=== PATIENT | female | born 1955 | race Caucasian/White ===

== ENCOUNTER → 2018-09-16 | Day surgery (SDC) | payer MEDICAID ==
[~2018-09-16] VITALS: Ht 149.9 cm; Wt 90.7 kg
[~2018-09-16] MED LIST: ACHD5005 PO; ATOR20TA66 PO; ATR20T PO; CALC-787 PO; CARV3.122 PO; CIPR500T78 PO; EQUATE PAIN RELIEVER PO; FESO8TAB PO; FURO40TA4 PO; HYDR25TA4 PO; LBT200T PO; LIDOCAINE 1% INJ 20 ML 20 ML VIAL INJ ONE; LOSA100T57 PO; LOSA100T7 PO; LOSA1TAB23 PO; MIRA25TA PO; MULT-35 PO; NITR-65 PO; OMEP10CA2 PO; OMEP20CA12 PO; OXYB5TAB9 PO; PHEN-640 PO; POTA10TA PO; POTA10TA36 PO; SERT50TA2 PO; SERT50TA9 PO; SOLI10TA4 PO; TOPI50TA37 PO; TRAM50TA2 PO
[2018-09-16 11:06] VITALS: BP 177/87
[2018-09-16 11:21] LABS: BASOPHILS # (AUTO) 0.1 10^3/uL (0.0-0.1); BASOPHILS % (AUTO) 1 % (0-10); EOSINOPHILS % (AUTO) 1 % (0-10); HEMATOCRIT 41 % (35-52); HEMOGLOBIN 13.8 G/DL (11.5-16.0); LYMPHOCYTES # (AUTO) 1.9 X 10^3 (1.0-4.0); LYMPHOCYTES % (AUTO) 34 % (12-44); MEAN CORPUSCULAR HEMOGLOBIN 30 PG (25-34); MEAN CORPUSCULAR HGB CONC 34 G/DL (32-36); MEAN CORPUSCULAR VOLUME 88 FL (80-99); MEAN PLATELET VOLUME 10.7 FL (7.4-10.4); MONOCYTES # (AUTO) 0.5 X 10^3 (0.0-1.0); MONOCYTES % (AUTO) 10 % (0-12); NEUTROPHILS % (AUTO) 55 % (42-75); PLATELET COUNT 183 10^3/uL (130-400); RED CELL DISTRIBUTION WIDTH 13.7 % (10.0-14.5); WHITE BLOOD COUNT 5.5 10^3/uL (4.3-11.0)
[2018-09-16 11:42] LABS: ERYTHROCYTE SEDIMENTATION RATE 11 MM/HR (0-30)
[2018-09-16 11:54] LABS: ALBUMIN 4.2 GM/DL (3.2-4.5); BILIRUBIN,TOTAL 0.9 MG/DL (0.1-1.0); CALCIUM 9.9 MG/DL (8.5-10.1); CREATININE SERUM 1.16 MG/DL (0.60-1.30); MAGNESIUM 2.1 MG/DL (1.8-2.4); POTASSIUM 3.3 MMOL/L (3.6-5.0); TOTAL PROTEIN 7.3 GM/DL (6.4-8.2)
[2018-09-16 13:35] VITALS: BP 164/80
--- OUTSIDE RECORDS SUMMARY | 2018-09-16 16:37 | XMS REPORT | Encounter Summary ---
Author Author [facility] Organization [facility] Address Unknown Phone Unavailable Care Team Providers Care Optomechanical Technician Name Role Phone Sergey Brito PCP Encounter Details Care Team Description Date Type Department Nhi Steward MD [address] Ortho/Med Pavilion L[address] [place] [address] Unspecified urinary incontinence 07/13/2018 [facility] [address] [address] Social History Date Tobacco Use Types Packs/Day Years Used Never Smoker Smokeless Tobacco: Never Used Alcohol Use Drinks/Week oz/Week Comments Never Alcohol Habits Answer Date Recorded How often do you have a drink containing alcohol? Never 07/13/2018 How many drinks containing alcohol do you have on Not asked a typical day when you are drinking? How often do you have six or more drinks on one Not asked occasion? Sex Assigned at Date Recorded Not on file Industry Job Start Date Occupation Not on file Not on file Not on file Travel End Travel History Travel Start No recent travel history available. documented as of this encounter Medications at Time of Discharge Start Date End Date Medication Sig Dispensed Refills 07/01/2018 atorvastatin (LIPITOR) 20 0 mg tablet 07/01/2018 carvedilol (COREG) 3.125 0 mg tablet 07/14/2018 estradiol (ESTRACE) 0.01 Insert or 42.5 g 11 % (0.1 mg/g) vaginal Apply one g creamIndications: Urinary to vaginal incontinence, unspecified area three type times weekly. Apply as directed, apply at bedtime, fingertip application 07/01/2018 furosemide (LASIX) 40 mg 0 tablet Ibuprofen-Diphenhydramine Take by 0 (ADVIL PM) 200-38 mg tab mouth. 07/01/2018 losartan-hydrochlorothiaz 0 zachery (HYZAAR) 100-25 mg tablet mirabegron(+) ER Daily 0 (MYRBETRIQ) 25 mg tablet naproxen sodium(+) Take 1 tablet 0 (ALEVE) 220 mg tablet by mouth twice daily. Take with food. 07/01/[address](+) 0 (PRILOSEC) 20 mg capsule Phentermine (LOMAIRA) 8 Take by 0 mg tab mouth. 07/01/2018 potassium chloride 0 (K-DUR) 10 mEq tablet 07/01/2018 sertraline (ZOLOFT) 100 0 mg tablet 07/01/2018 topiramate (TOPAMAX) 100 0 mg tablet documented as of this encounter Plan of Treatment Not on filedocumented as of this encounter Procedures Comments Procedure Name Priority Date/Time Associated Diagnosis URINALYSIS, MICROSCOPIC Routine 07/13/2018 Urinary incontinence, 9:00 AM CDT unspecified type URINALYSIS DIPSTICK Routine 07/13/2018 Urinary incontinence, 9:00 AM CDT unspecified type documented in this encounter Results * URINALYSIS, MICROSCOPIC (07/13/2018 9:00 AM CDT) WBCs,UA 2-10 0 - 2 /HPF [facility] RBCs,UA 0-2 0 - 3 /HPF [facility] MucousUA 2+ [facility] Squamous 2-5 0 - 5 [facility] Epithelial Cells Specimen Urine - Urine Performing Organization Address City/State/Zipcode Phone Number [facility] [address] [place] [address] * URINALYSIS DIPSTICK (07/13/2018 9:00 AM CDT) Color,UA PAPO [facility] Turbidity,UA 2+ (A) CLEAR-CLEAR [facility] Specific 1.032 1.003 - 1.035 [facility] [place]-Urine pH,UA 5.0 5.0 - 8.0 [facility] Protein,UA 2+ (A) NEG-NEG [facility] Glucose,UA NEG NEG-NEG [facility] Ketones,UA NEG NEG-NEG [facility] Bilirubin,UA NEG NEG-NEG [facility] Blood,UA NEG NEG-NEG [facility] Urobilinogen,UA INCREASED (A) NORM-NORMAL [facility] Nitrite,UA NEG NEG-NEG [facility] Leukocytes,UA 1+ (A) NEG-NEG [facility] Urine Ascorbic NEG NEG-NEG [facility] Acid, UA Specimen Urine - Urine Performing Organization Address City/State/Zipcode Phone Number [facility] [address] [place] [address] documented in this encounter Visit Diagnoses Diagnosis Urinary incontinence, unspecified type documented in this encounter
--- OUTSIDE RECORDS SUMMARY | 2018-09-16 16:37 | XMS REPORT | Clinical Summary ---
Author Author [facility] Organization [facility] Address Unknown Phone Unavailable Care Team Providers Care Shoe Fitter Name Role Phone Sergey Brito PCP Source Comments Some departments are not documenting in the electronic medical record. If you d o not see the information that you expected, contact Release of Information in [facility] [employer] Information Management department at [phone] for further assistan ce in locating additional records.[facility] Allergies Comments Active Allergy Reactions Severity Noted Date Josr Inhibitors COUGH Low 07/13/2018 "Makes me real depressed and cry." Oxycodone SEE COMMENTS Low 12/02/2017 Medications End Date Status Medication Sig Dispensed Refills Start Date Active losartan-hydrochlorothiaz 0 zachery (HYZAAR) 100-25 mg 9 tablet Active mirabegron(+) ER Daily 0 (MYRBETRIQ) 25 mg tablet Active atorvastatin (LIPITOR) 20 0 mg tablet [address](+) 0 (PRILOSEC) 20 mg capsule 9 Active furosemide (LASIX) 40 mg 0 tablet 9 Active sertraline (ZOLOFT) 100 0 mg tablet 9 Active potassium chloride 0 (K-DUR) 10 mEq tablet 9 Active carvedilol (COREG) 3.125 0 mg tablet 9 Active topiramate (TOPAMAX) 100 0 mg tablet 9 Active naproxen sodium(+) Take 1 tablet 0 (ALEVE) 220 mg tablet by mouth twice daily. Take with food. Active Ibuprofen-Diphenhydramine Take by 0 (ADVIL PM) 200-38 mg tab mouth. Active Phentermine (LOMAIRA) 8 Take by 0 mg tab mouth. Active estradiol (ESTRACE) 0.01 Insert or 42.5 g 11 07/14/201 % (0.1 mg/g) vaginal Apply one g 9 creamIndications: Urinary to vaginal incontinence, unspecified area three type times weekly. Apply as directed, apply at bedtime, fingertip application Active Problems Problem Noted Date Urge incontinence 07/13/2018 Overview: Referred Dr Palmer 07/13/18 Persistent incontinence ~ UI Denies SANCHEZ History bladder suspension with mesh ~ per patient x 2 Urethral bulking x 2, most recent 11/2017 ~ macroplastique L ast Assessment & Plan: UA micro Recommend Vaginal estrace cream recommend discontinuing Myrbetriq with elevated BP Hold on starting other bladder medications at this time Avoid dietary irritants Recommend Timed and double void Urge suppression Likely candidate for Interstim, she met with Dr Steward and she would like to proceed with Interstim, 09/01/18, 09/08/18 Panel Information With CPT Code Panel 1 Surgeon Role Nhi Steward MD Primary Procedure Laterality Anesthesia INCISION FOR IMPLANTATION SACRAL NERVE NEUROSTIMULATOR ELECTRODE ARRAY [96193 (CPT)] N/A Monitored Anesthesia Care (MAC) Panel Information With CPT Code Panel 1 Surgeon Role Nhi Steward MD Primary Procedure Laterality Anesthesia INSERTION/ REPLACEMENT PERIPHERAL/ GASTRIC NEUROSTIMULATOR PULSE GENERATOR/ MANAGER CULINARY/ DIRECTOR/ INDUCTIVE COUPLING [94738 (CPT)] N/A Monitored Anesthesia Care (MAC) Encounters Care Team Description Date Type Specialty Nhi Steward MD Unspecified urinary incontinence 07/13/2018 Hospital Lab Encounter Nhi Steward MD Urinary incontinence, unspecified type (Primary Dx); Urge incontinence 07/13/2018 Office Visit Urology Nhi Steward MD Urge incontinence (Primary Dx) 07/13/2018 Prep for Case Urology from Last 3 Months Family History Medical History Relation Name Comments Heart Attack Brother Hypertension Brother Kidney Disease Brother Stroke Brother Heart Attack Father Hypertension Father Heart Attack Mother Hypertension Mother Diabetes Sister Heart Attack Sister Hypertension Sister Relation Name Status Comments Brother Father Mother Sister Social History Date Tobacco Use Types Packs/Day [...] Travel Start No recent travel history available. Last Filed Vital Signs Time Taken Vital Sign Reading 07/13/2018 9:00 AM CDT Blood Pressure 165/96 07/13/2018 9:00 AM CDT Pulse 62 - Temperature - - Respiratory Rate - - Oxygen Saturation - - Inhaled Oxygen - Concentration 07/13/2018 8:59 AM CDT Weight 93.4 kg (206 lb) 07/13/2018 8:59 AM CDT Height 149.9 cm (4' 11") 07/13/2018 8:59 AM CDT Body Mass Index 41.61 Plan of Treatment Health Maintenance Due Date Last Done Comments HEPATITIS C SCREENING 1953 PHYSICAL (COMPREHENSIVE) 1960 EXAM HIV SCREENING 1968 DTAP/TDAP VACCINES (1 - 12/01/1971 Tdap) CERVICAL CANCER SCREENING 12/01/1983 BREAST CANCER SCREENING 1993 COLORECTAL CANCER 12/01/2003 SCREENING SHINGLES RECOMBINANT 12/01/2003 VACCINE (1 of 2) INFLUENZA VACCINE 01/11/2019 06/19/2009 Procedures Comments Procedure Name Priority Date/Time Associated Diagnosis URINALYSIS, MICROSCOPIC Routine 07/13/2018 Urinary incontinence, 9:00 AM CDT unspecified type URINALYSIS DIPSTICK Routine 07/13/2018 Urinary incontinence, 9:00 AM CDT unspecified type POC URINE DIPSTICK MANUAL Routine 07/13/2018 Urinary incontinence, READ unspecified type from Last 3 Months Results * URINALYSIS, MICROSCOPIC (07/13/2018 9:00 AM CDT) WBCs,UA 2-10 0 - 2 /HPF [facility] RBCs,UA 0-2 0 - 3 /HPF [facility] MucousUA 2+ [facility] Squamous 2-5 0 - 5 [facility] Epithelial Cells Specimen Urine - Urine Performing Organization Address City/State/Zipcode Phone Number [facility] [address] [place] [address] * URINALYSIS DIPSTICK (07/13/2018 9:00 AM CDT) Color,UA PAPO [facility] Turbidity,UA 2+ (A) CLEAR-CLEAR [facility] Specific 1.032 1.003 - 1.035 [facility] [place]-Urine pH,UA 5.0 5.0 - 8.0 [facility] [...] Specimen Urine - Urine Performing Organization Address City[facility] Phone Number [facility] [address] [place] [address] * POC URINE DIPSTICK MANUAL READ (07/13/2018) Urine Glucose neg IN CLINIC POC Urine Bilirubin neg IN CLINIC POC Urine Ketone neg IN CLINIC POC Urine Specific 1.030 IN CLINIC [place] POC Urine Blood POC trace IN CLINIC Urine PH POC 6.0 IN CLINIC Urine Protein 100 IN CLINIC POC Urine 0.2 IN CLINIC Urobilinogen POC Urine Nitrite neg IN CLINIC POC Urine neg IN CLINIC Leukocytes POC Color,UA yellow IN CLINIC Turbidity,UA cloudy IN CLINIC Specimen Urine - Urine Performing Organization Address City/[facility]/Zipcode Phone Number IN CLINIC from Last 3 Months Insurance Type Payer Benefit Subscriber ID Effective Phone Address Plan / Dates Group AETNA MEDICAID AETNA xxxxxxxxxxx 2018-P [facility] Advance Directives Patient has advance care planning documents on file. For more information, everette barrera contact: [facility] [address] [place] [address]
--- OUTSIDE RECORDS SUMMARY | 2018-09-16 16:37 | XMS REPORT | Encounter Summary ---
Author Author [facility] Organization [facility] Address Unknown Phone Unavailable Care Team Providers Care Cargo Worker Name Role Phone Sergey Brito PCP Encounter Details Care Team Description Date Type Department Nhi Steward MD [address] Ortho/Med Pavilion [address] A [place], [place] [id number] Urge incontinence (Primary Dx) 07/13/2018 Prep for Case [facility] [address] [place] [id number] Social History Date Tobacco Use Types Packs/Day [...] history available. documented as of this encounter Plan of Treatment Not on filedocumented as of this encounter Visit Diagnoses Diagnosis Urge incontinence - Primary documented in this encounter
--- OUTSIDE RECORDS SUMMARY | 2018-09-16 16:38 | XMS REPORT | Continuity of Care Document ---
Demographics Preferred Language Unknown Marital Status Unknown Holiness Affiliation Unknown Race Unknown Ethnic Group Unknown Author Organization Unknown Address Unknown Allergies Active Description Code Type Severity Reaction Onset Reported/Identified Relationship to Patient Clinical Status Yes NIKOLE INHIBITORS NIKOLE INHIBITORS MILD Yes NIKOLE INHIBITORS MILD MILD Yes NIKOLE INHIBITORS MILD SIDE EFFECT Yes OXYCODONE MODERATE MODERATE Yes OXYCODONE MODERATE OTHER Yes NIKOLE Inhibitors [id number] Drug Allergy Unknown N/A 04/11/2011 Yes NIKOLE Inhibitors [id number] Drug Allergy Mild COUGH 12/02/2017 Yes oxycodone [id number] Drug Allergy Mild DEPRESSION 12/02/2017 Medications Medication Packaging Start Date Stop Date Route Dosage Sig AMLODIPINE TAB 10 MG (NORVASC) MG 08/16/2018 08/16/2018 ONCE&1358 CLONIDINE TTS-2 PATCH PAT 0.2 MG (CATAPRES TTS-2 WEEKLY PATCH) 08/16/2018 08/20/2018 Q1WK&1700 POTASSIUM CHLORIDE TAB 10 MEQ (K-DUR) Dose(s) 08/16/2018 08/23/2018 BID&0800,2000 NITROGLYCERIN PATCH PAT 0.2 MG MG 08/17/2018 08/23/2018 Daily&0900 SERTRALINE TAB 50 MG (ZOLOFT) Dose(s) 08/17/2018 08/23/2018 Daily&0900 LOSARTAN TAB 100 MG (COZAAR) MG 08/17/2018 08/23/2018 Daily&0900 FUROSEMIDE TAB 40 MG (LASIX) MG 08/17/2018 08/23/2018 Daily&0900 MultiVits (Thera M Plus) (gjtobqiv-jzkq-emqfgeh) oral tablet Dose(s) 08/17/2018 09/15/2018 Daily&0900 CALCIUM 600MG W VIT D TAB 600 MG (OSCAL/W VIT D) Dose(s) 08/17/2018 08/23/2018 Daily&0900 CARVEDILOL TAB 3.125 MG (COREG) MG 08/17/2018 08/17/2018 ONCE&0800,2000 Problems Date Dx Coded Attending Type Code Diagnosis Diagnosed By 09/12/2014 Ot 278.00 09/12/2014 Ot 401.9 09/12/2014 Ot 424.0 09/12/2014 Ot 429.3 09/12/2014 Ot V72.84 09/30/2014 RENETTA HAZEL, ZAMZAM Bonner Ot 596.51 09/30/2014 RENETTA HAZEL, ZAMZAM Bonner Ot 599.82 09/30/2014 RENETTA HAZEL, ZAMZAM Bonner Ot 788.33 10/03/2014 RENETTA HAZEL, ZAMZAM Bonner Ot 596.51 10/03/2014 RENETTA HAZEL, ZAMZAM Bonner Ot 599.82 10/03/2014 RENETTA HAZEL, ZAMZAM Bonner Ot 788.30 10/03/2014 RENETTA HAZEL, ZAMZAM Bonner Ot V72.63 10/03/2014 RENETTA HAZEL, ZAMZAM Bonner Ot V74.8 01/12/2015 BAIMA, CHARISSA L CLIENT CARE MANAGER Ot 272.4 01/12/2015 BAIMA, CHARISSA L CLIENT CARE MANAGER Ot 278.00 01/12/2015 BAIMA, CHARISSA L CLIENT CARE MANAGER Ot 401.9 01/12/2015 BAIMA, CHARISSA L CLIENT CARE MANAGER Ot 786.09 01/12/2015 BAIMA, CHARISSA L CLIENT CARE MANAGER Ot 272.4 01/12/2015 BAIMA, CHARISSA L CLIENT CARE MANAGER Ot 278.00 01/12/2015 BAIMA, CHARISSA L CLIENT CARE MANAGER Ot 401.9 01/12/2015 BAIMA, CHARISSA L CLIENT CARE MANAGER Ot 786.09 06/14/2015 BAIMA, CHARISSA L CLIENT CARE MANAGER Ot 272.4 06/14/2015 BAIMA, CHARISSA L CLIENT CARE MANAGER Ot 278.00 06/14/2015 BAIMA, CHARISSA L CLIENT CARE MANAGER Ot 401.9 06/14/2015 BAIMA, CHARISSA L CLIENT CARE MANAGER Ot 786.09 02/12/2016 W 278.00 OBESITY, UNSPECIFIED 02/12/2016 W 456.8 02/12/2016 W 553.3 DIAPHRAGMATIC HERNIA WITHOUT MENTION OF OBSTRUCTION OR GANGRENE 02/12/2016 W 562.12 02/12/2016 W 569.0 02/12/2016 W 716.90 ARTHROPATHY, UNSPECIFIED, SITE UNSPECIFIED 02/12/2016 W E66.9 OBESITY, UNSPECIFIED 02/12/2016 W I86.8 VARICOSE VEINS OF OTHER SPECIFIED SITES 02/12/2016 W K21.9 GASTRO-ESOPHAGEAL REFLUX DISEASE WITHOUT ESOPHAGITIS 02/12/2016 W K57.30 DVRTCLOS OF LG INT W/O PERFORATION OR ABSCESS W/O BLEEDING 02/12/2016 W K62.0 ANAL POLYP 02/12/2016 A K62.1 RECTAL POLYP 02/12/2016 W M08.90 JUVENILE ARTHRITIS, UNSPECIFIED, UNSPECIFIED SITE 02/12/2016 W V12.3 PERSONAL HISTORY OF DISEASES OF BLOOD AND BLOOD-FORMING ORGANS 02/12/2016 W V12.72 02/12/2016 W Z86.010 PERSONAL HISTORY OF COLONIC POLYPS 02/12/2016 W Z86.2 PERSONAL HISTORY OF DISEASES OF THE BLOOD AND BLOOD-FORMING ORGANS AND CERTAIN DISORDERS INVOLVING THE IMMUNE MECHANISM 03/17/2017 Sergey Brito 401.9 UNSPECIFIED ESSENTIAL HYPERTENSION 03/17/2017 Sergey Brito I10 ESSENTIAL (PRIMARY) HYPERTENSION 03/17/2017 Sergey Brito 272.4 OTHER AND UNSPECIFIED HYPERLIPIDEMIA 03/17/2017 Sergey Brito 401.9 UNSPECIFIED ESSENTIAL HYPERTENSION 03/17/2017 Sergey Brito E78.5 HYPERLIPIDEMIA, UNSPECIFIED 03/17/2017 Sergey Brito I10 ESSENTIAL (PRIMARY) HYPERTENSION 03/17/2017 Sergey Brito 272.4 OTHER AND UNSPECIFIED HYPERLIPIDEMIA 03/17/2017 Sergey Brito 401.9 UNSPECIFIED ESSENTIAL HYPERTENSION 03/17/2017 Sergey Brito E78.5 HYPERLIPIDEMIA, UNSPECIFIED 03/17/2017 Sergey Brito W I10 ESSENTIAL (PRIMARY) HYPERTENSION 03/17/2017 Sergey Brito 272.4 OTHER AND UNSPECIFIED HYPERLIPIDEMIA 03/17/2017 Sergey Brito 401.9 UNSPECIFIED ESSENTIAL HYPERTENSION 03/17/2017 Sergey Brito E78.5 HYPERLIPIDEMIA, UNSPECIFIED 03/17/2017 Sergey Brito I10 ESSENTIAL (PRIMARY) HYPERTENSION 03/17/2017 Sergey Brito 272.4 OTHER AND UNSPECIFIED HYPERLIPIDEMIA 03/17/2017 Sergey Brito 401.9 UNSPECIFIED ESSENTIAL HYPERTENSION 03/17/2017 Sergey Brito E78.5 HYPERLIPIDEMIA, UNSPECIFIED 03/17/2017 Sergye Brito I10 ESSENTIAL (PRIMARY) HYPERTENSION 03/17/2017 Sergey Brito 272.4 OTHER AND UNSPECIFIED HYPERLIPIDEMIA 03/17/2017 Alisha, Sergey W 401.9 UNSPECIFIED ESSENTIAL HYPERTENSION 03/17/2017 Paarie, Sergey W E78.5 HYPERLIPIDEMIA, UNSPECIFIED 03/17/2017 Paarie, Sergey W I10 ESSENTIAL (PRIMARY) HYPERTENSION 03/17/2017 Paarie, Sergey W 272.4 OTHER AND UNSPECIFIED HYPERLIPIDEMIA 03/17/2017 Paarie, Sergey W 401.9 UNSPECIFIED ESSENTIAL HYPERTENSION 03/17/2017 PaSergey sargent W E78.5 HYPERLIPIDEMIA, UNSPECIFIED 03/17/2017 Paarie, Sergey W I10 ESSENTIAL (PRIMARY) HYPERTENSION 06/04/2017 Paarie, Sergey W 401.0 MALIGNANT ESSENTIAL HYPERTENSION 06/04/2017 Paarie, Sergey W 585.9 CHRONIC KIDNEY DISEASE, UNSPECIFIED 06/04/2017 Paarie, Sergey W 728.87 MUSCLE WEAKNESS (GENERALIZED) 06/04/2017 Sergey Brito W I10 ESSENTIAL (PRIMARY) HYPERTENSION 06/04/2017 PaSergey sargent M62.81 MUSCLE WEAKNESS (GENERALIZED) 06/04/2017 Sergey Brito N18.9 CHRONIC KIDNEY DISEASE, UNSPECIFIED 06/04/2017 Sergey Brito V43.65 KNEE JOINT REPLACED BY OTHER MEANS 06/04/2017 Sergey Brito A V54.89 06/04/2017 Sergey Brito Z47.89 ENCOUNTER FOR OTHER ORTHOPEDIC AFTERCARE 06/04/2017 Sergey Brito Z96.651 PRESENCE OF RIGHT ARTIFICIAL KNEE JOINT 08/04/2017 Sergey Brito W 401.9 UNSPECIFIED ESSENTIAL HYPERTENSION 08/04/2017 Sergey Brito W I10 ESSENTIAL (PRIMARY) HYPERTENSION 08/04/2017 Sergey Brito W 401.9 UNSPECIFIED ESSENTIAL HYPERTENSION 08/04/2017 Sergey Brito W I10 ESSENTIAL (PRIMARY) HYPERTENSION 08/04/2017 Sergey Brito W 401.9 UNSPECIFIED ESSENTIAL HYPERTENSION 08/04/2017 Sergey Brito W I10 ESSENTIAL (PRIMARY) HYPERTENSION 09/22/2017 DAWNA FOOTE V43.65 KNEE JOINT REPLACED BY OTHER MEANS 09/22/2017 DAWNA FOOTE Z96.651 PRESENCE OF RIGHT ARTIFICIAL KNEE JOINT 10/21/2017 Sergey Brito A 401.9 UNSPECIFIED ESSENTIAL HYPERTENSION 10/21/2017 Sergey Brito A I10 ESSENTIAL (PRIMARY) HYPERTENSION 10/21/2017 Sergey Brito A 401.9 UNSPECIFIED ESSENTIAL HYPERTENSION 10/21/2017 Sergey Brito A I10 ESSENTIAL (PRIMARY) HYPERTENSION 12/09/2017 ZAMZAM JACKSON MD Ot E66.01 MORBID (SEVERE) OBESITY DUE TO EXCESS CA 12/09/2017 ZAMZAM JACKSON MD Ot E78.00 PURE HYPERCHOLESTEROLEMIA, UNSPECIFIED 12/09/2017 ZAMZAM JACKSON MD, Ot F41.9 ANXIETY DISORDER, UNSPECIFIED 12/09/2017 ZAMZAM JACKSON MD Ot I10 ESSENTIAL (PRIMARY) HYPERTENSION 12/09/2017 ZAMZAM JACKSON MD Ot I25.10 ATHSCL HEART DISEASE OF [place] CORONARY 12/09/2017 ZAMZAM JACKSON MD Ot K21.9 GASTRO-ESOPHAGEAL REFLUX DISEASE WITHOUT 12/09/2017 ZAMZAM JACKSON MD, Ot N32.81 OVERACTIVE BLADDER 12/09/2017 ZAMZAM JACKSON MD, Ot N36.42 INTRINSIC SPHINCTER DEFICIENCY (ISD) 12/09/2017 ZAMZAM JACKSON MD Ot N39.46 MIXED INCONTINENCE 12/09/2017 ZAMZAM JACKSON MD Ot Z68.41 BODY MASS INDEX (BMI) 40.0-44.9, ADULT 12/09/2017 ZAMZAM JACKSON MD Ot Z79.899 OTHER ASTRONOMY DEPARTMENT CHAIR (CURRENT) DRUG THERAPY 12/09/2017 ZAMZAM JACKSON MD Ot Z96.653 PRESENCE OF ARTIFICIAL KNEE JOINT, BILAT 12/10/2017 ZAMZAM JACKSON MD Ot E66.01 MORBID (SEVERE) OBESITY DUE TO EXCESS CA 12/10/2017 ZAMZAM JACKSON MD Ot E78.00 PURE HYPERCHOLESTEROLEMIA, UNSPECIFIED 12/10/2017 ZAMZAM JACKSON MD, Ot F41.9 ANXIETY DISORDER, UNSPECIFIED 12/10/2017 ZAMZAM JACKSON MD Ot I10 ESSENTIAL (PRIMARY) HYPERTENSION 12/10/2017 ZAMZAM JACKSON MD Ot I25.10 ATHSCL HEART DISEASE OF [place] CORONARY 12/10/2017 ZAMZAM JACKSON MD Ot K21.9 GASTRO-ESOPHAGEAL REFLUX DISEASE WITHOUT 12/10/2017 ZAMZAM JACKSON MD Ot N32.81 OVERACTIVE BLADDER 12/10/2017 ZAMZAM JACKSON MD, Ot N36.42 INTRINSIC SPHINCTER DEFICIENCY (ISD) 12/10/2017 RENETTA HAZEL, ZAMZAM Bonner Ot N39.46 MIXED INCONTINENCE 12/10/2017 RENETTA HAZEL, ZAMZAM Bonner Ot Z68.41 BODY MASS INDEX (BMI) 40.0-44.9, ADULT 12/10/2017 RENETTA HAZEL, ZAMZAM Bonner Ot Z79.899 OTHER SKILLED NURSING (CURRENT) DRUG THERAPY 12/10/2017 ZAMZAM JACKSON MD Ot Z96.653 PRESENCE OF ARTIFICIAL KNEE JOINT, BILAT 01/25/2018 Sergey Brito 786.59 OTHER CHEST PAIN 01/25/2018 Sergey Brito R07.81 PLEURODYNIA 01/25/2018 Sergey Brito 786.59 OTHER CHEST PAIN 01/25/2018 Sergey Brito R07.81 PLEURODYNIA 08/04/2018 Sergey Brito V70.0 ROUTINE GENERAL MEDICAL EXAMINATION AT A HEALTH CARE FACILITY 08/04/2018 Sergey Brito Z00.00 ENCOUNTER FOR GENERAL ADULT MEDICAL EXAMINATION WITHOUT ABNORMAL FINDINGS 08/04/2018 Sergey Brito V70.0 ROUTINE GENERAL MEDICAL EXAMINATION AT A HEALTH CARE FACILITY 08/04/2018 Sergey Brito Z00.00 ENCOUNTER FOR GENERAL ADULT MEDICAL EXAMINATION WITHOUT ABNORMAL FINDINGS 08/16/2018 Sergey Brito 401.9 UNSPECIFIED ESSENTIAL HYPERTENSION 08/16/2018 Sergey Brito I10 ESSENTIAL (PRIMARY) HYPERTENSION 08/17/2018 Sergey Brito 401.9 UNSPECIFIED ESSENTIAL HYPERTENSION 08/17/2018 Sergey Brito 427.81 SINOATRIAL NODE DYSFUNCTION 08/17/2018 Sergey Brito 780.4 DIZZINESS AND GIDDINESS 08/17/2018 Sergey Brito 784.0 HEADACHE 08/17/2018 Sergey Brito I10 ESSENTIAL (PRIMARY) HYPERTENSION 08/17/2018 Sergey Brito R00.1 BRADYCARDIA, UNSPECIFIED 08/17/2018 Sergey Brito R42 DIZZINESS AND GIDDINESS 08/17/2018 Sergey Brito R51 HEADACHE Procedures There is no data. Results Test Result Range Lipid Panel - 06/19/16 07:50 C/HDL 4.6 3.7-6.7 Cholesterol 231 mg/dL 100-240 HDL 50 mg/dL 30-85 LDL-Calculated 157 mg/dL 0-100 Trig 121 mg/dL 35-160 VLDL 24 mg/dL 0-42 Magnesium - 06/19/16 07:50 Mg++ 2.2 mg/dL 1.6-2.6 BMP - 07/10/16 08:03 Anion Gap 15 6-14 BUN 27 mg/dL 5-25 Calcium 9.7 mg/dL 8.3-10.4 Chloride 105 mmol/L 95-114 CO2 27 mEq/L 22-33 Creat 1.36 mg/dL 0.50-1.50 eGFR 39 mL/min/1.73m2 >59 Glucose 91 mg/dL 70-110 Osmo 300 280-295 Potassium 4.3 mmol/L 3.5-5.3 Sodium 143 mmol/L 134-148 Magnesium - 07/10/16 08:03 Mg++ 2.5 mg/dL 1.6-2.6 Lipid Panel - 08/21/16 07:55 C/HDL 3.2 3.7-6.7 Cholesterol 175 mg/dL 100-240 HDL 54 mg/dL 30-85 LDL-Calculated 105 mg/dL 0-100 Trig 78 mg/dL 35-160 VLDL 16 mg/dL 0-42 Sed Rate - 02/11/17 10:18 Sed Rate 23 mm/hr 9-15 Comprehensive Metabolic Panel - 03/17/17 08:31 Albumin 3.8 g/dL 3.6-5.1 ALP 112 U/L 35-130 ALT 14 U/L 6-45 Anion Gap 11 6-14 AST 20 U/L 2-40 BUN 22 mg/dL 5-25 Calcium 9.5 mg/dL 8.3-10.4 Chloride 108 mmol/L 95-114 CO2 29 mEq/L 22-33 Creat 1.11 mg/dL 0.50-1.50 eGFR 50 mL/min/1.73m2 >59 Globulin 3.1 g/dL 2.3-3.5 Glucose 95 mg/dL 70-110 Osmo 300 280-295 Potassium 3.8 mmol/L 3.5-5.3 Sodium 144 mmol/L 134-148 TBil 0.6 mg/dL 0.2-1.2 TP 6.9 g/dL 6.0-8.3 Lipid Panel - 03/17/17 08:31 C/HDL 3.1 3.7-6.7 Cholesterol 167 mg/dL 100-240 HDL 54 mg/dL 30-85 LDL-Calculated 99 mg/dL 0-100 Trig 72 mg/dL 35-160 VLDL 14 mg/dL 0-42 Lipid Panel - 08/04/17 08:30 C/HDL 2.9 3.7-6.7 Cholesterol 174 mg/dL 100-240 HDL 61 mg/dL 30-85 LDL-Calculated 95 mg/dL 0-100 Trig 88 mg/dL 35-160 VLDL 18 mg/dL 0-42 BMP - 10/21/17 13:43 Anion Gap 18 6-14 BUN 24 mg/dL 5-25 Calcium 9.5 mg/dL 8.3-10.4 Chloride 107 mmol/L 95-114 CO2 23 mEq/L 22-33 Creat 1.12 mg/dL 0.50-1.50 eGFR 49 mL/min/1.73m2 >59 Glucose 123 mg/dL 70-110 Osmo 302 280-295 Potassium 3.7 mmol/L 3.5-5.3 Sodium 144 mmol/L 134-148 Cardiac Panel - 08/16/18 13:07 CK 99 U/L 26-174 CK-MB 2.7 ng/ml 0.0-9.2 Myoglobin 54.1 ng/ml 1.6-106.0 Troponin <0.020 ng/mL 0.0-0.4 BNP - 08/16/18 13:07 BNP 155.00 pg/ml 0.00-100.00 Catecholamine+VMA, 24-Hr Urine - 08/19/18 09:36 VMA, Urine 6.7 mg/L Undefined VMA, Urine, 24hr 3.4 mg/24 hr 0.0-7.5 Epinephrine, Urine 2 ug/L Undefined Epinephrine, U, 24hr 1 ug/24 hr 0-20 Norepinephrine, Ur 66 ug/L Undefined Norepinephrine,U,24h 33 ug/24 hr 0-135 Dopamine, Urine 281 ug/L Undefined Dopamine, Ur, 24hr 141 ug/24 hr 0-510 Metanephrines, Frac, Qn, 24-Hr - 08/19/18 09:36 Normetanephrine, Ur 380 ug/L Undefined Metanephrine, Ur 87 ug/L Undefined Normetanephr.,U,24h 190 ug/24 hr 82-500 Metanephrine, U,24hr 44 ug/24 hr 45-290 Catecholamine+VMA, 24-Hr Urine - 08/19/18 09:36 EPINEPHRINE, URINE 2 UG/L UNDEFINED EPINEPHRINE, U, 24HR 1 UG/24 HR 0-20 NOREPINEPHRINE, UR 66 UG/L UNDEFINED NOREPINEPHRINE,U,24H 33 UG/24 HR 0-135 DOPAMINE, URINE 281 UG/L UNDEFINED DOPAMINE, UR, 24HR 141 UG/24 HR 0-510 VMA, URINE 6.7 MG/L UNDEFINED VMA, URINE, 24HR 3.4 MG/24 HR 0.0-7.5 Metanephrines, Frac, Qn, 24-Hr - 08/19/18 09:36 NORMETANEPHRINE, UR 380 UG/L UNDEFINED NORMETANEPHR.,U,24H 190 UG/24 HR 82-500 METANEPHRINE, UR 87 UG/L UNDEFINED METANEPHRINE, U,24HR 44 UG/24 HR 45-290 Encounters ACCT No. Visit Date/Time Discharge Status Pt. Type Provider Facility Loc./Unit Complaint [id number] 08/27/2018 19:07:00 Document Registration [id number] 12/09/2017 06:00:00 12/09/2017 09:30:00 DIS Outpatient ZAMZAM JACKSON MD Via [facility] ISD,INCONTINENCE [id number] 01/02/2015 08:20:00 01/02/2015 23:59:59 CLS Outpatient CHARISSA KIM Via [facility] CARD [id number] 12/29/2014 10:19:00 12/29/2014 23:59:59 CLS Outpatient CHARISSA KIM Via [facility] CARD [id number] 09/29/2014 10:15:00 09/30/2014 10:45:00 DIS Outpatient ZAMZAM JACKSON MD [facility] [id number] 09/27/2014 05:47:00 09/27/2014 23:59:59 CLS Outpatient ALFIE HARPER MD Via [facility] PREOP [id number] 09/12/2014 11:00:00 09/12/2014 23:59:59 CLS Outpatient ZAMZAM JACKSON MD Via [facility] PREOP [id number] 12/02/2017 11:51:00 Document Registration [id number] 09/12/2014 10:59:00 Document Registration [id number] 09/01/2018 07:53:00 09/01/2018 23:59:00 DIS Outpatient Sergey Brito [id number] 08/19/2018 09:21:00 08/19/2018 23:59:00 DIS Outpatient Sergey Brito [id number] 08/16/2018 16:25:00 08/17/2018 14:35:00 DIS Outpatient Paarie [facility] MED-SURG [id number] 08/04/2018 09:22:00 08/04/2018 23:59:00 DIS Outpatient RichardSergey sargent [id number] 01/25/2018 13:39:00 01/25/2018 23:59:00 DIS Outpatient PaSergey sargent [id number] 10/21/2017 13:36:00 10/21/2017 23:59:00 DIS Outpatient RichardSergey sargent [id number] 06/08/2017 10:21:00 09/22/2017 11:40:00 DIS Outpatient FOOTEDAWNA [id number] 08/04/2017 08:26:00 08/04/2017 23:59:00 DIS Outpatient Sergey Brito [id number] 05/11/2017 00:00:00 06/04/2017 13:06:00 DIS Outpatient Sergey Brito [id number] 03/17/2017 08:26:00 03/17/2017 23:59:00 DIS Outpatient Sergey Brito [id number] 02/11/2017 10:14:00 02/11/2017 23:59:00 DIS Outpatient CASTILLO GAONA [id number] 02/02/2017 09:27:00 02/02/2017 23:59:00 DIS Outpatient CASTILLO GAONA [id number] 01/18/2017 00:00:00 01/18/2017 23:59:00 DIS Outpatient CASTILLO GAONA [id number] 01/14/2017 08:24:00 01/14/2017 23:59:00 DIS Outpatient CASTILLO GAONA [id number] 01/14/2017 00:00:00 01/14/2017 23:59:00 DIS Outpatient CASTILLO GAONA [id number] 08/21/2016 07:43:00 08/21/2016 23:59:00 DIS Outpatient Omar Hatch [id number] 07/29/2016 09:08:00 07/29/2016 23:59:00 DIS Outpatient Sergey Brito [id number] 07/24/2016 14:31:00 07/24/2016 23:59:00 DIS Outpatient Sergey Brito [id number] 07/10/2016 07:58:00 07/10/2016 23:59:00 DIS Outpatient Omar Hatch [id number] 06/19/2016 07:47:00 06/19/2016 23:59:00 DIS Outpatient Omar Hatch [id number] 01/30/2016 11:51:00 01/30/2016 11:51:00 CAN Outpatient Dion Angeles [id number] 08/16/2018 13:56:12 Document Registration [id number] 02/12/2016 00:00:00 Document Registration
--- OUTSIDE RECORDS SUMMARY | 2018-09-16 16:38 | XMS REPORT | Encounter Summary ---
Author Author [facility] Organization [facility] Address Unknown Phone Unavailable Care Team Providers Care Developmental Specialist Name Role Phone Sergey Brito PCP Reason for Visit * Reason Comments Incontinence Encounter Details Care Team Description Date Type Department Rafi Steward MD [address] [facility] [address] [place], [place] [id number] Urinary incontinence, unspecified type (Primary Dx); Urge incontinence 07/13/2018 Office Visit [facility] [address] [place] [id number] Social History Date Tobacco Use Types Packs/Day [...] history available. documented as of this encounter Last Filed Vital Signs Time Taken Vital [...] 8:59 AM CDT Body Mass Index 41.61 documented in this encounter Patient Instructions * Patient Instructions* Dale Gallagher PA-C - 07/13/2018 9:00 AM CDT Discontinue Myrbetriq ~ elevated Blood pressure Urinate every 3 hours, even if you do not need to urinate and then return to the bathroom again 5 minutes later to completely empty your bladder even if you do not feel like you need to urinate Urinary Urgency Suppression Instructions When you experience an urge to void: First: Stop & stand still. Sit down if you can. Don't move. You need to stay very still to maintain control. Second: Relax. Take a deep breath, then let it out. Try to think of something other than the bathroom. Try to make the urge go away. Third: Contract your pelvic muscles 3 to 4 times to keep from leaking. Finally , when you feel the urge go away, walk normally to the bathroom. If the urge recurs on the way, stop & repeat. Practice this at home until you are able to suppress the urge & feel confident. Do not be discouraged if control is not immediate. Adapted from "Stay[employer]" -- Susie Reynaga. Treatment program . Bladder Diet Information Least Bothersome Foods Most Bothersome Foods Fruit ? Apricots ? Bananas ? Blueberries ? Dates ? Melon (honeydew and watermelon) ? Prunes ? Pears ? Raisins ? Cranberry juice ? Grapefruit and grapefruit juice ? Marquise ? Oranges and orange juice ? Pineapple and pineapple juice ? Strawberries Vegetables ? Avocados ? Asparagus ? Beets ? Broccoli ? Avera Sprouts ? Cabbage ? Carrots ? Cauliflower ? Celery ? [place] ? Eggplant ? Mushrooms ? Peas ? Potatoes (white potatoes, yams, sweet potatoes) ? Radishes ? Spinach ? Squash ? Turnips ? Zucchini ? [place] peppers ? Pickles ? Sauerkraut ? Tomatoes and tomato products Grains ? Oats ? Rice Proteins ? Beef ? Fish (shrimp, tuna fish and salmon) ? Eggs ? Nuts ? Peanut butter ? Pork ? Poultry (chicken and turkey) ? Aranda ? Processed sandwich meats (salami, bologna) ? Soy Dairy ? Milk (low-fat and whole) ? Cheeses (mild) ? Yogurt Condiments ? Herbs ? Garlic or any herb infused olive oil ? [place] ? Horseradish ? Ketchup ? Salad Dressings ? Soy sauce ? Vinegar ? [place] Sauce Beverages ? Grain beverages/Coffee substitutes (Cafix, Kerrie, [place], Postum) ? Water ? Alcohol ? Coffee (caffeinated and decaffeinated) ? Tea (caffeinated and decaffeinated) ? Carbonated drinks (cola, non-cola, diet, and caffeine-free) Other Foods ? Popcorn ? Pretzels ? Chocolate ? food ? Marshallese food ? Pizza ? Spicy foods ? Gilberto food Additives/Artificial Sweeteners ? Artificial sweeteners (Equal (sweetener), NutraSweet, Saccharin, and Swee tN Low) ? Monosodium glutamate (MSG ? ESTROGEN CREAM APPLICATION: Wash hands with soap and water. Please draw a line with the estrogen cream from the tip of your index finger to the first line on your finger. Insert your finge r into the vagina up until it is comfortable and swirl around. While removing yo ur finger, please spread up and down on external vaginal/ urethral area. This sh ould be used THREE NIGHTS PER WEEK PRIOR TO BEDTIME. This will only help with improving the quality of vaginal tissue, pain with inte rcourse and urinary tract prevention if used regularly. It is not absorbed syste mically and is not associated with clotting, cancer, stroke, or heart attacks. Fingertip Application Method For Cream 1. Wash your hands with soap and water and dry thoroughly. 2. Squeeze tube to express out 1 gram of cream (about enough to cover the tip of your index finger, from the last joint to the finger tip. (see Figure 1) Figure 1 This instruction sheet is provided to help your practitioner explain his/her pre ferred method for applying cream. Your doctor or nurse will likely use this she et to assist in their patient education activities. Please note that this infor mation is not intended to replace your practitioners instructions: always fol low your doctors specific directions regarding the use of any prescription me dications 3. Locate the vaginal opening (see Figure 2). Immediately above the vaginal ope niikta is the urethra (a small opening where urine is eliminated from you body). The urethra may not be as easily identified as the vagina because the opening is much smaller, however, us the diagram to determine its approximate location. 4. Carefully spread the cream onto the top wall of the vagina just underneath th e urethral area (see Figure 2, yellow highlighted area). As the cream is spread , some may be gently inserted into the vagina: however, it is not necessary to p ush the cream high into the vagina. Rub this into the vaginal wall underneath th e urethra as one would rub lotion into the skin. 5. Do not use the applicator that may come with the prescription for the cream. Use only the small finger tip amount as noted above. Figure 2 [facility] Pre-Operative Instructions Surgical Procedure: Interstim Stage 1 and 2 Date of Surgery: Stage 1: 09/01 Stage 2: 09/08 Arrival Time at the Admission Office (Main Lobby): TBD To ensure that your surgery can proceed without delay, you will be contacted by a phone triage nurse from the Preoperative Assessment Clinic (PAC) to complete t his process. Please review the information given to you by your surgeon. You will be called by the surgery staff with your day of surgery arrival time be tween 2:30 - 4:30 PM the business day prior to surgery. If you have not heard fr om them after 4:30 PM, please call to confirm your arrival time. Pre-Operative Assessment and Instructions:Once you speak to the nurse or are see n in the Pre-Operative Assessment Clinic, you will be given medication instructi ons. However, if surgery is within 2 weeks, please read and follow the medicatio n instructions below to prepare for surgery before you speak with the phone buster webber nurse: 14 days prior to surgery: ? Contact your doctor who prescribes any of the following to develop a plan for surgery: o Blood thinners such as aspirin, Aggrenox, Brilinta, Effient, Eliquis, enoxapar in (Lovenox), clopidogrel (Plavix), cilostazol, pentoxifylline (Trental), Pradax a, Savaysa, ticlopidine, Xarelto, and warfarin (Coumadin) o Immunosuppresants such as methotrexate, azathioprine, sulfasalazine, everolimu s, sirolimus, Humira, Remicade, Enbrel, Simponi, Orencia, Cimzia, Actemra, and X eljanz o Chemotherapy ? Stop most vitamins, herbals, and supplements including (but not limited to): o Alpha lipoic acid, black cohosh, CoQ10, echinacea, eye vitamins, fish oil, fla xseed oil, garlic, gingko biloba, ginseng, glucosamine/chondroitin, kava, Lovaza , lutein, lysine, multivitamin, red yeast rice, LIZETH-e, saw palmetto, Woodlyn s wort, turmeric, valerian root, Vascepa, Vitamin A, Vitamin B complex, Vitamin C, Vitamin E ? You DO NOT need to stop: iron, magnesium, potassium 7 days prior to surgery: ? Stop anti-inflammatory medications such as ibuprofen (Advil, Motrin), naproxen (Aleve), Aster-Bridg[place], Excedrin, Midol, celecoxib (Celebrex), diclofenac ([place] antonio), diflunisal, etodolac, flurbiprofen, indomethacin, ketoprofen, ketorolac, m eloxicam, nabumetone, and piroxicam Do not drink alcohol within 24 hours of surgery. Please do not eat or drink anything after midnight. No gum, mints, hard candy, snacks, coffee, etc or chewing tobacco allowed after midnight before surgery. Y ou may brush your teeth but be sure to rinse and spit. Please shower with an over the counter antibacterial soap the evening before or the morning of surgery. If your surgery is scheduled as an outpatient, you must arrange to have someone drive you home and have someone with you 24 hours after anesthesia. If you have any questions, please contact your provider's office at [phone] . For emergencies during evenings, nights, weekends, and holidays, contact The [facility] wire drawing machine operator and request they contact the on-call Urology Resident at [phone]. documented in this encounter Progress Notes * Rafi Steward MD - 07/13/2018 9:00 AM CDT Date of Service: 07/13/2018 Subjective: Colleen Shukla is a 62 y.o. female, new patient here for evaluation of incontine nce Chief Complaint Patient presents with Incontinence History of Present Illness Colleen Shukla is a 62 y.o. Female, with a Pmhx of HTN, incontinence. She presents today for evaluation referred by Dr. Palmer from [facility] or evaluation of persistent incontinence. History of urethral bulking implants x 2 per patient. Most recent, November 2017-Macroplastique. She reports urinary incontinence x 8 years. Primarily urge incontinence, denies stress urinary incontinence. She is wearing 5 pads/ day and occasionally having to change her clothes. She reports a good stream, denies straining to urinate. She voids every 3-6 karoline rs. She reports increased urgency with a full bladder. Nocturia x4. She denie s nocturnal enuresis. She is currently on Myrbetriq 25 mg which she reports she is taken for several years. She has tried Vesicare in the past with minimal ch humphrey. She has a history of bladder suspension x 2 per patient. Bowel movement-regular daily. Intake-primarily soda x3, occasional water. She has had a hysterectomy. She is sexually active, denies pain with intercours e. She denies pelvic prolapse. She denies dysuria hematuria, recurrent urinary tract infections, kidney stones, urinary retention, breast cancer, diabetes, neurological history, back surgery, pelvic trauma, family history urologic cancer, tobacco, recent imaging, history of Botox, recent URD evaluation, pelvic floor physical therapy. 07/13/18 PVR 18cc 07/13/18 AUA 32, bother 6 Past Medical History: Diagnosis Date Anxiety disorder Depression Heart disease Hypertension Incontinence Past Surgical History: Procedure Laterality Date BARIATRIC SURGERY BLADDER SURGERY SECTION COLONOSCOPY HX APPENDECTOMY HX HYSTERECTOMY HX JOINT REPLACEMENT HX TONSILLECTOMY HX TUBAL LIGATION URETHRAL STRICTURE DILATATION Allergies: Allergies Allergen Reactions Josr Inhibitors COUGH Oxycodone SEE COMMENTS "Makes me real depressed and cry." Social History Socioeconomic History Marital status: Single Spouse name: Not on file Number of children: Not on file Years of education: Not on file Highest education level: Not on file Occupational History Not on file Tobacco Use Smoking status: Never Smoker Smokeless tobacco: Never Used Substance and Sexual Activity Alcohol use: Never Frequency: Never Drug use: Never Sexual activity: Yes Partners: Male Other Topics Concern Not on file Social History Narrative Not on file Family History Problem Relation Age of Onset Heart Attack Mother Hypertension Mother Heart Attack Father Hypertension Father Diabetes Sister Heart Attack Sister Hypertension Sister Heart Attack Brother Hypertension Brother Kidney Disease Brother Stroke Brother Review of Systems Constitutional: Positive for diaphoresis and fatigue. Negative for activity fregoso ge, appetite change, chills, fever and unexpected weight change. HENT: Negative for congestion, hearing loss, mouth sores and sinus pressure. Eyes: Negative for visual disturbance. Respiratory: Negative for apnea, cough, chest tightness and shortness of breath. Cardiovascular: Positive for leg swelling. Negative for chest pain and palpitati ons. Gastrointestinal: Negative for abdominal pain, anal bleeding, blood in stool, co nstipation, diarrhea, nausea, rectal pain and vomiting. Genitourinary: Positive for enuresis and urgency. See HPI Musculoskeletal: Negative for arthralgias, back pain, gait problem and myalgias. Skin: Negative for rash and wound. Neurological: Positive for numbness. Negative for dizziness, tremors, seizures, syncope, weakness, light-headedness and headaches. Hematological: Negative for adenopathy. Does not bruise/bleed easily. Psychiatric/Behavioral: Positive for dysphoric mood. Negative for decreased conc entration. The patient is not nervous/anxious. Objective: atorvastatin (LIPITOR) 20 mg tablet carvedilol (COREG) 3.125 mg tablet [START ON 07/14/2018] estradiol (ESTRACE) 0.01 % (0.1 mg/g) vaginal cream Inse rt or Apply one g to vaginal area three times weekly. Apply as directed, apply a t bedtime, fingertip application furosemide (LASIX) 40 mg tablet Ibuprofen-Diphenhydramine (ADVIL PM) 200-38 mg tab Take by mouth. losartan-hydrochlorothiazide (HYZAAR) 100-25 mg tablet mirabegron(+) ER (MYRBETRIQ) 25 mg tablet Daily naproxen sodium(+) (ALEVE) 220 mg tablet Take 1 tablet by mouth twice daily. Take with food. omeprazole DR(+) (PRILOSEC) 20 mg capsule Phentermine (LOMAIRA) 8 mg tab Take by mouth. potassium chloride (K-DUR) 10 mEq tablet sertraline (ZOLOFT) 100 mg tablet topiramate (TOPAMAX) 100 mg tablet Vitals: 07/13/18 0859 07/13/18 0900 BP: (!) 137/107 (!) 165/96 Pulse: 65 62 Weight: 93.4 kg (206 lb) Height: 149.9 cm (59") Body mass index is 41.61 kg/m. Physical Exam Constitutional: She is oriented to person, place, and time. She appears well-dev eloped and well-nourished. HENT: Head: Normocephalic. Eyes: Conjunctivae are normal. Neck: Normal range of motion. Cardiovascular: Normal rate. Pulmonary/Chest: Effort normal. Abdominal: Soft. obese Genitourinary: Genitourinary Comments: Sensation normal Reflex intact Hypermobility none Leak negative Prolapse - none Estrogen status- moderate atrophy Levator tone poor No pain with palpation in vagina No mesh palpated Musculoskeletal: Normal range of motion. Neurological: She is alert and oriented to person, place, and time. Skin: Skin is warm and dry. Psychiatric: She has a normal mood and affect. Most Recent Available labs: Comprehensive Metabolic Profile No results found for: NA, K, CL, CO2, GAP, BUN, CR, GLU No results found for: CA , PO4, ALBUMIN, TOTPROT, ALKPHOS, AST, ALT, TOTBILI, GFR, GFRAA Urine Lab Results Component Value Date/Time UCOLOR PAPO 07/13/2018 09:00 AM TURBID 2+ (A) 07/13/2018 09:00 AM USPGR 1.032 07/13/2018 09:00 AM UPH 5.0 07/13/2018 09:00 AM UPROTEIN 2+ (A) 07/13/2018 09:00 AM UAGLU NEG 07/13/2018 09:00 AM UKET NEG 07/13/2018 09:00 AM UBILE NEG 07/13/2018 09:00 AM UBLD NEG 07/13/2018 09:00 AM UROB INCREASED (A) 07/13/2018 09:00 AM Lab Results Component Value Date/Time UNIT NEG 07/13/2018 09:00 AM ULEU 1+ (A) 07/13/2018 09:00 AM UWBC 2-10 07/13/2018 09:00 AM URBC 0-2 07/13/2018 09:00 AM No results found for: CULTURE [facility] imaging: none Outside imaging: none for review Assessment and Plan: Problem Urge Incontinence Referred Dr Palmer 07/13/18 Persistent incontinence ~ UI Denies SANCHEZ History bladder suspension with mesh ~ per patient x 2 Urethral bulking x 2, most recent 11/2017 ~ macroplastique Encounter Medications Medications losartan-hydrochlorothiazide (HYZAAR) 100-25 mg tablet mirabegron(+) ER (MYRBETRIQ) 25 mg tablet Sig: Daily atorvastatin (LIPITOR) [address](+) (PRILOSEC) 20 mg capsule furosemide (LASIX) 40 mg tablet sertraline (ZOLOFT) 100 mg tablet potassium chloride (K-DUR) 10 mEq tablet carvedilol (COREG) 3.125 mg tablet topiramate (TOPAMAX) 100 mg tablet naproxen sodium(+) (ALEVE) 220 mg tablet Sig: Take 1 tablet by mouth twice daily. Take with food. Ibuprofen-Diphenhydramine (ADVIL PM) 200-38 mg tab Sig: Take by mouth. Phentermine (LOMAIRA) 8 mg tab Sig: Take by mouth. estradiol (ESTRACE) 0.01 % (0.1 mg/g) vaginal cream Sig: Insert or Apply one g to vaginal area three times weekly. Apply as direct ed, apply at bedtime, fingertip application Dispense: 42.5 g Refill: 11 Order Specific Question: Supervising Physician Answer: RAFI STEWARD [[id number]] Problem List Items Addressed This Visit Urge incontinence UA micro Recommend Vaginal estrace cream recommend discontinuing Myrbetriq with elevated BP Hold on starting other bladder medications at this time Avoid dietary irritants Recommend Timed and double void Urge suppression Likely candidate for Interstim, she met with Dr Steward and she would like to pro ceed with Interstim, 09/01/18, 09/08/18 Panel Information With CPT Code Panel 1 Surgeon Role Rafi Steward MD Primary Procedure Laterality Anesthesia INCISION FOR IMPLANTATION SACRAL NERVE NEUROSTIMULATOR ELECTRODE ARRAY [87016 (C PT)] N/A Monitored Anesthesia Care (MAC) Panel Information With CPT Code Panel 1 Surgeon Role Rafi Steward MD Primary Procedure Laterality Anesthesia INSERTION/ REPLACEMENT PERIPHERAL/ GASTRIC NEUROSTIMULATOR PULSE GENERATOR/ RECE IVER/ DIRECTOR/ INDUCTIVE COUPLING [43012 (CPT)] N/A Monitored Anesthesia Care (MAC) Other Visit Diagnoses Urinary incontinence, unspecified type - Primary Relevant Medications estradiol (ESTRACE) 0.01 % (0.1 mg/g) vaginal cream (Start on 07/14/2018) Other Relevant Orders POC URINE DIPSTICK MANUAL READ (Completed) URINALYSIS DIPSTICK (Completed) URINALYSIS, MICROSCOPIC (Completed) Orders Placed This Encounter URINALYSIS DIPSTICK URINALYSIS, MICROSCOPIC POC URINE DIPSTICK estradiol (ESTRACE) 0.01 % (0.1 mg/g) vaginal cream Dale Gallagher PA-C Urology Dr Dr. Steward also met with patient and determined plan of care Will send letter to PMD - Sergey Brito ATTESTATION I personally performed the nation portions of the E/M visit, discussed case with Ph ysician Fiberglasser and concur with documentation of history, physical exam, asses sment, and treatment plan unless otherwise noted. Staff name: Rafi Steward MD Date: 07/14/2018 * Ana Martinez MA - 07/13/2018 9:00 AM CDT pvr- 18ml documented in this encounter Plan of Treatment Not on filedocumented as of this encounter Procedures Comments Procedure Name Priority Date/Time Associated Diagnosis POC URINE DIPSTICK MANUAL Routine 07/13/2018 Urinary incontinence, READ unspecified type documented in this encounter Results * URINALYSIS, MICROSCOPIC (07/13/2018 9:00 AM CDT) WBCs,UA 2-10 0 - 2 /HPF [facility] RBCs,UA 0-2 0 - 3 /HPF [facility] MucousUA 2+ [facility] Squamous 2-5 0 - 5 [facility] Epithelial Cells Specimen Urine - Urine Performing Organization Address [facility] Phone Number [facility] [address] [place] [address] * URINALYSIS DIPSTICK (07/13/2018 9:00 AM CDT) Color,UA PAPO [facility] Turbidity,UA 2+ (A) CLEAR-CLEAR [facility] Specific 1.032 1.003 - 1.035 [facility] [place]-Urine pH,UA 5.0 5.0 - 8.0 [facility] [...] Specimen Urine - Urine Performing Organization Address [facility] Phone Number MAIN LAB [address] [place] [address] * POC URINE DIPSTICK MANUAL READ (07/13/2018) Urine Glucose neg IN CLINIC POC Urine Bilirubin neg IN CLINIC POC Urine Ketone neg IN CLINIC POC Urine Specific 1.030 IN CLINIC [place] POC Urine Blood POC trace IN CLINIC Urine PH POC 6.0 IN CLINIC Urine Protein 100 IN CLINIC POC Urine 0.2 IN CLINIC Urobilinogen POC Urine Nitrite neg IN CLINIC POC Urine neg IN CLINIC Leukocytes POC Color,UA yellow IN CLINIC Turbidity,UA cloudy IN CLINIC Specimen Urine - Urine Performing Organization Address City/State/Zipcode Phone Number IN CLINIC documented in this encounter Visit Diagnoses Diagnosis Urinary incontinence, unspecified type - Primary Urge incontinence * Assessment & Plan Note - Dale Gallagher PA-C - 07/13/2018 10:09 AM CDT Associated Problem(s): Urge incontinence UA micro Recommend Vaginal estrace cream recommend discontinuing Myrbetriq with elevated BP Hold on starting other bladder medications at this time Avoid dietary irritants Recommend Timed and double void Urge suppression Likely candidate for Interstim, she met with Dr Steward and she would like to pro ceed with Interstim, 09/01/18, 09/08/18 Panel Information With CPT Code Panel 1 Surgeon Role Rafi Steward MD Primary Procedure Laterality Anesthesia INCISION FOR IMPLANTATION SACRAL NERVE NEUROSTIMULATOR ELECTRODE ARRAY [85000 (C PT)] N/A Monitored Anesthesia Care (MAC) Panel Information With CPT Code Panel 1 Surgeon Role Rafi Steward MD Primary Procedure Laterality Anesthesia INSERTION/ REPLACEMENT PERIPHERAL/ GASTRIC NEUROSTIMULATOR PULSE GENERATOR/ RECE IVER/ DIRECTOR/ INDUCTIVE COUPLING [99003 (CPT)] N/A Monitored Anesthesia Care (MAC) documented in this encounter
--- NOTE | 2018-09-16 18:20 | OPERATIVE REPORT ---
DATE OF SERVICE: 09/16/2018 PREOPERATIVE DIAGNOSIS: Syncope. POSTOPERATIVE DIAGNOSIS: Syncope. PROCEDURE: Implantable loop recorder implantation. INDICATIONS: The patient is a 62-year-old lady, who has had episodes of syncope and near syncope. Implantable loop recorder implantation was carried out after having obtained an informed consent. DESCRIPTION OF PROCEDURE: [facility]. The left prepectoral area was prepared and draped in the usual sterile fashion. The tools provided with Zinkia Reveal LINQ device were used to make a subcutaneous pocket anterior to the left fourth intercostal space into which the device was placed and the skin edges were closed using Dermabond and Steri-Strips. She tolerated the procedure well. The serial number of the device is [id number]. Job ID: [id number] DocumentID: [id number] Dictated Date: 09/16/2018 13:12:51 Energy Efficiency Finance Manager Date: 09/16/2018 18:19:32 Dictated By: COLLEEN OVIEDO MD, MA, FACP, FACC, MTDD
== END | disposition home or self-care (01) ==
LOC: CATH 10:40
PROVIDERS: ATTEND Internal Medicine Cardiovascular Disease
DX: R55 Syncope and collapse (principal); I10 Essential (primary) hypertension; E78.5 Hyperlipidemia, unspecified; R06.09 Other forms of dyspnea; E88.81 Metabolic syndrome and other insulin resistance; R73.01 Impaired fasting glucose; E66.9 Obesity, unspecified; Z68.41 Body mass index [BMI] 40.0-44.9, adult; Z79.899 Other long term (current) drug therapy
CPT/HCPCS: 33285; 36415; 80053; 83735; 84443; 85025; 85652

== ENCOUNTER 2018-11-15 03:36 | Inpatient (IN) | payer MEDICARE, MEDICAID ==
[2018-11-15] VITALS (21 sets, daily range): BP systolic 108–167; BP diastolic 66–116
[~2018-11-15] VITALS: Ht 149.9 cm; Wt 92.3 kg
[~2018-11-15 03:36] MED LIST changes: -LIDOCAINE 1% INJ 20 ML 20 ML VIAL INJ ONE; +OMEP20CA13 PO
[2018-11-15] MEDS ORDERED: ASPIRIN 81 MG CHEW (CHILDREN'S ASA) PO ONE (03:45)
[2018-11-15] MEDS: NITROGLYCERIN 0.4 MG SL TABS BTL 25'S SL PRN ×2 (03:52→04:01)
[2018-11-15 03:54] LABS: BASOPHILS % (AUTO) 1 % (0-10); EOSINOPHILS % (AUTO) 0 % (0-10); HEMATOCRIT 41 % (35-52); HEMOGLOBIN 13.8 G/DL (11.5-16.0); LYMPHOCYTES % (AUTO) 28 % (12-44); MEAN CORPUSCULAR HEMOGLOBIN 30 PG (25-34); MEAN CORPUSCULAR HGB CONC 34 G/DL (32-36); MEAN CORPUSCULAR VOLUME 88 FL (80-99); MEAN PLATELET VOLUME 10.2 FL (7.4-10.4); MONOCYTES # (AUTO) 0.7 X 10^3 (0.0-1.0); MONOCYTES % (AUTO) 10 % (0-12); NEUTROPHILS # (AUTO) 4.4 X 10^3 (1.8-7.8); NEUTROPHILS % (AUTO) 62 % (42-75); PLATELET COUNT 172 10^3/uL (130-400); RED CELL DISTRIBUTION WIDTH 13.6 % (10.0-14.5); WHITE BLOOD COUNT 7.2 10^3/uL (4.3-11.0)
--- NOTE | 2018-11-15 03:55 | ED Chest Pain ---
General Chief Complaint: Chest Pain Stated Complaint: CHEST PAIN Source: patient, EMS, other Exam Limitations: no limitations History of Present Illness Date Seen by Provider: Nov 15, 2018 Time Seen by Provider: 03:33 Initial Comments Patient presents to ER by EMS with chief complaint that she's been having chest pain since 2300 yesterday but she was able to get back to sleep. Then her significant other woke her up around 1:30 this morning and she was still having the left-sided chest pain constant, sharp, 7 out of 10. She says it has not gone away so she decided to come in. She had this one time before. She denies a history of coronary disease and is not on blood thinners. She does follow with Dr. Hatch and recently had a implanted quality assurance monitor body placed to see if she needed a pacemaker. She's not having any shortness of breath nor history of respiratory disease, smoking, diabetes. She does have high blood pressure and hypercholesterolemia. She denies increasing edema. The patient has a history of acid reflux on an antacid daily as well as anxiety. She denies having taken anything for the chest pain. Allergies and Home Medications Allergies Coded Allergies: NIKOLE Inhibitors (Verified Allergy, Mild, COUGH, 12/02/17) oxycodone (Verified Allergy, Mild, DEPRESSION, 12/02/17) Home Medications Atorvastatin Calcium 20 Mg Tablet, 20 MG PO DAILY, (Reported) Calcium Citrate/Vitamin D3 1 Each Tablet, PO DAILY, (Reported) Carvedilol 3.125 Mg Tablet, 3.125 MG PO BID, (Reported) Fesoterodine Fumarate 8 Mg Tab.er.24h, 8 MG PO DAILY, (Reported) Furosemide 40 Mg Tablet, 40 MG PO DAILY, (Reported) Losartan Potassium 100 Mg Tablet, 100 MG PO DAILY, (Reported) Mirabegron 25 Mg Tab.er.24h, 25 MG PO DAILY, (Reported) Multivitamin 1 Each Tablet, 1 EACH PO DAILY, (Reported) Nitrofurantoin Monohyd/M-Cryst 100 Mg Capsule, 1 TAB PO BID Prescribed by: CHELSY PERERA on 12/09/17821 Omeprazole 20 Mg Capsule.dr, 20 MG PO BID, (Reported) Phenazopyridine HCl 200 Mg Tablet, 1 TAB PO TID Prescribed by: CHELSY PERERA on 12/09/17821 Potassium Chloride 10 Meq Tab.er.prt, 10 MEQ PO BID, (Reported) Sertraline HCl 50 Mg Tablet, 50 MG PO DAILY, (Reported) Topiramate 50 Mg Tablet, 50 MG PO DAILY, (Reported) Patient Home Medication List Home Medication List Reviewed: Yes Review of Systems Review of Systems Constitutional: No chills, No diaphoresis EENTM: No Blurred Vision, No Double Vision, No Mouth Swelling Respiratory: Denies Cough, Denies Shortness of Air Cardiovascular: See HPI, Chest Pain; Denies Edema, Denies Lightheadedness Gastrointestinal: Denies Constipated, Denies Diarrhea, Denies Nausea Genitourinary: Denies Discharge, Denies Drainage Musculoskeletal: No back pain, No joint pain Past Ovhwjqx-Lkpyrd-Yzmxgz Hx Patient Social History Alcohol Use: Denies Use Recreational Drug Use: No Smoking Status: Never a Smoker Recent Hopitalizations: No Immunizations Up To Date PED Vaccines UTD: No Date of Influenza Vaccine: Jan 26, 2017 Seasonal Allergies Seasonal Allergies: No Past Medical History Respiratory: No Cardiac: Yes High Cholesterol, Hypertension Neurological: No Reproductive Disorders: No Sexually Transmitted Disease: No HIV/AIDS: No Gastrointestinal: Yes Gastroesophageal Reflux Arthritis Loss of Vision: Bilateral Hearing Impairment: Denies Cancer: No Anxiety, Depression Blood Disorders: No Adverse Reaction/Blood Tranf: No Family Medical History Alcoholism G8 BROTHER Arthritis 19 FATHER 19 MOTHER G8 BROTHER G8 SISTER Cardiovascular disease G8 BROTHER G8 SISTER Completed stroke G8 BROTHER Diabetes mellitus G8 SISTER Hypertension 19 FATHER G8 BROTHER G8 SISTER Myocardial infarction 19 FATHER G8 BROTHER G8 SISTER No Family History of: AIDS Abdominal aortic aneurysm Alzheimer's disease Asthma Cataracts Colon cancer Dementia Drug abuse Glaucoma Kidney disease Parkinson's disease Prostate cancer Respiratory disorder Seizure disorder Severe allergy Thyroid disease Tuberculosis Visual disorder Physical Exam Vital Signs Vital Signs - First Documented 11/15/18 03:36 Temp 97.6 Pulse 59 Resp 20 B/P (MAP) 240/125 (163) Pulse Ox 97 O2 Delivery Room Air Capillary Refill : Less Than 3 Seconds Height, Weight, BMI Height: 4'11.00" Weight: 200lbs. 0.0oz. [id number]; 40.4 BMI Method: General Appearance: WD/WN, Anxious, Other (emotionally labile alternating between short bursts of tears and laughing with jokes.) HEENT: PERRL/EOMI, Pharynx Normal, Moist Mucous Membranes Neck: Full Range of Motion, Normal Inspection Respiratory: No Chest Non Tender; Lungs Clear, Normal Breath Sounds, No Accessory Muscle Use, No Respiratory Distress, Other (chest pain reproducible to direct palpation over the site of implantation of the quality assurance monitor body.) Cardiovascular: Regular Rate, Rhythm, No Edema, Normal Peripheral Pulses Gastrointestinal: Normal Bowel Sounds, Non Tender, Soft Neurologic/Psychiatric: Alert, Oriented x3 Skin: Normal Color, Warm/Dry Critical Care Note Critical Care Start Time: 04:05 Stop Time: 04:30 Total Time (minutes) 25 mins Progress This provider was summonsed the room because the patient and went into a symptomatically bradycardia in the mid 30s and was not answering questions appropriately. Blood pressure had went from 120 systolic down to 77 systolic. We placed the patient in Trendelenburg and started a liter fluids. The patient was given 0.4 mg of atropine IV push. Her heart rate got back into the 50s range initial EKG and the mid 40s demonstrated ST elevation in the inferior leads. We repeated an EKG after discussing the case with cardiology and the heart rate was in the low 50s with still significant ST elevation in leads II, III, and aVF. Cardiology recommended that we call in the catheter lab team and they would be underway. Progress/Results/Core Measures Results/Orders Lab Results Laboratory Tests Test 11/15/18 03:48 Range/Units White Blood Count 7.2 4.3-11.0 10^3/uL Red Blood Count 4.63 4.35-5.85 10^6/uL Hemoglobin 13.8 11.5-16.0 G/DL Hematocrit 41 35-52 % Mean Corpuscular Volume 88 80-99 FL Mean Corpuscular Hemoglobin 30 25-34 PG Mean Corpuscular Hemoglobin Concent 34 32-36 G/DL Red Cell Distribution Width 13.6 10.0-14.5 % Platelet Count 172 130-400 10^3/uL Mean Platelet Volume 10.2 7.4-10.4 FL Neutrophils (%) (Auto) 62 42-75 % Lymphocytes (%) (Auto) 28 12-44 % Monocytes (%) (Auto) 10 0-12 % Eosinophils (%) (Auto) 0 0-10 % Basophils (%) (Auto) 1 0-10 % Neutrophils # (Auto) 4.4 1.8-7.8 X 10^3 Lymphocytes # (Auto) 2.0 1.0-4.0 X 10^3 Monocytes # (Auto) 0.7 0.0-1.0 X 10^3 Eosinophils # (Auto) 0.0 0.0-0.3 10^3/uL Basophils # (Auto) 0.0 0.0-0.1 10^3/uL Prothrombin Time 12.9 12.2-14.7 SEC INR Comment 0.9 0.8-1.4 Activated Partial Thromboplast Time 27 24-35 SEC Sodium Level 143 135-145 MMOL/L Potassium Level 3.1 L 3.6-5.0 MMOL/L Chloride Level 105 98-107 MMOL/L Carbon Dioxide Level 25 21-32 MMOL/L Anion Gap 13 5-14 MMOL/L Blood Urea Nitrogen 21 H 7-18 MG/DL Creatinine 1.04 0.60-1.30 MG/DL Estimat Glomerular Filtration Rate 53 BUN/Creatinine Ratio 20 Glucose Level 108 H 70-105 MG/DL Calcium Level 9.7 8.5-10.1 MG/DL Corrected Calcium 9.6 8.5-10.1 MG/DL Magnesium Level 2.1 1.8-2.4 MG/DL Total Bilirubin 0.6 0.1-1.0 MG/DL Aspartate Amino Transf (AST/SGOT) 27 5-34 U/L Alanine Aminotransferase (ALT/SGPT) 13 0-55 U/L Alkaline Phosphatase 100 40-136 U/L Myoglobin 277.8 H 10.0-92.0 NG/ML Troponin I 1.159 *H <0.028 NG/ML B-Type Natriuretic Peptide 209.2 H <100.0 PG/ML Total Protein 7.8 6.4-8.2 GM/DL Albumin 4.1 3.2-4.5 GM/DL Lipase 16 8-78 U/L My Orders Orders - [facility] Cbc With Automated Diff (11/15/18 03:45) Magnesium (11/15/18 03:45) Chest 1 View, Ap/Pa Only (11/15/18 03:45) Ekg Tracing (11/15/18 03:45) Cardiac Profile 1 (11/15/18 03:45) Comprehensive Metabolic Panel (11/15/18 03:45) Myoglobin Serum (11/15/18 03:45) Protime With Inr (11/15/18 03:45) Partial Thromboplastin Time (11/15/18 03:45) O2 (11/15/18 03:45) Monitor-Rhythm Ecg Trace Only (11/15/18 03:45) Lipid Panel (11/16/18 06:00) Ed Iv/Invasive Line Start (11/15/18 03:45) Lipase (11/15/18 03:45) BNP (11/15/18 03:45) Nitroglycerin 0.4 Mg Btl 25's (Nitrostat (11/15/18 03:45) Aspirin Chewable Tablet (Baby Aspirin Ch (11/15/18 03:45) Ns Iv 1000 Ml (Sodium Chloride 0.9%) (11/15/18 04:07) Atropine Injection (Atropine Injection) (11/15/18 04:30) Ekg Tracing (11/15/18 04:19) Ekg Tracing (11/15/18 04:19) Atropine Injection (Atropine Injection) (11/15/18 04:13) Morphine Injection (Morphine Injection (11/15/18 04:31) Medications Given in ED Vital Signs/I&O 11/15/18 11/15/18 11/15/18 03:36 03:36 03:38 Temp 97.6 Pulse 59 Resp 20 B/P (MAP) 240/125 (163) Pulse Ox 97 96 O2 Delivery Room Air Room Air Room Air Progress Progress Note #1: Time: 03:56 Progress Note Patient was given aspirin en route by EMS. We will try some nitroglycerin after an IV is established. Initial blood pressure per EMS was 172/87. Chest x-ray, BMP. Echocardiogram 2014 Dr. Hatch: EF 60%. Mild diastolic dysfunction. With a normal troponin the heart score would be 5 points. Progress Note #2: Progress Note Her initial discussion with Dr. Acharya at [address] changes consistent with a ST elevation MO and bradycardia on EKG. He wanted us to give the atropine and recheck the EKG after the rate comes up because sometimes the ST changes are transient and do not necessarily coordinate with ST elevation MO. We gave the atropine IV saw a small bump and the heart rate to the 40s and 50s and repeated an EKG approximately 10 minutes later and the ST changes were still present. We called Dr. Acharya back and at that time he said activate catheter team at 0420. He did not want blood thinners or Plavix at this time. Plan was to take the patient straight to coronary catheter lab. Initial ECG Impression Date: Nov 15, 2018 Initial ECG Impression Time: 03:37 Initial ECG Rate: 59 Initial ECG Rhythm: Normal Sinus Initial ECG Intervals: NC (260) Initial ECG Impression: Normal, Nonspecific Changes Initial ECG Comparisson: Unchanged Comment No ST depression or elevation. EKG #1: EKG Time: 04:10 Rate: 45 Rhythm: S.Ino Intervals: NC (296) ECG Comparisson: Changed ECG Impression: Sinus Bradycardia Comment Sinus bradycardia with inferior ST changes consistent with an ST elevation MO. EKG #2: EKG Time: 04:19 Rate: 51 Intervals: NC (320) ECG Comparisson: Changed ECG Impression: Acute MO Comment Significant elevation of the ST segments in leads 2, 3 and aVF consistent with a inferior ST elevation MO. Reciprocal depression in leads 1 and aVL and anterior lead V2 and V1. Diagnostic Imaging Diagonstic Imaging: Xray Plain Films/CT/US/NM/MRI: chest (1v) Reviewed: Reviewed by Me Departure Communication (Admissions) Time/Spoke to Admitting Phy: 04:15 Discussed the case with Dr. Acharya, cardiology and he recommended a repeat EKG and atropine bolus. If that continued to show ST changes then he recommended cardiac catheterization. He is on his way. Impression Primary Impression: ST elevation (STEMI) myocardial infarction Qualified Codes: I21.3 - ST elevation (STEMI) myocardial infarction of unspecified site Additional Impression: Symptomatic bradycardia Disposition: ADMITTED INPATIENT Condition: Critical Admissions Decision to Admit Reason: Admit from ER (General) Decision to Admit/Date: Nov 15, 2018 Time/Decision to Admit Time: 04:20 Departure-Patient Inst. Referrals: FAB NEWMAN DO (PCP/Family) Primary Care Physician Copy Copies To 1: FAB NEWMAN TITUS J Nov 15, 2018 03:55
[2018-11-15 04:06] LABS: INR 0.9 (0.8-1.4); PROTHROMBIN TIME PATIENT 12.9 SEC (12.2-14.7)
[2018-11-15] MEDS ORDERED: NS IV 1000 ML 1,000 ML ONE ×2 (04:07→05:08)
[2018-11-15 04:13] LABS: ALBUMIN 4.1 GM/DL (3.2-4.5); BILIRUBIN,TOTAL 0.6 MG/DL (0.1-1.0); CALCIUM 9.7 MG/DL (8.5-10.1); CREATININE SERUM 1.04 MG/DL (0.60-1.30); MAGNESIUM 2.1 MG/DL (1.8-2.4); POTASSIUM 3.1 MMOL/L (3.6-5.0); TOTAL PROTEIN 7.8 GM/DL (6.4-8.2)
[2018-11-15] MEDS ORDERED: ATROPINE INJ 0.4 MG/ML SDV ONE (04:13)
--- NOTE | 2018-11-15 04:15 | NUR ---
PT'S RESPONSES BECAME INAPPROPRIATE, PT'S SYSTOLIC BLOOD PRESSURE NOTED TO BE [address] STEEL CALLED TO PT'S BEDSIDE IMMEDIATELY.
[2018-11-15] MEDS ORDERED: ATROPINE INJ 0.4 MG/ML SDV IV ONE (04:30)
[2018-11-15] MEDS ORDERED: morphine INJ 10 MG/ML 1ML (SYR OR VIAL) IVP STA (04:31)
[2018-11-15] MEDS ORDERED: HEParin (CATH LAB) 2,000 ML IV ONE (04:58)
[2018-11-15] MEDS ORDERED: fentaNYL INJECTION 100 MCG/2 ML AMP ONE (04:58)
[2018-11-15] MEDS ORDERED: LIDOCAINE 1% INJ 20 ML 20 ML VIAL ONE (04:58)
[2018-11-15] MEDS ORDERED: HEParin 1000 UNIT/ML (10ML VIAL) FOR BOLUS ONE (04:58)
[2018-11-15] MEDS ORDERED: MIDAZOLAM 5 MG/5 ML (VERSED) VIAL ONE (04:58)
[2018-11-15] MEDS ORDERED: NITRO DRIP 25000 MCG/D5W 250 ML IV ONE (04:58)
--- OUTSIDE RECORDS SUMMARY | 2018-11-15 04:58 | XMS REPORT | Encounter Summary ---
Author Author [facility] Organization [facility] Address Unknown Phone Unavailable Care Team Providers Care Business Consultant Name Role Phone Richardarie Sergey PCP Encounter Details Care Team Description Date Type Department Nhi Steward MD [address] Ortho/Med Pavilion L[address] [place] [address] Unspecified urinary incontinence 07/13/2018 [facility] [address] [address] Social History Date Tobacco Use Types Packs/Day Years Used Never Smoker Smokeless Tobacco: Never Used Drinks/Week oz/Week Comments Alcohol Use Never Alcohol Habits Answer Date Recorded How [...] Address City/State/Zipcode Phone Number [facility] [address] [place] [address] * URINALYSIS DIPSTICK (07/13/2018 9:00 AM CDT) Color,UA PAPO [facility] Turbidity,UA 2+ (A) CLEAR-CLEAR [facility] Specific 1.032 1.003 - 1.035 [facility] [place]-Urine pH,UA 5.0 5.0 - 8.0 [facility] [...] Address City/State/Zipcode Phone Number [facility] [address] [place] [address] documented in this encounter Visit Diagnoses Diagnosis Urinary incontinence, unspecified type documented in this encounter
--- OUTSIDE RECORDS SUMMARY | 2018-11-15 04:58 | XMS REPORT | Encounter Summary ---
Author Author [facility] Organization [facility] Address Unknown Phone Unavailable Care Team Providers Care Child Support Specialist Name Role Phone RichardSergey sargent PCP Encounter Details Care Team Description Date Type Department Nhi Steward MD [address] Ortho[facility]Med Pavilion L[address] [place] [address] Urge incontinence (Primary Dx) 07/13/2018 Prep for Case [facility] [address] [place] [address] Social History Date Tobacco Use Types Packs/Day [...]
--- OUTSIDE RECORDS SUMMARY | 2018-11-15 04:58 | XMS REPORT | Clinical Summary ---
Author Author [facility] Organization [facility] Address Unknown Phone Unavailable Care Team Providers Care Automobile Detailer Name Role Phone Sergey Brito PCP Source Comments Some departments are not documenting in the electronic medical record. If you d o not see the information that you expected, contact Release of Information in [facility] Information Management department at [phone] for further assistan ce in locating additional records.[facility] Allergies Comments Active Allergy Reactions Severity Noted [...] FOR IMPLANTATION SACRAL NERVE NEUROSTIMULATOR ELECTRODE ARRAY [95962 (CPT)] N/A Monitored Anesthesia Care (MAC) Panel Information With CPT Code Panel 1 Surgeon Role Nhi Steward MD Primary Procedure Laterality Anesthesia INSERTION/ REPLACEMENT PERIPHERAL/ GASTRIC NEUROSTIMULATOR PULSE GENERATOR/ ELECTRICAL ACCESSORIES II ASSEMBLER/ DIRECTOR/ INDUCTIVE COUPLING [85365 (CPT)] N/A Monitored Anesthesia Care (MAC) Family History Medical History Relation Name Comments [...] travel history available. Last Filed Vital Signs Reading Time Taken Comments Vital Sign 165/96 07/13/2018 9:00 AM CDT Blood Pressure 62 07/13/2018 9:00 AM CDT Pulse - - Temperature - - Respiratory Rate - - Oxygen Saturation - - Inhaled Oxygen Concentration 93.4 kg (206 lb) 07/13/2018 8:59 AM CDT Weight 149.9 cm (4' 11") 07/13/2018 8:59 AM CDT Height 41.61 07/13/2018 8:59 AM CDT Body Mass Index Plan of Treatment Health Maintenance Due Date Last Done Comments HEPATITIS C SCREENING 1953 PHYSICAL (COMPREHENSIVE) 1960 EXAM HIV SCREENING 1968 DTAP/TDAP VACCINES (1 - 12/01/1971 Tdap) CERVICAL CANCER SCREENING 12/01/1983 BREAST CANCER SCREENING 1993 COLORECTAL CANCER 12/01/2003 SCREENING SHINGLES RECOMBINANT 12/01/2003 VACCINE (1 of 2) INFLUENZA VACCINE 01/11/2019 06/19/2009 Results Not on filefrom Last 3 Months Insurance Type Payer Benefit Subscriber ID Effective Phone Address Plan / Dates Group AETNA MEDICAID AETNA xxxxxxxxxxx 2018-P [facility] Advance Directives Patient Tester [employer] Explanation Type Date Recorded Advance Directive/DPOA
--- OUTSIDE RECORDS SUMMARY | 2018-11-15 04:59 | XMS REPORT | Encounter Summary ---
Author Author [facility] Organization [facility] Address Unknown Phone Unavailable Care Team Providers Care Environmental Health Physician Name Role Phone RichardSergey sargent PCP Reason for Visit * Reason Comments Incontinence Encounter Details Care Team Description Date Type Department Rafi Steward MD [address] Ortho/Med Pavilion L[address] [place] [address] Urinary incontinence, unspecified type (Primary Dx); Urge incontinence 07/13/2018 Office Visit [facility] [address] [place] [address] Social History Date Tobacco Use [...] of this encounter Last Filed Vital Signs Reading Time Taken [...] 07/13/2018 8:59 AM CDT Body Mass Index documented in this encounter Patient Instructions * [...] ? Asparagus ? Beets ? Broccoli ? [place] Sprouts ? Cabbage ? Carrots ? Cauliflower ? Celery ? [place] ? Eggplant ? Mushrooms ? Peas ? Potatoes (white potatoes, yams, sweet potatoes) ? Radishes ? Spinach ? Squash ? Turnips ? Zucchini ? [place] peppers ? Pickles ? Sauerkraut ? Tomatoes [...] or any herb infused olive oil ? [place] ? Horseradish ? Ketchup ? Salad Dressings ? Soy sauce ? Vinegar ? [place] Sauce Beverages ? Grain beverages/Coffee substitutes (Cafix, Kerrie, Tess, Postum) ? Water ? Alcohol ? Coffee (caffeinated and decaffeinated) ? Tea (caffeinated and decaffeinated) ? Carbonated drinks (cola, non-cola, diet, and caffeine-free) Other Foods ? Popcorn ? Pretzels ? Chocolate ? food ? [place] food ? Pizza ? Spicy foods ? [...] Figure 2). Immediately above the vaginal ope nikita is the urethra (a small opening where [...] amount as noted above. Figure 2 [facility] Pre-Operative Instructions Surgical Procedure: Interstim Stage 1 [...] confirm your arrival time. Pre-Operative Assessment and Instructions: Once you speak to the nurse or are seen in the Pre-Operative Assessment Clinic, you will be given medication instructions. However, if surgery is within 2 weeks , please read and follow the medication instructions below to prepare for surger y before you speak with the phone triage nurse: 14 days prior to surgery: ? [...] multivitamin, red yeast rice, LIZETH-e, saw palmetto, Lesvia s wort, turmeric, valerian root, Vascepa, Vitamin A, Vitamin B complex, Vitamin C, Vitamin E ? You DO NOT need to stop: iron, magnesium, potassium 7 days prior to surgery: ? Stop anti-inflammatory medications such as ibuprofen (Advil, Motrin), naproxen (Aleve), Aster-Alva, Excedrin, Midol, celecoxib (Celebrex), diclofenac ([place] antonio), diflunisal, etodolac, flurbiprofen, indomethacin, ketoprofen, ketorolac, [...] questions, please contact your provider's office at [phone] . For emergencies during evenings, nights, weekends, and holidays, contact [facility] winding machine operator and request they contact the on-call Urology Resident at [phone]. documented in this encounter Progress Notes * [...] for evaluation referred by Dr. [place] from [facility] or evaluation of persistent incontinence. History of [...] Specific Question: Supervising Physician Answer: RAFI STEWARD [[id number]] Problem List Items Addressed This Visit Urge [...] FOR IMPLANTATION SACRAL NERVE NEUROSTIMULATOR ELECTRODE ARRAY [52573 (C PT)] N/A Monitored Anesthesia Care (MAC) Panel Information With CPT Code Panel 1 Surgeon Role Rafi Steward MD Primary Procedure Laterality Anesthesia INSERTION/ REPLACEMENT PERIPHERAL/ GASTRIC NEUROSTIMULATOR PULSE GENERATOR/ RECE IVER/ DIRECTOR/ INDUCTIVE COUPLING [92340 (CPT)] N/A Monitored Anesthesia Care (MAC) Other [...] E/M visit, discussed case with Ph ysician Staff Electronic Warfare Officer and concur with documentation of history, physical [...] Specimen Urine - Urine Performing Organization Address [facility] Phone Number [facility] [address] [place] [address] * URINALYSIS DIPSTICK (07/13/2018 9:00 AM CDT) Color,UA PAPO [facility] Turbidity,UA 2+ (A) CLEAR-CLEAR [facility] Specific 1.032 1.003 - 1.035 [facility] [place]-Urine pH,UA 5.0 5.0 - 8.0 [facility] [...] Specimen Urine - Urine Performing Organization Address [facility] Phone Number [facility] [address] [place] [address] * POC URINE DIPSTICK MANUAL READ (07/13/2018) Urine Glucose neg IN CLINIC POC Urine Bilirubin neg IN CLINIC POC Urine Ketone neg IN CLINIC POC Urine Specific 1.030 IN CLINIC [place] POC Urine Blood POC trace IN CLINIC [...] FOR IMPLANTATION SACRAL NERVE NEUROSTIMULATOR ELECTRODE ARRAY [19453 (C PT)] N/A Monitored Anesthesia Care (MAC) Panel Information With CPT Code Panel 1 Surgeon Role Rafi Steward MD Primary Procedure Laterality Anesthesia INSERTION/ REPLACEMENT PERIPHERAL/ GASTRIC NEUROSTIMULATOR PULSE GENERATOR/ RECE IVER/ DIRECTOR/ INDUCTIVE COUPLING [92360 (CPT)] N/A Monitored Anesthesia Care (MAC) documented in this encounter
--- OUTSIDE RECORDS SUMMARY | 2018-11-15 04:59 | XMS REPORT | Continuity of Care Document ---
Demographics Preferred Language Unknown Marital Status Unknown Holiness Affiliation Unknown Race Unknown Ethnic Group Unknown Author Organization Unknown Address Unknown Phone Unavailable Allergies Active Description Code Type Severity Reaction Onset Reported/Identified Relationship to Patient Clinical Status Yes NIKOLE INHIBITORS NIKOLE INHIBITORS MILD Yes NIKOLE INHIBITORS MILD MILD Yes NIKOLE INHIBITORS MILD SIDE EFFECT Yes OXYCODONE MODERATE MODERATE Yes OXYCODONE MODERATE OTHER Yes NIKOLE Inhibitors [id number] Drug Allergy Unknown N/A 04/11/2011 Yes NIKOLE Inhibitors [id number] Drug Allergy Mild COUGH 12/02/2017 Yes oxycodone [id number] Drug Allergy Mild DEPRESSION 12/02/2017 Medications Medication [...] 08/17/2018 08/23/2018 Daily&0900 MultiVits (Thera M Plus) (esbkeyvp-hqhl-wmvtuyh) oral tablet Dose(s) 08/17/2018 09/15/2018 Daily&0900 CALCIUM 600MG W VIT D TAB 600 MG (OSCAL/W VIT D) Dose(s) 08/17/2018 08/23/2018 Daily&0900 CARVEDILOL TAB 3.125 MG (COREG) MG 08/17/2018 08/17/2018 ONCE&0800,2000 Problems Date Dx Coded Attending Type Code Diagnosis Diagnosed By 09/12/2014 Ot 278.00 09/12/2014 Ot 401.9 09/12/2014 Ot 424.0 09/12/2014 Ot 429.3 09/12/2014 Ot V72.84 09/30/2014 RENETTA HAZEL, ZAMZAM Bonner Ot 596.51 HYPERTONICITY OF BLADDER 09/30/2014 RENETTA HAZEL, ZAMZAM Bonner Ot 599.82 INTRINSIC (URETHRA) SPHINCTER DEFICIENCY 09/30/2014 RENETTA HAZEL, ZAMZAM Bonner Ot 788.33 INCONTINENCE - MIXED (MALE/FEMALE) 10/03/2014 RENETTA HAZEL, ZAMZAM Bonner Ot 596.51 10/03/2014 RENETTA HAZEL, ZAMZAM Bonner Ot 599.82 10/03/2014 RENETTA HAZEL, ZAMZAM Bonner Ot 788.30 10/03/2014 RENETTA HAZEL, ZAMZAM Bonner Ot V72.63 10/03/2014 RENETTA HAZEL, ZAMZAM Bonner Ot V74.8 01/12/2015 BAIMA, CHARISSA L DISPATCHER TOW TRUCK Ot 272.4 01/12/2015 BAIMA, CHARISSA L DISPATCHER TOW TRUCK Ot 278.00 01/12/2015 BAIMA, CHARISSA L DISPATCHER TOW TRUCK Ot 401.9 01/12/2015 BAIMA, CHARISSA L DISPATCHER TOW TRUCK Ot 786.09 01/12/2015 BAIMA, CHARISSA L DISPATCHER TOW TRUCK Ot 272.4 01/12/2015 BAIMA, CHARISSA L DISPATCHER TOW TRUCK Ot 278.00 01/12/2015 BAIMA, CHARISSA L DISPATCHER TOW TRUCK Ot 401.9 01/12/2015 BAIMA, CHARISSA L DISPATCHER TOW TRUCK Ot 786.09 06/14/2015 BAIMA, CHARISSA L DISPATCHER TOW TRUCK Ot 272.4 06/14/2015 BAIMA, CHARISSA L DISPATCHER TOW TRUCK Ot 278.00 06/14/2015 BAIMA, CHARISSA L DISPATCHER TOW TRUCK Ot 401.9 06/14/2015 BAIMA, CHARISSA L DISPATCHER TOW TRUCK Ot 786.09 02/12/2016 W 278.00 OBESITY, UNSPECIFIED [...] OTHER AND UNSPECIFIED HYPERLIPIDEMIA 03/17/2017 Sergey Brito W 401.9 UNSPECIFIED ESSENTIAL HYPERTENSION 03/17/2017 Sergey Brito E78.5 HYPERLIPIDEMIA, UNSPECIFIED 03/17/2017 Sergey Brito W I10 ESSENTIAL (PRIMARY) HYPERTENSION 03/17/2017 Sergey Brito W 272.4 OTHER AND UNSPECIFIED HYPERLIPIDEMIA 03/17/2017 Sergey Brito W 401.9 UNSPECIFIED ESSENTIAL HYPERTENSION 03/17/2017 Sergey Brito E78.5 HYPERLIPIDEMIA, UNSPECIFIED 03/17/2017 Sergey Brito I10 ESSENTIAL (PRIMARY) HYPERTENSION 03/17/2017 Sergey Brito 272.4 OTHER AND UNSPECIFIED HYPERLIPIDEMIA 03/17/2017 Sergey Brito 401.9 UNSPECIFIED ESSENTIAL HYPERTENSION 03/17/2017 Sergey Brito E78.5 HYPERLIPIDEMIA, UNSPECIFIED 03/17/2017 Sergey Brito W I10 ESSENTIAL (PRIMARY) HYPERTENSION 03/17/2017 Paoni, Sergey W 272.4 OTHER AND UNSPECIFIED HYPERLIPIDEMIA 03/17/2017 Paarie, Sergey W 401.9 UNSPECIFIED ESSENTIAL HYPERTENSION 03/17/2017 PaSergey sargent W E78.5 HYPERLIPIDEMIA, UNSPECIFIED 03/17/2017 Paarie, Sergey W I10 ESSENTIAL (PRIMARY) HYPERTENSION 03/17/2017 Sergey Brito W 272.4 OTHER AND UNSPECIFIED HYPERLIPIDEMIA 03/17/2017 Paarie, Sergey W 401.9 UNSPECIFIED ESSENTIAL HYPERTENSION 03/17/2017 PaSergey sargent W E78.5 HYPERLIPIDEMIA, UNSPECIFIED 03/17/2017 Paarie, Sergey W I10 ESSENTIAL (PRIMARY) HYPERTENSION 06/04/2017 Sergey Brito W 401.0 MALIGNANT ESSENTIAL HYPERTENSION 06/04/2017 Sergey Brito W 585.9 CHRONIC KIDNEY DISEASE, UNSPECIFIED 06/04/2017 PaSergey sargent W 728.87 MUSCLE WEAKNESS (GENERALIZED) 06/04/2017 Sergey Brito W I10 ESSENTIAL (PRIMARY) HYPERTENSION 06/04/2017 Sergey Brito M62.81 MUSCLE WEAKNESS (GENERALIZED) 06/04/2017 Sergey Brito N18.9 CHRONIC KIDNEY DISEASE, UNSPECIFIED 06/04/2017 Sergey Brito V43.65 KNEE JOINT REPLACED BY OTHER MEANS 06/04/2017 Sergey Brito V54.89 06/04/2017 Sergey Brito Z47.89 ENCOUNTER FOR [...] Brito A I10 ESSENTIAL (PRIMARY) HYPERTENSION 10/21/2017 RichardarieSergey 401.9 UNSPECIFIED ESSENTIAL HYPERTENSION 10/21/2017 RichardSergey sargent Ha I10 ESSENTIAL (PRIMARY) HYPERTENSION 12/02/2017 Ot Z01.818 ENCOUNTER FOR OTHER PREPROCEDURAL EXAMIN 12/09/2017 ZAMZAM JACKSON MD, Ot E66.01 MORBID (SEVERE) OBESITY DUE TO EXCESS CA 12/09/2017 ZAMZAM JACKSON MD, Ot E78.00 PURE HYPERCHOLESTEROLEMIA, UNSPECIFIED 12/09/2017 ZAMZAM JACKSON MD, Ot F41.9 ANXIETY DISORDER, UNSPECIFIED 12/09/2017 ZAMZAM JACKSON MD, Ot I10 ESSENTIAL (PRIMARY) HYPERTENSION 12/09/2017 ZAMZAM JACKSON MD, Ot I25.10 ATHSCL HEART DISEASE OF [place] CORONARY 12/09/2017 ZAMZAM JACKSON MD, Ot K21.9 GASTRO-ESOPHAGEAL REFLUX DISEASE WITHOUT 12/09/2017 ZAMZAM JACKSON MD Ot N32.81 OVERACTIVE BLADDER 12/09/2017 ZAMZAM JACKSON MD, Ot N36.42 INTRINSIC SPHINCTER DEFICIENCY (ISD) 12/09/2017 ZAMZAM JACSKON MD, Ot N39.46 MIXED INCONTINENCE 12/09/2017 ZAMZAM JACKSON MD Ot Z68.41 BODY MASS INDEX (BMI) 40.0-44.9, ADULT 12/09/2017 ZAMZAM JACKSON MD, Ot Z79.899 OTHER PACKAGING INSPECTOR (CURRENT) DRUG THERAPY 12/09/2017 ZAMZAM JACKSON MD, Ot Z96.653 PRESENCE OF ARTIFICIAL KNEE JOINT, BILAT 12/10/2017 ZAMZAM JACKSON MD, Ot E66.01 MORBID (SEVERE) OBESITY DUE TO EXCESS CA 12/10/2017 ZAMZAM JACKSON MD, Ot E78.00 PURE HYPERCHOLESTEROLEMIA, UNSPECIFIED 12/10/2017 ZAMZAM JACKSON MD, Ot F41.9 ANXIETY DISORDER, UNSPECIFIED 12/10/2017 ZAMZAM JACKSON MD Ot I10 ESSENTIAL (PRIMARY) HYPERTENSION 12/10/2017 ZAMZAM JACKSON MD, Ot I25.10 ATHSCL HEART DISEASE OF [place] CORONARY 12/10/2017 ZAMZAM JACKSON MD, Ot K21.9 GASTRO-ESOPHAGEAL REFLUX DISEASE WITHOUT 12/10/2017 ZAMZAM JACKSON MD Ot N32.81 OVERACTIVE BLADDER 12/10/2017 ZAMZAM JACKSON MD Ot N36.42 INTRINSIC SPHINCTER DEFICIENCY (ISD) 12/10/2017 ZAMZAM JACKSON MD, Ot N39.46 MIXED INCONTINENCE 12/10/2017 ZAMZAM JACKSON MD Ot Z68.41 BODY MASS INDEX (BMI) 40.0-44.9, ADULT 12/10/2017 ZAMZAM JACKSON MD Ot Z79.899 OTHER INTERMEDIATE (CURRENT) DRUG THERAPY 12/10/2017 ZAMZAM JACKSON MD, Ot Z96.653 PRESENCE OF ARTIFICIAL KNEE JOINT, [...] AND GIDDINESS 08/17/2018 Sergey Brito R51 HEADACHE 09/16/2018 ZAMZMA JACKSON MD Ot 596.51 HYPERTONICITY OF BLADDER 09/16/2018 RENETTA HAZEL, ZAMZAM Bonner Ot 599.82 INTRINSIC (URETHRA) SPHINCTER DEFICIENCY 09/16/2018 RENETTA HAZEL, ZAMZAM Bonner Ot 788.30 UNSPECIFIED URINARY INCONTINENCE 09/16/2018 RENETTA HAZEL, ZAMZAM Bonner Ot V72.63 PRE-PROCEDURAL LABORATORY EXAMINATION 09/16/2018 RENETTA HAZEL, ZAMZAM Bonner Ot V74.8 SCREEN-BACTERIAL DIS NEC 09/16/2018 MEREDITH HAZEL, ALFIE Jarvis Ot 596.51 HYPERTONICITY OF BLADDER 09/16/2018 MEREDITH HAZEL, ALFIE Jarvis Ot 599.82 INTRINSIC (URETHRA) SPHINCTER DEFICIENCY 09/16/2018 MEREDITH HAZEL, ALFIE Jarvis Ot 788.30 UNSPECIFIED URINARY INCONTINENCE 09/16/2018 MEREDITH HAZEL, ALFIE Jarvis Ot V72.84 EXAM PRE-OPERATIVE NOS 09/16/2018 BAIMA, CHARISSA L DISPATCHER TOW TRUCK Ot 272.4 HYPERLIPIDEMIA NEC/NOS 09/16/2018 BAIMA, CHARISSA L DISPATCHER TOW TRUCK Ot 278.00 OBESITY, NOS 09/16/2018 BAIMA, CHARISSA L DISPATCHER TOW TRUCK Ot 401.9 HYPERTENSION NOS 09/16/2018 BAIMA, CHARISSA L DISPATCHER TOW TRUCK Ot 786.09 RESPIRATORY ABNORM NEC 09/16/2018 BAIMA, CHARISSA L DISPATCHER TOW TRUCK Ot 272.4 HYPERLIPIDEMIA NEC/NOS 09/16/2018 BAIMA, CHARISSA L DISPATCHER TOW TRUCK Ot 278.00 OBESITY, NOS 09/16/2018 BAIMA, CHARISSA L DISPATCHER TOW TRUCK Ot 401.9 HYPERTENSION NOS 09/16/2018 BAIMA, CHARISSA L DISPATCHER TOW TRUCK Ot 786.09 RESPIRATORY ABNORM NEC 09/24/2018 IVELISSE HAZEL FACC, ALI FACP CCDS Ot E66.9 OBESITY, UNSPECIFIED 09/24/2018 IVELISSE HAZEL FACC, ALI FACP CCDS Ot E78.5 HYPERLIPIDEMIA, UNSPECIFIED 09/24/2018 IVELISSE HAZEL FACC, ALI FACP CCDS Ot E88.81 METABOLIC SYNDROME 09/24/2018 IVELISSE HAZEL FACC, ALI FACP CCDS Ot I10 ESSENTIAL (PRIMARY) HYPERTENSION 09/24/2018 IVELISSE HAZEL FACC, ALI FACP CCDS Ot R06.09 OTHER FORMS OF DYSPNEA 09/24/2018 IVELISSE HAZEL FACC, ALI FACP CCDS Ot R55 SYNCOPE AND COLLAPSE 09/24/2018 IVELISSE HAZEL FACC, ALI FACP CCDS Ot R73.01 IMPAIRED FASTING GLUCOSE 09/24/[address] [facility], ALI FACP CCDS Ot Z68.41 BODY MASS INDEX (BMI) 40.0-44.9, ADULT 09/24/[address] [facility], ALI FACP CCDS Ot Z79.899 OTHER PACKAGING INSPECTOR (CURRENT) DRUG THERAPY 10/18/[address] [facility], ALI FACP CCDS Ot E66.9 OBESITY, UNSPECIFIED 10/18/[address] [facility], ALI FACP CCDS Ot E78.5 HYPERLIPIDEMIA, UNSPECIFIED 10/18/[address] [facility], ALI FACP CCDS Ot E88.81 METABOLIC SYNDROME 10/18/[address] [facility], ALI FACP CCDS Ot I10 ESSENTIAL (PRIMARY) HYPERTENSION 10/18/[address] [facility], ALI FACP CCDS Ot R06.09 OTHER FORMS OF DYSPNEA 10/18/[address] [facility], ALI FACP CCDS Ot R55 SYNCOPE AND COLLAPSE 10/18/[address] [facility], ALI FACP CCDS Ot R73.01 IMPAIRED FASTING GLUCOSE 10/18/[address] [facility], ALI FACP CCDS Ot Z68.41 BODY MASS INDEX (BMI) 40.0-44.9, ADULT 10/18/[address] [facility], ALI FACP CCDS Ot Z79.899 OTHER INTERMEDIATE (CURRENT) DRUG THERAPY 10/25/2018 ZAMZAM JACKSON MD Ot 596.51 HYPERTONICITY OF BLADDER 10/25/2018 ZAMZAM JACKSON MD Ot 599.82 INTRINSIC (URETHRA) SPHINCTER DEFICIENCY 10/25/2018 ZAMZAM JACKSON MD Ot 788.30 UNSPECIFIED URINARY INCONTINENCE 10/25/2018 ZAMZAM JACKSON MD Ot V72.63 PRE-PROCEDURAL LABORATORY EXAMINATION 10/25/2018 ZAMZAM JACKSON MD Ot V74.8 SCREEN-BACTERIAL DIS NEC 10/25/2018 ALFIE HARPER MD Ot 596.51 HYPERTONICITY OF BLADDER 10/25/2018 ALFIE HARPER MD Ot 599.82 INTRINSIC (URETHRA) SPHINCTER DEFICIENCY 10/25/2018 ALFIE HARPER MD Ot 788.30 UNSPECIFIED URINARY INCONTINENCE 10/25/2018 ALFIE HARPER MD Ot V72.84 EXAM PRE-OPERATIVE NOS 10/25/2018 BAIMA, CHARISSA L DISPATCHER TOW TRUCK Ot 272.4 HYPERLIPIDEMIA NEC/NOS 10/25/2018 BAIMA, CHARISSA L DISPATCHER TOW TRUCK Ot 278.00 OBESITY, NOS 10/25/2018 BAIMA, CHARISSA L DISPATCHER TOW TRUCK Ot 401.9 HYPERTENSION NOS 10/25/2018 BAIMA, CHARISSA L DISPATCHER TOW TRUCK Ot 786.09 RESPIRATORY ABNORM NEC 10/25/2018 BAIMA, CHARISSA L DISPATCHER TOW TRUCK Ot 272.4 HYPERLIPIDEMIA NEC/NOS 10/25/2018 BAIMA, CHARISSA L DISPATCHER TOW TRUCK Ot 278.00 OBESITY, NOS 10/25/2018 BAIMA, CHARISSA L DISPATCHER TOW TRUCK Ot 401.9 HYPERTENSION NOS 10/25/2018 BAIMA, CHARISSA L DISPATCHER TOW TRUCK Ot 786.09 RESPIRATORY ABNORM NEC 10/25/2018 IVELISSE HAZEL FACC, ALI FACP CCDS Ot E66.9 OBESITY, UNSPECIFIED 10/25/2018 IVELISSE HAZEL FACC, ALI FACP CCDS Ot E78.5 HYPERLIPIDEMIA, UNSPECIFIED 10/25/2018 IVELISSE HAZEL FACC, ALI FACP CCDS Ot E88.81 METABOLIC SYNDROME 10/25/2018 IVELISSE HAZEL FACC, ALI FACP CCDS Ot I10 ESSENTIAL (PRIMARY) HYPERTENSION 10/25/2018 IVELISSE HAZEL FACC, ALI FACP CCDS Ot R06.09 OTHER FORMS OF DYSPNEA 10/25/2018 IVELISSE HAZEL FACC, ALI FACP CCDS Ot R55 SYNCOPE AND COLLAPSE 10/25/2018 IVELISSE HAZEL FACC, ALI FACP CCDS Ot R73.01 IMPAIRED FASTING GLUCOSE 10/25/2018 IVELISSE HAZEL FACC, ALI FACP CCDS Ot Z68.41 BODY MASS INDEX (BMI) 40.0-44.9, ADULT 10/25/2018 IVELISSE HAZEL FACC, ALI FACP CCDS Ot Z79.899 OTHER PACKAGING INSPECTOR (CURRENT) DRUG THERAPY Procedures There is no data. Results Test [...] Cholesterol 175 mg/dL 100-240 HDL 54 mg/dL LDL-Calculated 105 mg/dL 0-100 Trig 78 mg/dL [...] Cholesterol 167 mg/dL 100-240 HDL 54 mg/dL - LDL-Calculated 99 mg/dL 0-100 Trig 72 mg/dL [...] Status Pt. Type Provider Facility Loc./Unit Complaint [id number] 08/27/2018 19:07:00 Document Registration [id number] 11/02/2018 21:00:00 11/02/2018 23:59:59 CLS Preadmit ENRIUQE HAZEL, AGUSTIN Bedoya [facility] SLEEP DARWIN G47.33 [id number] 09/16/2018 10:40:00 09/16/2018 23:59:59 CLS Outpatient IVELISSE HAZEL FACC, OMAR WHITE CCDS [facility] CATH SYNCOPE [id number] 12/09/2017 06:00:00 12/09/2017 09:30:00 DIS Outpatient ZAMZAM JACKSON MD [facility] ISD,INCONTINENCE [id number] 01/02/2015 08:20:00 01/02/2015 23:59:59 CLS Outpatient CHARISSA KIM [facility] CARD DYSPNEA,HTN,HLP [id number] 12/29/2014 10:19:00 12/29/2014 23:59:59 CLS Outpatient CHARISSA KIM [facility] CARD DYSPNEA,HTN,HLP [id number] 09/29/2014 10:15:00 09/30/2014 10:45:00 DIS Outpatient ZAMZAM JACKSON MD [facility] INCONTINENCE;INTRINSIC SPHINCTER DEFICIENCY; [id number] 09/27/2014 05:47:00 09/27/2014 23:59:59 CLS Outpatient MEREDITH HAZEL, ALFIE Jarvis [facility] PREOP INCONTINENCE;INTRINSIC SPHINCTER DEFICIENCY [id number] 09/12/2014 11:00:00 09/12/2014 23:59:59 CLS Outpatient RENETTA HAZEL, ZAMZAM Bonner [facility] PREOP INCONTINENCE;INTRINSIC SPHINCTER DEFICIENCY; [id number] 12/02/2017 11:51:00 Document Registration [id number] 09/12/2014 10:59:00 Document Registration [id number] 09/01/2018 07:53:00 09/01/2018 23:59:00 DIS Outpatient Sergey Brito [id number] 08/19/2018 09:21:00 08/19/2018 23:59:00 DIS Outpatient Sergey Brito [id number] 08/16/2018 16:25:00 08/17/2018 14:35:00 DIS Outpatient [facility] MED-SURG [id number] 08/04/2018 09:22:00 08/04/2018 23:59:00 DIS Outpatient Sergey Brito [id number] 01/25/2018 13:39:00 01/25/2018 23:59:00 DIS Outpatient Sergey Brito [id number] 10/21/2017 13:36:00 10/21/2017 23:59:00 DIS Outpatient Sergey Brito [id number] 06/08/2017 10:21:00 09/22/2017 11:40:00 DIS Outpatient DAWNA FOOTE [id number] 08/04/2017 08:26:00 08/04/2017 23:59:00 DIS Outpatient Sergey Brito [id number] 05/11/2017 00:00:00 06/04/2017 13:06:00 DIS Outpatient Sergey Brito [id number] 03/17/2017 08:26:00 03/17/2017 23:59:00 DIS Outpatient Sergey Brito [id number] 02/11/2017 10:14:00 02/11/2017 23:59:00 DIS Outpatient CASTILLO GAONA [id number] 02/02/2017 09:27:00 02/02/2017 23:59:00 DIS Outpatient CASTILLO GAONA [id number] 01/18/2017 00:00:00 01/18/2017 23:59:00 DIS Outpatient CASTILLO GAONA [id number] 01/14/2017 08:24:00 01/14/2017 23:59:00 DIS Outpatient CASTILLO GAONA [id number] 01/14/2017 00:00:00 01/14/2017 23:59:00 DIS Outpatient JIMENEZCASTILLO [id number] 08/21/2016 07:43:00 08/21/2016 23:59:00 DIS Outpatient Omar Hatch [id number] 07/29/2016 09:08:00 07/29/2016 23:59:00 DIS Outpatient Sergey Brito [id number] 07/24/2016 14:31:00 07/24/2016 23:59:00 DIS Outpatient Sergey Brito [id number] 07/10/2016 07:58:00 07/10/2016 23:59:00 DIS Outpatient Omar Hatch [id number] 06/19/2016 07:47:00 06/19/2016 23:59:00 DIS Outpatient Omar Hatch [id number] 01/30/2016 11:51:00 01/30/2016 11:51:00 CAN Outpatient Dion Angeles [id number] 08/16/2018 13:56:12 Document Registration [id number] 02/12/2016 00:00:00 Document Registration
--- NOTE | 2018-11-15 05:00 | NUR ---
DR. SARKAR ARRIVES TO ASSESS PT.
--- NOTE | 2018-11-15 05:04 | Cardiology History & Physical ---
HPI-Cardiology Cardiology Consultation Date of Consultation 11/15/18 Date of Admission Time Seen by Provider: 05:00 Indication: chest pain HPI 62 years old lady with history of hypertension, hyperlipidemia, had history of syncope, started to have chest pain around 11 p.m. last night, came into the emergency room at 335 a.m. had minimal nondiagnostic changes while she is in the ER she developed sudden onset of bradycardia and chest pain, EKG showed ST elevation initial episode was at 410 a.m. responded to nitroglycerin, heart rate improved, continue to have ST elevation. Currently feeling better denied any chest pain or shortness of breath. No palpitation. No syncope or near syncopal episodes. No claudications PMH-Cardiology Immunizations Up To Date Tetanus Booster (DTap): Less than 5yrs Date of Influenza Vaccine: Jan 26, 2017 Seasonal Allergies Seasonal Allergies: No Surgeries No (BILAT TKR, C/S X2, BLADDER MESH, R TKR REVISION, LAP SLEEVE GASTRECTOMY) Hysterectomy, Joint Repacement, Tonsillectomy, Section Respiratory No Cardiovascular Yes High Cholesterol, Hypertension Neurological No Reproductive System Hx Reproductive Disorders: No Sexually Transmitted Disease: No HIV/AIDS: No Menopausal Gastrointestinal Yes Gastroesophageal Reflux Musculoskeletal No Arthritis Endocrine No HEENT Loss of Vision: Bilateral Hearing Impairment: Denies Cancer No Psychosocial Yes Anxiety, Depression Integumentary No Blood Transfusions No Adverse Rxn to Transfusion: No Other PMHx described below Social History Patient Social History Marrital Status: Employed/Student: retired Alcohol Use: Denies Use Recreational Drug Use: No Smoking: Never smoker Recent Foreign Travel: No Contact w/other who traveled: No Recent Infectious Disease Expo: No Family Hx Family History: Alcoholism G8 BROTHER Arthritis 19 FATHER 19 MOTHER G8 BROTHER G8 SISTER Cardiovascular disease G8 BROTHER G8 SISTER Completed stroke G8 BROTHER Diabetes mellitus G8 SISTER Hypertension 19 FATHER G8 BROTHER G8 SISTER Myocardial infarction 19 FATHER G8 BROTHER G8 SISTER No Family History of: AIDS Abdominal aortic aneurysm Alzheimer's disease Asthma Cataracts Colon cancer Dementia Drug abuse Glaucoma Kidney disease Parkinson's disease Prostate cancer Respiratory disorder Seizure disorder Severe allergy Thyroid disease Tuberculosis Visual disorder ROS-Cardiology Review of Systems General: No Chills, No Night Sweats, No Fatigue, No Malaise, No Appetite HEENT: No Head Aches, No Visual Changes, No Eye Pain, No Ear Pain, No Dysphasia, No Sinus Congestion, No Post Nasal Drip, No Sore Throat Pulmonary: No Dyspnea, No Cough, No Pleuritic Chest Pain Cardiovascular: Chest Pain, Other (syncope); No: Palpitations, Orthopnea, Paroxysmal Noc. Dyspnea, Edema, Lt Headedness Gastrointestinal: No: Nausea, Vomiting, Abdominal Pain, Diarrhea, Constipation, Melena, Hematochezia Genitourinary: No Dysuria, No Frequency, No Incontinence, No Hematuria, No Retention Musculoskeletal: No: neck pain, shoulder pain, arm pain, back pain, hand pain, leg pain, foot pain Neurological: No: Weakness, Numbness, Incoordination, Change in speech, Confusion, Seizures Home Medications & Allergies Allergies: Coded Allergies: NIKOLE Inhibitors (Verified Allergy, Mild, COUGH, 12/02/17) oxycodone (Verified Allergy, Mild, DEPRESSION, 12/02/17) Home Medication List Reviewed: Yes Exam-Cardiology Vital Signs Vital Signs Date Time Temp Pulse Resp B/P (MAP) Pulse Ox O2 Delivery O2 Flow Rate FiO2 11/15/18 03:38 96 Room Air 11/15/18 03:36 97.6 59 20 240/125 (163) Exam General Appearance: Alert, Oriented X3, Cooperative, No Acute Distress HEENT: Atraumatic, PERRLA Respiratory: Clear to Auscultation, Normal Air Movement Cardiovascular: Regular Rate, Normal S1, Normal S2, No Murmurs Abdominal: Normal Bowel Sounds, Soft, No Tenderness, No Hepatosplenomegaly, No Masses Extremities: No Clubbing, No Cyanosis, No Edema, Normal Pulses, No Tenderness/Swelling Skin: No Rashes, No Breakdown, No Significant Lesion Neuro: Normal Gait, Normal Speech, Strength at 5/5 X4 Ext, Normal Tone, Sensation Intact Psych/Mental Status: Mental Status NL, Mood NL Results Labs Labs Laboratory Tests 11/15/18 03:48: White Blood Count 7.2, Red Blood Count 4.63, Hemoglobin 13.8, Hematocrit 41, Mean Corpuscular Volume 88, Mean Corpuscular Hemoglobin 30, Mean Corpuscular Hemoglobin Concent 34, Red Cell Distribution Width 13.6, Platelet Count 172, Mean Platelet Volume 10.2, Neutrophils (%) (Auto) 62, Lymphocytes (%) (Auto) 28, Monocytes (%) (Auto) 10, Eosinophils (%) (Auto) 0, Basophils (%) (Auto) 1, Neutrophils # (Auto) 4.4, Lymphocytes # (Auto) 2.0, Monocytes # (Auto) 0.7, Eosinophils # (Auto) 0.0, Basophils # (Auto) 0.0, Prothrombin Time 12.9, INR Comment 0.9, Activated Partial Thromboplast Time 27, Sodium Level 143, Potassium Level 3.1L, Chloride Level 105, Carbon Dioxide Level 25, Anion Gap 13, Blood Urea Nitrogen 21H, Creatinine 1.04, Estimat Glomerular Filtration Rate 53, BUN/Creatinine Ratio 20, Glucose Level 108H, Calcium Level 9.7, Corrected Calcium 9.6, Magnesium Level 2.1, Total Bilirubin 0.6, Aspartate Amino Transf (AST/SGOT) 27, Alanine Aminotransferase (ALT/SGPT) 13, Alkaline Phosphatase 100, Myoglobin 277.8H, Troponin I 1.159*H, B-Type Natriuretic Peptide 209.2H, Total Protein 7.8, Albumin 4.1, Lipase 16 A/P-Cardiology Admission Diagnosis Acute ST elevation IN Coronary artery disease Sinus bradycardia Syncope Admission Status: Inpatient Order (span 2 midnights) Reason for Inpatient Admission: acute myocardial infarction Assessment/Plan Acute ST elevation myocardial infarction occurred while in the emergency room, initial episode of chest pain and EKG changes at 410 a.m. catheter lab team were called to proceed with emergency cardiac catheterization Sinus bradycardia, sinus node dysfunction, intermittent, history of syncope, may require pacemaker. Coronary artery disease, planning to proceed with cardiac catheterization Hypertension, restart home medication monitor blood pressure Hyperlipidemia, monitor lipids Metabolic syndrome, managed by primary care physician, monitor electrolytes Obesity, BMI 41. Educated on weight loss. Clinical Quality Measures AMI/AHF: ASA po Prior to arrival: Yes ([phone] FABIAN SARKAR MD Nov 15, 2018 05:04
--- NOTE | 2018-11-15 05:04 | Cardiac Procedure Note-CS/ASA ---
Pre-Procedure Note Pre-Op Procedure Note H&P Reviewed The H&P was reviewed, patient examined and no changes noted. Date H&P Reviewed: Nov 15, 2018 Time H&P Reviewed: 05:04 Conscious Sedation Pre-Proced Time 05:04 ASA Score 3 For ASA 3 and 4: Consider anesthesia and medical clearance. Also, for patients with a history of failed moderate sedation consider anesthesia. Airway Lungs Heart ASA score ASA 1: a normal healthy patient ASA 2: a patient with a mild systemic disease (mid diabetes, controlled hypertension, obesity x ASA 3: a patient with a severe systemic disease that limits activity (angina, COPD, prior Myocardial infarction) ASA 4: a patient with an incapacitating disease that is a constant threat to life (CHF, renal failure) ASA 5: a moribund patient not expected to survive 24 hrs. (ruptured aneurysm) ASA 6: a declared brain- patient whose organs are being harvested. For emergent operations, add the letter E after the classification Mallampati Classification Grade 3 Sedation Plan Analgesia, Amnesia, Plan communicated to team members, Discussed options with patient/fam, Discussed risks with patient/fam The patient is an appropriate candidate to undergo the planned procedure, sedation, and anesthesia. The patient immediately re-assessed prior to indication. FABIAN SARKAR MD Nov 15, 2018 05:04
[2018-11-15] MEDS ORDERED: EPTIFIBATIDE BOLUS 20 ML IV ONE (05:21)
[2018-11-15] MEDS ORDERED: TICAGRELOR 90 MG TABLET (BRILINTA) PO ONE (05:40)
[2018-11-15] MEDS ORDERED: PATIENT MAY USE OWN MEDS, ALL PO SCH (05:45)
--- NOTE | 2018-11-15 06:02 | Cardiac Cath Report ---
Cardiac Cath Report Physician (s)/Experimental Outboard Motors Mechanic (s) Physician FABIAN SARKAR MD Pre-Procedure Diagnosis Pre-Procedure Diagnosis: acute myocardial infarction Post-Procedure Note Procedure Start Date: Nov 15, 2018 Name of Procedure: left heart catheterization Left ventriculogram Emergency stenting to the right coronary artery Findings/Procedure Note PROCEDURE NOTE: 62-year-old lady with history of syncope, had a loop recorder, started to have chest pain, came into the emergency room had minimal T-wave inversion in the inferior leads, responded to nitroglycerin while she is in the ER she started to have chest pain and bradycardia at 410 a.m., repeat EKG showed ST elevation no onset, T were activated. Pain improved with nitroglycerin and continue to have ST elevation in the inferior leads. After explaining the procedure to the patient, all pros and cons were explained, all questions were answered. The patient signed the consent and then she was placed on the cardiac catheterization laboratory. Groin was prepped SL fashion local anesthesia was used. Sheath placed in the right femoral artery. Ted right and left catheter were used to access the coronary system. Pigtail was used to access the left ventricular cavity. Left ventriculogram was done FR guide was advanced to the right groin system, patient was given 5000 units of heparin and double bolus Integrilin, BMW wire was advanced through the right coronary artery that was subtotally occluded, balloon was advanced using 2.515 mm door to balloon time was 80 minutes, reestablishing flow then I proceeded with carefully placing a stent at the trifurcation of the right coronary artery using Xience 2.515 mm expanded to 2.83 mm with excellent results. Patient has a lesion in the LAD and the circumflex artery, I decided to stage it due to the large amount of contrast used. At the end of the procedure the sheath was removed. Closure device was used FINDINGS: Hemodynamics LV 161/19, end-diastolic pressure of 19 Aorta 162/92 mean of 122 ANATOMY: Left Main is free of obstructive disease Left Anterior Descending is small to moderate in size with moderate severe stenosis at the midportion, distally there is multiple lesions very small segment of the artery Left Circumflex is moderate in size, has severe stenosis proximally followed by aneurysmal dilatation, the first obtuse marginal branch has severe stenosis that is very small artery Right Coronory Artery is a large dominant artery with 40-50 percent stenosis proximally, subtotal occlusion distally at the trifurcation point with occlusion of the right PDA branch, successful emergency balloon angioplasty then deployment of a stent with door to balloon time 80 minutes, the stent was Xience 2.515 mm the plate at the distal right coronary artery ending at the tri furcation expanded to 2.83 mm with excellent results LV Gram was done showing normal left ventricular size with normal contractility is ejection fraction 60 percent CONCLUSION: 1. Acute ST elevation myocardial infarction with door to balloon time 80 minutes. 2. Subtotal occlusion of the right coronary artery with emergency angioplasty and stenting with deployment of Xience 2.515 mm expanded to 2.83 mm at the distal right coronary artery positioned carefully 2 and at the trifurcation distally. 40-50 percent proximal right coronary artery treated medically 3. Moderate to severe stenosis in the proximal circumflex artery followed by aneurysmal dilatation that was staged for later intervention 4. Severe stenosis at the first obtuse marginal branch that is small artery 5. Moderate severe stenosis at the mid LAD, distally there is multiple segment of severe stenosis at the very small portion of the artery. 6. Normal left ventricular size and systolic function estimated ejection fraction 60 percent DISCUSSION AND RECOMMENDATION: I will continue maximizing medical therapy, patient may require to have a pacemaker at a later point. She will need an intervention on the circumflex artery. Reevaluating the LAD that might require also had intervention Anesthesia Type: Conscious Sedation Estimated blood loss (mL): 25 ml Contrast Amount: 140 ml Total Radiation Dose: 1690 mGy Post-Procedure Diagnosis Post-operative diagnosis: Acute ST elevation myocardial infarction Coronary artery disease Sinus bradycardia Hypertension FABIAN SARKAR MD Nov 15, 2018 06:02
--- NOTE | 2018-11-15 06:15 | Diagnostic Imaging Report ---
INDICATION: Chest pain COMPARISON: 07/27/2016. FINDINGS: Single view the chest demonstrate clear lungs bilaterally. The heart size is normal. There is no pneumothorax. Osseous structures are normal. There is a cardiac capsule monitoring device. IMPRESSION: No acute findings. Normal chest. Dictated by: Dictated on workstation # [id number]
[2018-11-15] MEDS: NS IV 1000 ML 1,000 ML IV SCH ×2 (07:12→12:41)
--- OUTSIDE RECORDS SUMMARY | 2018-11-15 07:29 | XMS REPORT | Encounter Summary ---
Author Author [facility] Organization [facility] Address Unknown Phone Unavailable Care Team Providers Care Nanoscience Technician Name Role Phone Richardarie Sergey PCP Encounter Details Care Team Description Date Type Department Nhi Steward MD [address] [facility] Lvl [address] [place] [address] Unspecified urinary incontinence 07/13/2018 [facility] [address] [address] Social History Date Tobacco Use Types Packs/Day [...] Address City/State/Zipcode Phone Number [facility] [address] [place] [address] * URINALYSIS DIPSTICK (07/13/2018 9:00 AM CDT) Color,UA PAPO [facility] Turbidity,UA 2+ (A) CLEAR-CLEAR [facility] Specific 1.032 1.003 - 1.035 [facility] [place]-Urine pH,UA 5.0 5.0 - 8.0 [facility] [...] City/State/Zipcode Phone Number [facility] [address] [place] [address] documented in this encounter Visit Diagnoses Diagnosis Urinary incontinence, unspecified type documented in this encounter
--- OUTSIDE RECORDS SUMMARY | 2018-11-15 07:29 | XMS REPORT | Encounter Summary ---
Author Author [facility] Organization [facility] Address Unknown Phone Unavailable Care Team Providers Care Cut In Station Operator Name Role Phone RichardSergey sargent PCP Encounter Details Care Team Description Date Type Department Nhi Steward MD [address] Ortho[facility] Lvl [address] [place] [address] Urge incontinence (Primary Dx) 07/13/2018 Prep for Case [facility] [address] [place] [address] Social History Date Tobacco Use [...]
--- OUTSIDE RECORDS SUMMARY | 2018-11-15 07:29 | XMS REPORT | Encounter Summary ---
Author Author [facility] Organization [facility] Address Unknown Phone Unavailable Care Team Providers Care Plastic Machine Operator Name Role Phone RichardSergey sargent PCP Reason for Visit * Reason Comments Incontinence Encounter Details Care Team Description Date Type Department Rafi Steward MD [address] Ortho[facility] L[address] [place] [address] Urinary incontinence, unspecified type (Primary Dx); Urge incontinence 07/13/2018 Office Visit [facility] [address] [place] [address] Social History Date Tobacco Use [...] ? Asparagus ? Beets ? Broccoli ? [place] Sprouts ? Cabbage ? Carrots ? Cauliflower ? Celery ? [place] ? Eggplant ? Mushrooms ? Peas ? Potatoes (white potatoes, yams, sweet potatoes) ? Radishes ? Spinach ? Squash ? Turnips ? Zucchini ? [place] peppers ? Pickles ? Sauerkraut ? Tomatoes [...] or any herb infused olive oil ? [place] ? Horseradish ? Ketchup ? Salad Dressings ? Soy sauce ? Vinegar ? [place] Sauce Beverages ? Grain beverages/Coffee substitutes (Cafix, Kerrie, Tess, Postum) ? Water ? Alcohol ? Coffee (caffeinated and decaffeinated) ? Tea (caffeinated and decaffeinated) ? Carbonated drinks (cola, non-cola, diet, and caffeine-free) Other Foods ? Popcorn ? Pretzels ? Chocolate ? food ? Bangladeshi food ? Pizza ? Spicy foods ? [...] amount as noted above. Figure 2 [facility] Pre-Operative Instructions Surgical Procedure: Interstim Stage [...] such as ibuprofen (Advil, Motrin), naproxen (Aleve), Aster-Pacific, Excedrin, Midol, celecoxib (Celebrex), diclofenac ([place] antonio), diflunisal, etodolac, flurbiprofen, indomethacin, ketoprofen, ketorolac, [...] questions, please contact your provider's office at [phone] . For emergencies during evenings, nights, weekends, and holidays, contact [facility] ditching machine operator and request they contact the on-call Urology Resident at [phone]. documented in this encounter Progress Notes * [...] for evaluation referred by Dr. Palmer from [facility] or evaluation of persistent incontinence. History of [...] Specific Question: Supervising Physician Answer: RAFI STEWARD [[id number]] Problem List Items Addressed This Visit Urge [...] FOR IMPLANTATION SACRAL NERVE NEUROSTIMULATOR ELECTRODE ARRAY [63422 (C PT)] N/A Monitored Anesthesia Care (MAC) Panel Information With CPT Code Panel 1 Surgeon Role Rafi Steward MD Primary Procedure Laterality Anesthesia INSERTION/ REPLACEMENT PERIPHERAL/ GASTRIC NEUROSTIMULATOR PULSE GENERATOR/ RECE IVER/ DIRECTOR/ INDUCTIVE COUPLING [17585 (CPT)] N/A Monitored Anesthesia Care (MAC) Other [...] E/M visit, discussed case with Ph ysician Corrections Identification Technician and concur with documentation of history, physical [...] Specimen Urine - Urine Performing Organization Address [facility] Phone Number [facility] [address] [place] [address] * URINALYSIS DIPSTICK (07/13/2018 9:00 AM CDT) Color,UA PAPO [facility] Turbidity,UA 2+ (A) CLEAR-CLEAR [facility] Specific 1.032 1.003 - 1.035 [facility] [place]-Urine pH,UA 5.0 5.0 - 8.0 [facility] [...] Specimen Urine - Urine Performing Organization Address [facility] Phone Number [facility] [address] [place] [address] * POC URINE DIPSTICK MANUAL READ (07/13/2018) Urine Glucose neg IN CLINIC POC Urine Bilirubin neg IN CLINIC POC Urine Ketone neg IN CLINIC POC Urine Specific 1.030 IN CLINIC [place] POC Urine Blood POC trace IN CLINIC [...] FOR IMPLANTATION SACRAL NERVE NEUROSTIMULATOR ELECTRODE ARRAY [78559 (C PT)] N/A Monitored Anesthesia Care (MAC) Panel Information With CPT Code Panel 1 Surgeon Role Rafi Steward MD Primary Procedure Laterality Anesthesia INSERTION/ REPLACEMENT PERIPHERAL/ GASTRIC NEUROSTIMULATOR PULSE GENERATOR/ RECE IVER/ DIRECTOR/ INDUCTIVE COUPLING [13811 (CPT)] N/A Monitored Anesthesia Care (MAC) documented in this encounter
--- OUTSIDE RECORDS SUMMARY | 2018-11-15 07:29 | XMS REPORT | Clinical Summary ---
Author Author [facility] Organization [facility] Address Unknown Phone Unavailable Care Team Providers Care Composing Machine Operator/Tender Name Role Phone Sergey Brito PCP Source Comments Some departments are not documenting in the electronic medical record. If you d o not see the information that you expected, contact Release of Information in [facility] [employer] Information Management department at [phone] for further assistan ce in locating additional records.[facility] Allergies Comments Active Allergy Reactions [...] FOR IMPLANTATION SACRAL NERVE NEUROSTIMULATOR ELECTRODE ARRAY [76612 (CPT)] N/A Monitored Anesthesia Care (MAC) Panel Information With CPT Code Panel 1 Surgeon Role Nhi Steward MD Primary Procedure Laterality Anesthesia INSERTION/ REPLACEMENT PERIPHERAL/ GASTRIC NEUROSTIMULATOR PULSE GENERATOR/ PACKING HOUSE SUPERVISOR/ DIRECTOR/ INDUCTIVE COUPLING [24584 (CPT)] N/A Monitored Anesthesia Care (MAC) Family [...] Dates Group AETNA MEDICAID AETNA xxxxxxxxxxx 2018-P [facility] Advance Directives Patient Propeller Tester Explanation Type Date Recorded Advance Directive/DPOA
--- OUTSIDE RECORDS SUMMARY | 2018-11-15 07:30 | XMS REPORT | Continuity of Care Document ---
Demographics Preferred Language Unknown Marital Status Unknown Muslim Affiliation Unknown Race Unknown Ethnic Group Unknown Author Organization Unknown Address Unknown Phone Unavailable Allergies Active Description Code Type Severity Reaction Onset Reported/Identified Relationship to Patient Clinical Status Yes NIKOLE INHIBITORS NIKOLE INHIBITORS MILD Yes NIKOLE INHIBITORS MILD MILD Yes NIKOLE INHIBITORS MILD SIDE EFFECT Yes OXYCODONE MODERATE MODERATE Yes OXYCODONE MODERATE OTHER Yes NIKOLE Inhibitors [id number] Drug Allergy Unknown N/A 04/11/2011 Yes NIKOLE Inhibitors [id number] Drug Allergy Mild COUGH 12/02/2017 Yes oxycodone [id number] Drug Allergy Mild DEPRESSION 12/02/2017 Medications Medication [...] 08/17/2018 08/23/2018 Daily&0900 MultiVits (Thera M Plus) ([id number]-vdxszcd) oral tablet Dose(s) 08/17/2018 09/15/2018 Daily&0900 CALCIUM [...] Bonner Ot V74.8 01/12/2015 BAIMA, CHARISSA L LAW ENFORCEMENT DIRECTOR Ot 272.4 01/12/2015 BAIMA, CHARISSA L LAW ENFORCEMENT DIRECTOR Ot 278.00 01/12/2015 BAIMA, CHARISSA L LAW ENFORCEMENT DIRECTOR Ot 401.9 01/12/2015 BAIMA, CHARISSA L LAW ENFORCEMENT DIRECTOR Ot 786.09 01/12/2015 BAIMA, CHARISSA L LAW ENFORCEMENT DIRECTOR Ot 272.4 01/12/2015 BAIMA, CHARISSA L LAW ENFORCEMENT DIRECTOR Ot 278.00 01/12/2015 BAIMA, CHARISSA L LAW ENFORCEMENT DIRECTOR Ot 401.9 01/12/2015 BAIMA, CHARISSA L LAW ENFORCEMENT DIRECTOR Ot 786.09 06/14/2015 BAIMA, CHARISSA L LAW ENFORCEMENT DIRECTOR Ot 272.4 06/14/2015 BAIMA, CHARISSA L LAW ENFORCEMENT DIRECTOR Ot 278.00 06/14/2015 BAIMA, CHARISSA L LAW ENFORCEMENT DIRECTOR Ot 401.9 06/14/2015 BAIMA, CHARISSA L LAW ENFORCEMENT DIRECTOR Ot 786.09 02/12/2016 W 278.00 OBESITY, UNSPECIFIED [...] MD, Ot I25.10 ATHSCL HEART DISEASE OF [place] CORONARY 12/09/2017 ZAMZAM JACKSON MD, Ot K21.9 GASTRO-ESOPHAGEAL REFLUX DISEASE WITHOUT 12/09/2017 ZAMZAM JACKSON MD Ot N32.81 OVERACTIVE BLADDER 12/09/2017 ZAMZAM JACKSON MD, Ot N36.42 INTRINSIC SPHINCTER DEFICIENCY (ISD) 12/09/2017 ZAMZAM JACSKON MD, Ot N39.46 MIXED INCONTINENCE 12/09/2017 ZAMZAM JACKSON MD Ot Z68.41 BODY MASS INDEX (BMI) 40.0-44.9, ADULT 12/09/2017 ZAMZAM JACKSON MD, Ot Z79.899 OTHER HAT FORMING MACHINE FEEDER (CURRENT) DRUG THERAPY 12/09/2017 ZAMZAM JACKSON MD, [...] MD, Ot I25.10 ATHSCL HEART DISEASE OF [place] CORONARY 12/10/2017 ZAMZAM JACKSON MD, Ot K21.9 GASTRO-ESOPHAGEAL REFLUX DISEASE WITHOUT 12/10/2017 ZAMZAM JACKSON MD Ot N32.81 OVERACTIVE BLADDER 12/10/2017 ZAMZAM JACKSON MD Ot N36.42 INTRINSIC SPHINCTER DEFICIENCY (ISD) 12/10/2017 ZAMZAM JACKSON MD, Ot N39.46 MIXED INCONTINENCE 12/10/2017 ZAMZAM JACKSON MD Ot Z68.41 BODY MASS INDEX (BMI) 40.0-44.9, ADULT 12/10/2017 ZAMZAM JACKSON MD Ot Z79.899 OTHER CORRECTION (CURRENT) DRUG THERAPY 12/10/2017 ZAMZAM JACKSON MD, [...] GIDDINESS 08/17/2018 Sergey Brito R51 HEADACHE 09/16/2018 ZAMZAM JACKSON MD Ot 596.51 HYPERTONICITY OF [...] EXAM PRE-OPERATIVE NOS 09/16/2018 BAIMA, CHARISSA L LAW ENFORCEMENT DIRECTOR Ot 272.4 HYPERLIPIDEMIA NEC/NOS 09/16/2018 BAIMA, CHARISSA L LAW ENFORCEMENT DIRECTOR Ot 278.00 OBESITY, NOS 09/16/2018 BAIMA, CHARISSA L LAW ENFORCEMENT DIRECTOR Ot 401.9 HYPERTENSION NOS 09/16/2018 BAIMA, CHARISSA L LAW ENFORCEMENT DIRECTOR Ot 786.09 RESPIRATORY ABNORM NEC 09/16/2018 BAIMA, CHARISSA L LAW ENFORCEMENT DIRECTOR Ot 272.4 HYPERLIPIDEMIA NEC/NOS 09/16/2018 BAIMA, CHARISSA L LAW ENFORCEMENT DIRECTOR Ot 278.00 OBESITY, NOS 09/16/2018 BAIMA, CHARISSA L LAW ENFORCEMENT DIRECTOR Ot 401.9 HYPERTENSION NOS 09/16/2018 BAIMA, CHARISSA L LAW ENFORCEMENT DIRECTOR Ot 786.09 RESPIRATORY ABNORM NEC 09/24/2018 IVELISSE [...] R73.01 IMPAIRED FASTING GLUCOSE 09/24/2018 IVELISSE HAZEL [facility], ALI FACP CCDS Ot Z68.41 BODY MASS INDEX (BMI) 40.0-44.9, ADULT 09/24/2018 IVELISSE HAZEL [facility], ALI FACP CCDS Ot Z79.899 OTHER HAT FORMING MACHINE FEEDER (CURRENT) DRUG THERAPY 10/18/2018 IVELISSE HAZEL [facility], ALI FACP CCDS Ot E66.9 OBESITY, UNSPECIFIED 10/18/2018 IVELISSE HAZEL [facility], ALI FACP CCDS Ot E78.5 HYPERLIPIDEMIA, UNSPECIFIED 10/18/2018 IVELISSE MD [facility], ALI FACP CCDS Ot E88.81 METABOLIC SYNDROME 10/18/2018 IVELISSE MD [facility], ALI FACP CCDS Ot I10 ESSENTIAL (PRIMARY) HYPERTENSION 10/18/2018 IVELISSE HAZEL [facility], ALI FACP CCDS Ot R06.09 OTHER FORMS OF DYSPNEA 10/18/2018 IVELISSE HAZEL [facility], ALI FACP CCDS Ot R55 SYNCOPE AND COLLAPSE 10/18/2018 IVELISSE HAZEL [facility], ALI FACP CCDS Ot R73.01 IMPAIRED FASTING GLUCOSE 10/18/2018 IVELISSE HAZEL [facility], ALI FACP CCDS Ot Z68.41 BODY MASS INDEX (BMI) 40.0-44.9, ADULT 10/18/2018 IVELISSE HAZEL [facility], ALI FACP CCDS Ot Z79.899 OTHER CORRECTION (CURRENT) DRUG THERAPY 10/25/2018 ZAMZAM JACKSON MD [...] EXAM PRE-OPERATIVE NOS 10/25/2018 BAIMA, CHARISSA L LAW ENFORCEMENT DIRECTOR Ot 272.4 HYPERLIPIDEMIA NEC/NOS 10/25/2018 BAIMA, CHARISSA L LAW ENFORCEMENT DIRECTOR Ot 278.00 OBESITY, NOS 10/25/2018 BAIMA, CHARISSA L LAW ENFORCEMENT DIRECTOR Ot 401.9 HYPERTENSION NOS 10/25/2018 BAIMA, CHARISSA L LAW ENFORCEMENT DIRECTOR Ot 786.09 RESPIRATORY ABNORM NEC 10/25/2018 BAIMA, CHARISSA L LAW ENFORCEMENT DIRECTOR Ot 272.4 HYPERLIPIDEMIA NEC/NOS 10/25/2018 BAIMA, CHARISSA L LAW ENFORCEMENT DIRECTOR Ot 278.00 OBESITY, NOS 10/25/2018 BAIMA, CHARISSA L LAW ENFORCEMENT DIRECTOR Ot 401.9 HYPERTENSION NOS 10/25/2018 BAIMA, CHARISSA L LAW ENFORCEMENT DIRECTOR Ot 786.09 RESPIRATORY ABNORM NEC 10/25/2018 IVELISSE [...] FACC, ALI FACP CCDS Ot Z79.899 OTHER HAT FORMING MACHINE FEEDER (CURRENT) DRUG THERAPY Procedures There is no [...] Status Pt. Type Provider Facility Loc./Unit Complaint [id number] 08/27/2018 19:07:00 Document Registration [id number] 11/02/2018 21:00:00 11/02/2018 23:59:59 CLS Preadmit ENRIQUE HAZEL, AGUSTIN Bedoya [facility] SLEEP DARWIN G47.33 [id number] 09/16/2018 10:40:00 09/16/2018 23:59:59 CLS Outpatient IVELISSE HAZEL FACC, OMAR WHITE CCDS [facility] CATH SYNCOPE [id number] 12/09/2017 06:00:00 12/09/2017 09:30:00 DIS Outpatient ZAMZAM JACKSON MD [facility] ISD,INCONTINENCE [id number] 01/02/2015 08:20:00 01/02/2015 23:59:59 CLS Outpatient CHARISSA KIM [facility] CARD DYSPNEA,HTN,HLP [id number] 12/29/2014 10:19:00 12/29/2014 23:59:59 CLS Outpatient CHARISSA KIM [facility] CARD DYSPNEA,HTN,HLP [id number] 09/29/2014 10:15:00 09/30/2014 10:45:00 DIS Outpatient ZAMZAM JACKSON MD [facility] INCONTINENCE;INTRINSIC SPHINCTER DEFICIENCY; [id number] 09/27/2014 05:47:00 09/27/2014 23:59:59 CLS Outpatient MEREDITH HAZEL, ALFIE Jarvis [facility] PREOP INCONTINENCE;INTRINSIC SPHINCTER DEFICIENCY [id number] 09/12/2014 11:00:00 09/12/2014 23:59:59 CLS Outpatient RENETTA HAZEL, ZAMZAM Bonner [facility] PREOP INCONTINENCE;INTRINSIC SPHINCTER DEFICIENCY; [id number] 12/02/2017 11:51:00 Document Registration [id number] 09/12/2014 10:59:00 Document Registration [id number] 09/01/2018 07:53:00 09/01/2018 23:59:00 DIS Outpatient Sergey Brito [id number] 08/19/2018 09:21:00 08/19/2018 23:59:00 DIS Outpatient Sergey Brito [id number] 08/16/2018 16:25:00 08/17/2018 14:35:00 DIS Outpatient [facility] MED-SURG [id number] 08/04/2018 09:22:00 08/04/2018 23:59:00 DIS Outpatient Sergey Brito [id number] 01/25/2018 13:39:00 01/25/2018 23:59:00 DIS Outpatient Sergey Brito [id number] 10/21/2017 13:36:00 10/21/2017 23:59:00 DIS Outpatient Sergey Brito [id number] 06/08/2017 10:21:00 09/22/2017 11:40:00 DIS Outpatient DAWNA FOOTE [id number] 08/04/2017 08:26:00 08/04/2017 23:59:00 DIS Outpatient Sergey Brito [id number] 05/11/2017 00:00:00 06/04/2017 13:06:00 DIS Outpatient Sergey Brito [id number] 03/17/2017 08:26:00 03/17/2017 23:59:00 DIS Outpatient Sergey Brito [id number] 02/11/2017 10:14:00 02/11/2017 23:59:00 DIS Outpatient CASTILLO GAONA [id number] 02/02/2017 09:27:00 02/02/2017 23:59:00 DIS Outpatient CASTILLO GAONA [id number] 01/18/2017 00:00:00 01/18/2017 23:59:00 DIS Outpatient CASTILLO GAONA [id number] 01/14/2017 08:24:00 01/14/2017 23:59:00 DIS Outpatient CASTILLO GAONA [id number] 01/14/2017 00:00:00 01/14/2017 23:59:00 DIS Outpatient JIMENEZCASTILLO [id number] 08/21/2016 07:43:00 08/21/2016 23:59:00 DIS Outpatient Omar Hatch [id number] 07/29/2016 09:08:00 07/29/2016 23:59:00 DIS Outpatient Sergey Brito [id number] 07/24/2016 14:31:00 07/24/2016 23:59:00 DIS Outpatient Sergey Brito [id number] 07/10/2016 07:58:00 07/10/2016 23:59:00 DIS Outpatient Omar Hatch [id number] 06/19/2016 07:47:00 06/19/2016 23:59:00 DIS Outpatient Omar Hatch [id number] 01/30/2016 11:51:00 01/30/2016 11:51:00 CAN Outpatient Dion Angeles [id number] 08/16/2018 13:56:12 Document Registration [id number] 02/12/2016 00:00:00 Document Registration
--- NOTE | 2018-11-15 07:54 | Pulmonary Consultation ---
History of Present Illness History of Present Illness Date of Consultation 11/15/18 07:49 Time Seen by Provider: 07:49 Date of Admission Reason for Visit: chest pain History of Present Illness 62yo with hx of HTN, syncope presedted to ED at 0335 secondary to persistent worsening CP that started around 2300. While in the ED pt started having bradycardia along with CP. EKG showed STEMI. CP improved with nitro. Dr. Acharya took pt for emergent heart cath. I am consulted for pulmonary/CC management. Allergies and Home Medications Allergies Coded Allergies: NIKOLE Inhibitors (Verified Allergy, Mild, COUGH, 12/02/17) oxycodone (Verified Allergy, Mild, DEPRESSION, 12/02/17) Home Medications Atorvastatin Calcium 20 Mg Tablet, 20 MG PO DAILY, (Reported) Calcium Citrate/Vitamin D3 1 Each Tablet, PO DAILY, (Reported) Carvedilol 3.125 Mg Tablet, 3.125 MG PO BID, (Reported) Fesoterodine Fumarate 8 Mg Tab.er.24h, 8 MG PO DAILY, (Reported) Furosemide 40 Mg Tablet, 40 MG PO DAILY, (Reported) Losartan Potassium 100 Mg Tablet, 100 MG PO DAILY, (Reported) Mirabegron 25 Mg Tab.er.24h, 25 MG PO DAILY, (Reported) Multivitamin 1 Each Tablet, 1 EACH PO DAILY, (Reported) Nitrofurantoin Monohyd/M-Cryst 100 Mg Capsule, 1 TAB PO BID Prescribed by: CHELSY PERERA on 12/09/17821 Omeprazole 20 Mg Capsule.dr, 20 MG PO BID, (Reported) Phenazopyridine HCl 200 Mg Tablet, 1 TAB PO TID Prescribed by: CHELSY PERERA on 12/09/17821 Potassium Chloride 10 Meq Tab.er.prt, 10 MEQ PO BID, (Reported) Sertraline HCl 50 Mg Tablet, 50 MG PO DAILY, (Reported) Topiramate 50 Mg Tablet, 50 MG PO DAILY, (Reported) Past Bchbggw-Lejlyi-Fepzqu Hx Patient Social History Alcohol Use: Denies Use Recreational Drug Use: No Smoking Status: Never a Smoker Recent Foreign Travel: No Contact w/Someone Who Travel: No Recent Infectious Disease Expo: No Recent Hopitalizations: No Immunizations Up To Date Tetanus Booster (TDap): Less than 5yrs PED Vaccines UTD: Yes Date of Influenza Vaccine: Jan 26, 2017 Seasonal Allergies Seasonal Allergies: No Past Medical History Surgeries: No (BILAT TKR, C/S X2, BLADDER MESH, R TKR REVISION, LAP SLEEVE GASTRECTOMY) Respiratory: No Cardiac: Yes High Cholesterol, Hypertension Neurological: No : No 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 Sexually Transmitted Disease: No HIV/AIDS: No Gastrointestinal: Yes Gastroesophageal Reflux Musculoskeletal: No Arthritis Endocrine: No Loss of Vision: Bilateral Hearing Impairment: Denies Cancer: No Psychosocial: Yes Anxiety, Depression Integumentary: No Blood Disorders: No Adverse Reaction/Blood Tranf: No Family Medical History Alcoholism G8 BROTHER Arthritis 19 FATHER 19 MOTHER G8 BROTHER G8 SISTER Cardiovascular disease G8 BROTHER G8 SISTER Completed stroke G8 BROTHER Diabetes mellitus G8 SISTER Hypertension 19 FATHER G8 BROTHER G8 SISTER Myocardial infarction 19 FATHER G8 BROTHER G8 SISTER No Family History of: AIDS Abdominal aortic aneurysm Alzheimer's disease Asthma Cataracts Colon cancer Dementia Drug abuse Glaucoma Kidney disease Parkinson's disease Prostate cancer Respiratory disorder Seizure disorder Severe allergy Thyroid disease Tuberculosis Visual disorder Review of Systems Time Seen by Provider: 06:37 Constitutional: No: Fever, Chills, Sweats, Weakness, Malaise, Other Eyes: No: Pain, Vision change, Conjunctivae inflammation, Eyelid inflammation, Other, Redness ENT: No: Ear pain, Ear discharge, Nose pain, Nose discharge, Nose congestion, Mouth pain, Mouth swelling, Throat pain, Throat swelling, Other Respiratory: Shortness of breath, SOB with excertion; No: Cough, Dry, Wheezing, Hemoptysis, Pleuritic Pain, Sputum, Wheezing, Other Cardiovascular: No: Chest Pain, Palpitations, Orthopnea, Paroxysmal Noc. Dyspnea, Edema, Lt Headedness, Other Sepsis Event Evaluation Height, Weight, BMI Height: 4'11.00" Weight: 220lbs. 0.0oz. 99.432391cm; 44.4 BMI Method:Stated Exam Exam Vital Signs Date Time Temp Pulse Resp B/P (MAP) Pulse Ox O2 Delivery O2 Flow Rate FiO2 11/15/18 07:00 57 11/15/18 06:45 57 9 131/73 (92) 100 Room Air 11/15/18 06:40 Nasal Cannula 2.00 11/15/18 06:30 55 15 110/68 (82) 100 Room Air 11/15/18 06:24 55 11/15/18 06:17 56 27 108/67 (81) 100 Room Air 11/15/18 05:10 97.6 58 20 215/110 (145) 96 Room Air 11/15/18 03:38 96 Room Air 11/15/18 03:36 97.6 59 20 240/125 (163) 97 Room Air 11/15/18 03:36 Room Air Height & Weight Height: 4'11.00" Weight: 220lbs. 0.0oz. 99.198459kq; 44.4 BMI Method:Stated General Appearance: No Apparent Distress, WD/WN, Anxious HEENT: PERRL/EOMI Neck: Full Range of Motion, Non Tender, Supple Respiratory: Chest Non Tender, Lungs Clear, No Accessory Muscle Use, No Respiratory Distress Cardiovascular: Regular Rate, Rhythm, No Edema Gastrointestinal: normal bowel sounds, non tender, soft Extremity: Normal Capillary Refill, Normal Inspection Neurologic/Psychiatric: Alert, Oriented x3 Skin: Normal Color, Warm/Dry Lymphatic: No Adenopathy Results Lab Laboratory Tests 11/15/18 03:48 Assessment/Plan Assessment/Plan Acute STEMI s/p Cath -Stent placed in RCA Bradycardia with recent syncope Hypokalemia -replace and recheck CAD Obesity with probable DARWIN -Out pt testing SUSAN ARRIETA DO Nov 15, 2018 07:54
[2018-11-15] MEDS: PANTOPRAZOLE 40 MG (PROTONIX) TAB PO SCH (08:26)
[2018-11-15] MEDS: TICAGRELOR 90 MG TABLET (BRILINTA) PO SCH ×2 (08:26→21:05)
[2018-11-15] MEDS: KCL 20 MEQ TAB (K-DUR) PO SCH (08:26)
[2018-11-15] MEDS: LOSARTAN 100 MG (COZAAR) TABLET PO SCH (08:26)
[2018-11-15] MEDS: ASPIRIN E.C. 81 MG (ECOTRIN) TAB PO SCH (08:27)
[2018-11-15] MEDS: FUROSEMIDE 40 MG (LASIX) TAB PO SCH (08:29)
--- NOTE | 2018-11-15 11:00 | NUR ---
Pastoral care visit, pt was tearful and expressed some fear due to her current health issues. I provided listening, encouragement and prayer.
[2018-11-15 11:12] LABS: BASOPHILS % (AUTO) 0 % (0-10); EOSINOPHILS % (AUTO) 0 % (0-10); HEMATOCRIT 36 % (35-52); HEMOGLOBIN 12.2 G/DL (11.5-16.0); LYMPHOCYTES # (AUTO) 1.6 X 10^3 (1.0-4.0); LYMPHOCYTES % (AUTO) 18 % (12-44); MEAN CORPUSCULAR HEMOGLOBIN 30 PG (25-34); MEAN CORPUSCULAR HGB CONC 34 G/DL (32-36); MEAN CORPUSCULAR VOLUME 88 FL (80-99); MEAN PLATELET VOLUME 10.6 FL (7.4-10.4); MONOCYTES # (AUTO) 0.6 X 10^3 (0.0-1.0); MONOCYTES % (AUTO) 7 % (0-12); NEUTROPHILS # (AUTO) 6.8 X 10^3 (1.8-7.8); NEUTROPHILS % (AUTO) 75 % (42-75); PLATELET COUNT 189 10^3/uL (130-400); RED CELL DISTRIBUTION WIDTH 13.7 % (10.0-14.5); WHITE BLOOD COUNT 9.1 10^3/uL (4.3-11.0)
[2018-11-15 11:37] LABS: ALBUMIN 3.6 GM/DL (3.2-4.5); BILIRUBIN,TOTAL 0.6 MG/DL (0.1-1.0); CREATININE SERUM 0.98 MG/DL (0.60-1.30); MAGNESIUM 1.9 MG/DL (1.8-2.4); PHOSPHORUS 3.3 MG/DL (2.3-4.7); POTASSIUM 3.6 MMOL/L (3.6-5.0); TOTAL PROTEIN 6.9 GM/DL (6.4-8.2)
[2018-11-15] MEDS ORDERED: KCL 20 MEQ TAB (K-DUR) PO NR (12:15)
--- NOTE | 2018-11-15 12:15 | NUR ---
DR ARRIETA NOTIFIED OF PT'S REPEAT LABS, NEW ORDERS RECEIVED TO GIVE KCL 40MEQ PO. ORDERS ENTERED.
[2018-11-15] MEDS: ATORVASTATIN 80 MG (LIPITOR) TABLET PO SCH (21:05)
[2018-11-16] VITALS (13 sets, daily range): BP systolic 122–164; BP diastolic 69–104
[2018-11-16 03:19] LABS: HEMOGLOBIN 10.7 G/DL (11.5-16.0); MEAN PLATELET VOLUME 10.3 FL (7.4-10.4); RED CELL DISTRIBUTION WIDTH 13.7 % (10.0-14.5); WHITE BLOOD COUNT 6.7 10^3/uL (4.3-11.0)
[2018-11-16 03:34] LABS: CALCIUM 8.9 MG/DL (8.5-10.1); CREATININE SERUM 1.02 MG/DL (0.60-1.30); MAGNESIUM 1.8 MG/DL (1.8-2.4); PHOSPHORUS 4.2 MG/DL (2.3-4.7); POTASSIUM 3.6 MMOL/L (3.6-5.0)
[2018-11-16] MEDS: NS IV 1000 ML 1,000 ML IV SCH ×2 (03:51→12:25)
[2018-11-16] MEDS ORDERED: POTASSIUM CL 10MEQ/50ML IVPB 100 ML IV ONE (03:54)
[2018-11-16] MEDS ORDERED: NS (IVPB) 250 ML ONE (03:55)
[2018-11-16] MEDS: POTASSIUM CL 10MEQ/50ML IVPB 50 ML IV SCH ×2 (04:08→05:10)
--- NOTE | 2018-11-16 05:57 | Pulmonary Progress Note ---
Subjective Time Seen by a Provider: 06:35 Subjective/Events-last exam No complications noted. Sepsis Event Evaluation Height, Weight, BMI Height: 4'11.00" Weight: 220lbs. 0.0oz. 99.731165ku; 44.4 BMI Method:Stated Exam Exam Vital Signs Date Time Temp Pulse Resp B/P (MAP) Pulse Ox O2 Delivery O2 Flow Rate FiO2 11/16/18 05:00 59 20 146/77 (100) 100 Room Air 11/16/18 04:00 63 20 127/77 (94) 98 Room Air 11/16/18 03:00 61 18 149/71 (97) 100 Room Air 11/16/18 02:00 47 136/70 (92) 100 Room Air 11/16/18 01:00 49 11/16/18 01:00 49 17 122/82 (95) 100 Room Air 11/16/18 00:06 61 16 150/72 (98) 100 Room Air 11/16/18 00:00 100 Nasal Cannula 2.00 11/15/18 23:21 98.3 11/15/18 23:00 48 18 132/75 (94) 100 Room Air 11/15/18 22:00 Nasal Cannula 2.00 11/15/18 22:00 55 25 158/66 (96) 92 Room Air 11/15/18 21:00 70 21 140/94 (109) 83 Room Air 11/15/18 20:30 54 25 167/93 (117) 100 Room Air 11/15/18 20:00 98.0 11/15/18 20:00 53 17 149/106 (120) 100 Room Air 11/15/18 20:00 100 Nasal Cannula 2.00 11/15/18 19:30 56 13 160/94 (116) 99 Room Air 11/15/18 19:00 60 16 143/81 (101) 100 Room Air 11/15/18 19:00 60 11/15/18 18:00 65 10 Room Air 11/15/18 17:00 53 7 158/74 (102) 94 Room Air 11/15/18 16:00 100 Room Air 2.00 11/15/18 16:00 96.5 11/15/18 16:00 50 14 134/67 (89) 100 Room Air 11/15/18 15:00 52 11 136/80 (98) 100 Room Air 11/15/18 14:00 49 11 122/68 (86) 100 Room Air 11/15/18 13:00 59 28 142/66 (91) 100 Room Air 11/15/18 12:47 60 11/15/18 12:00 62 15 123/68 (86) 99 Room Air 11/15/18 12:00 98.1 11/15/18 12:00 100 Room Air 2.00 11/15/18 11:00 66 18 135/116 (122) 100 Room Air 11/15/18 10:00 59 21 129/83 (98) 100 Room Air 11/15/18 09:00 64 11 142/74 (96) 100 Room Air 11/15/18 08:00 46 14 114/98 (103) 100 Room Air 11/15/18 08:00 100 Room Air 2.00 11/15/18 07:00 57 11/15/18 07:00 58 17 138/87 (104) 100 Room Air 11/15/18 06:45 57 9 131/73 (92) 100 Room Air 11/15/18 06:40 Nasal Cannula 2.00 11/15/18 06:30 55 15 110/68 (82) 100 Room Air 11/15/18 06:24 55 11/15/18 06:17 56 27 108/67 (81) 100 Room Air I & O 11/16/18 06:59 Intake Total 1200 ml Output Total 1750 ml Balance -550 ml Height & Weight Height: 4'11.00" Weight: 220lbs. 0.0oz. 99.048602jq; 44.4 BMI Method:Stated General Appearance: No Apparent Distress, WD/WN, Anxious HEENT: PERRL/EOMI, Pharynx Normal, Moist Mucous Membranes Neck: Full Range of Motion, Normal Inspection Respiratory: No Chest Non Tender; Lungs Clear, Normal Breath Sounds, No Accessory Muscle Use, No Respiratory Distress Cardiovascular: Regular Rate, Rhythm, No Edema, Normal Peripheral Pulses Capillary Refill: Less Than 3 Seconds Neurologic/Psychiatric: Alert, Oriented x3 Skin: Normal Color, Warm/Dry Results Lab Laboratory Tests 11/15/18 03:48 11/15/18 10:55 11/16/18 03:10 Assessment/Plan Assessment/Plan Acute STEMI s/p Cath -Stent placed in RCA Bradycardia with recent syncope Hypokalemia -replace and recheck CAD Obesity with probable DARWIN -Out pt testing SUSAN ARRIETA DO Nov 16, 2018 05:57
[2018-11-16] MEDS ORDERED: MAGNESIUM 1 GM/100 ML IVPB 100 ML IV SCH (06:00)
[2018-11-16] MEDS ORDERED: POTASSIUM CL 10MEQ/50ML IVPB 50 ML IV SCH (06:00)
[2018-11-16] MEDS ORDERED: KCL 20 MEQ TAB (K-DUR) PO SCH (06:00)
[2018-11-16] MEDS: KCL 20 MEQ TAB (K-DUR) PO SCH (06:48)
[2018-11-16] MEDS: PANTOPRAZOLE 40 MG (PROTONIX) TAB PO SCH (08:45)
[2018-11-16] MEDS: ASPIRIN E.C. 81 MG (ECOTRIN) TAB PO SCH (08:45)
[2018-11-16] MEDS: LOSARTAN 100 MG (COZAAR) TABLET PO SCH (08:45)
[2018-11-16] MEDS: TICAGRELOR 90 MG TABLET (BRILINTA) PO SCH ×2 (08:45→20:15)
[2018-11-16] MEDS: FUROSEMIDE 40 MG (LASIX) TAB PO SCH (08:45)
--- NOTE | 2018-11-16 09:18 | Cardiology Progress Note ---
Subjective Date Seen by Provider: Nov 16, 2018 Time Seen by Provider: 09:16 Subjective/Events-last exam Patient is laying down in bed, denied any chest pain, feeling well, has significant amount of bruising on her right thigh and groin Review of Systems General: No Chills, No Night Sweats, No Fatigue, No Malaise, No Appetite, No Other HEENT: No Head Aches, No Visual Changes, No Eye Pain, No Ear Pain, No Dysphasia, No Sinus Congestion, No Post Nasal Drip, No Sore Throat, No Other Pulmonary: No Dyspnea, No Cough, No Pleuritic Chest Pain, No Other Cardiovascular: No: Chest Pain, Palpitations, Orthopnea, Paroxysmal Noc. D yspnea, Edema, Lt Headedness, Other Objective-Cardiology Exam Last Set of Vital Signs Vital Signs 11/15/18 11/16/18 11/16/18 23:21 08:00 08:25 Temp 98.3 Pulse 65 Resp 16 B/P (MAP) 128/69 (88) Pulse Ox 100 O2 Delivery Nasal Cannula O2 Flow Rate 2.00 Capillary Refill : Less Than 3 Seconds I&O Intake and Output 11/16/18 00:00 Intake Total 1200 ml Output Total 1650 ml Balance -450 ml Intake Oral 1200 ml Output Urine Total 1650 ml # Voids 2 # Bowel Movements 1 Daily Weight Change No General: Alert, Oriented X3, Cooperative, No Acute Distress HEENT: Atraumatic, PERRLA Neck: Supple, No JVD Lungs: Clear to Auscultation, Normal Air Movement Heart: Regular Rate, Normal S1, Normal S2, No Murmurs Abdomen: Normal Bowel Sounds, Soft, No Tenderness, No Hepatosplenomegaly, No Masses Extremities: No Clubbing, No Cyanosis, No Edema, Normal Pulses, No Tenderness/Swelling Skin: No Rashes, No Breakdown, No Significant Lesion Neuro: Normal Gait, Normal Speech, Strength at 5/5 X4 Ext, Normal Tone, Sensation Intact Psych/Mental Status: Mental Status NL, Mood NL Results Lab Laboratory Tests 11/15/18 10:55 11/16/18 03:10 A/P-Cardiology Admission Diagnosis Acute ST elevation [place] Coronary artery disease Sinus bradycardia Syncope Assessment/Plan Acute ST elevation myocardial infarction, inferior wall, subtotal occlusion of the distal right coronary artery and occlusion of the right PDA, successful balloon angioplasty and stent deployment using 2.515 mm Josselin stent expanded to 2.8 mm with excellent results. Reestablishment of the flow in the right coronary artery and right PDA door to balloon time was 80 minutes. Patient still have lesion in the proximal circumflex artery that need to be addressed, she has significant bruising on her groin and hematoma, I will stage it for later point as an outpatient Sinus bradycardia, sinus node dysfunction, intermittent, history of syncope, may require pacemaker. Hypertension, monitor blood pressure. No changes are recommended Hyperlipidemia, monitor lipids Metabolic syndrome, managed by primary care physician, monitor electrolytes Obesity, BMI 41. Educated on weight loss. Clinical Quality Measures AMI/AHF: ASA po Prior to arrival: Yes (324) DVT/VTE Risk/Contraindication: Risk Factor Score Per Nursin RFS Level Per Nursing on Admit: 4+=Very High FABIAN SARKAR MD Nov 16, 2018 09:18
--- NOTE | 2018-11-16 10:07 | Diagnostic Imaging Report ---
INDICATION: Post catheterization for myocardial infarction. TECHNIQUE: Single view chest at 3:42 AM. CORRELATION STUDY: 11/15/2018. FINDINGS: The heart size and vasculature are generally stable. A loop recorder device remains in place. The lungs are clear with no consolidating infiltrate. There is no significant effusion or pneumothorax. IMPRESSION: Stable chest demonstrating no acute abnormality. Dictated by: Dictated on workstation # [id number]
[2018-11-16] MEDS: ATORVASTATIN 80 MG (LIPITOR) TABLET PO SCH (20:15)
[2018-11-17 00:24] VITALS: BP 139/81
[2018-11-17 03:26] LABS: BASOPHILS % (AUTO) 0 % (0-10); EOSINOPHILS % (AUTO) 0 % (0-10); HEMATOCRIT 33 % (35-52); HEMOGLOBIN 10.7 G/DL (11.5-16.0); LYMPHOCYTES # (AUTO) 1.8 X 10^3 (1.0-4.0); LYMPHOCYTES % (AUTO) 24 % (12-44); MEAN CORPUSCULAR HEMOGLOBIN 30 PG (25-34); MEAN CORPUSCULAR HGB CONC 33 G/DL (32-36); MEAN CORPUSCULAR VOLUME 90 FL (80-99); MEAN PLATELET VOLUME 10.7 FL (7.4-10.4); MONOCYTES # (AUTO) 0.9 X 10^3 (0.0-1.0); MONOCYTES % (AUTO) 12 % (0-12); NEUTROPHILS # (AUTO) 4.7 X 10^3 (1.8-7.8); NEUTROPHILS % (AUTO) 64 % (42-75); PLATELET COUNT 155 10^3/uL (130-400); RED CELL DISTRIBUTION WIDTH 13.9 % (10.0-14.5); WHITE BLOOD COUNT 7.4 10^3/uL (4.3-11.0)
[2018-11-17 03:48] LABS: ALBUMIN 3.4 GM/DL (3.2-4.5); BILIRUBIN,TOTAL 0.6 MG/DL (0.1-1.0); CALCIUM 9.1 MG/DL (8.5-10.1); CREATININE SERUM 1.08 MG/DL (0.60-1.30); MAGNESIUM 1.9 MG/DL (1.8-2.4); PHOSPHORUS 4.3 MG/DL (2.3-4.7); POTASSIUM 3.7 MMOL/L (3.6-5.0); TOTAL PROTEIN 5.8 GM/DL (6.4-8.2)
[2018-11-17 04:22] VITALS: BP 155/93
--- NOTE | 2018-11-17 07:22 | Pulmonary Progress Note ---
Subjective Time Seen by a Provider: 07:21 Subjective/Events-last exam Currently on 2 liter NC. will attempt to wean this off. Sepsis Event Evaluation Height, Weight, BMI Height: 4'." Weight: 216lbs. 6.0oz. 98.044579ss; 44.4 BMI Method:Stated Exam Exam Vital Signs Date Time Temp Pulse Resp B/P (MAP) Pulse Ox O2 Delivery O2 Flow Rate FiO2 11/17/18 04:22 67 155/93 (113) 98 Nasal Cannula 2.00 11/17/18 01:00 76 11/17/18 00:24 69 139/81 (100) 98 Nasal Cannula 2.00 11/17/18 00:10 100 Nasal Cannula 2.00 11/16/18 20:30 100 Nasal Cannula 2.00 11/16/18 19:05 77 18 164/93 (116) 96 Nasal Cannula 2.00 11/16/18 19:00 89 11/16/18 17:49 97.3 70 18 147/96 (113) 96 Room Air 11/16/18 16:02 98 Nasal Cannula 2.00 11/16/18 16:00 98.4 63 16 146/84 (104) 98 Nasal Cannula 2.00 11/16/18 12:31 62 11/16/18 12:26 100 Nasal Cannula 2.00 11/16/18 12:00 98.2 11/16/18 12:00 62 131/73 (92) 92 Nasal Cannula 2.00 11/16/18 08:25 100 Nasal Cannula 2.00 11/16/18 08:00 65 16 128/69 (88) 100 Nasal Cannula 2.00 I & O 11/17/18 07:00 Intake Total 1260 ml Output Total 1950 ml Balance -690 ml Height & Weight Height: 4'." Weight: 216lbs. 6.0oz. 98.004036hk; 44.4 BMI Method:Stated General Appearance: No Apparent Distress, WD/WN, Anxious HEENT: PERRL/EOMI Neck: Full Range of Motion, Non Tender, Supple Respiratory: Chest Non Tender, Lungs Clear, No Accessory Muscle Use, No Respiratory Distress Cardiovascular: Regular Rate, Rhythm, No Edema Capillary Refill: Less Than 3 Seconds Gastrointestinal: normal bowel sounds, non tender, soft Extremity: Normal Capillary Refill, Normal Inspection Neurologic/Psychiatric: Alert, Oriented x3 Skin: Normal Color, Warm/Dry Lymphatic: No Adenopathy Results Lab Laboratory Tests 11/15/18 10:55 11/16/18 03:10 11/17/18 03:10 Assessment/Plan Assessment/Plan Acute STEMI s/p Cath -Stent placed in RCA Bradycardia with recent syncope -Cardiology following CAD Obesity with probable DARWIN -Out pt testing -Pt is already scheduled for out pt PSG SUSAN ARRIETA DO Nov 17, 2018 07:22
[2018-11-17] MEDS ORDERED: TICA90TA PO (07:49)
[2018-11-17] MEDS ORDERED: ASPI-983 PO (07:49)
[2018-11-17] MEDS ORDERED: ATOR80TA76 PO (07:49)
--- NOTE | 2018-11-17 07:50 | Discharge Inst-Post CATH ---
Discharge Inst-CATH/EP Problems Reviewed?: Yes Post Cardiac Cath/EP D/C Inst Follow Up/Plan Appointment with Dr. Hatch's office in one to 2 weeks <b>CARDIAC CATH/EP PROCEDURE DISCHARGE INSTRUCTIONS</b> ACTIVITY * Go Home directly and rest. * Limit activity of the leg (or wrist if it was used) for 7 days including aerobics, swimming, jogging, bicycling, etc. * Restrict stair-climbing for 7 days if possible, if not, climb up with your non-cath leg, then bring together on the same step. * Avoid lifting, pushing, pulling or excessive movement of the affected extremity for 7 days. * Customary sexual activity may be resumed after 2 days-use caution not to use a position that strains or causes pain to the affected extremity. * No driving for 24 hours. * NO SMOKING. * Avoid straining for bowel movements for 7 days. * Gentle walking on level ground is allowed. * Returning to work will depend on the type of procedure and the results. Your doctor will discuss this with you. CALL YOUR DOCTOR FOR ANY OF THE FOLLOWING: *If bleeding from the puncture site occurs- Apply gentle pressure to site with clean cloth and call your doctor or EMS. * If a knot or lump forms under the skin, increases in size, or causes pain. * If bruising appears to be worsening or moving further down your leg instead of disappearing. * Temperature above 101 F. CARE OF YOUR GROIN INCISION; * Bruising or purple discoloration of the skin near the puncture site is common. * You may shower only, no bathtub bathing for 5 days. Be careful to avoid slipping as your leg may feel stiff. * If a closure device was used on your femoral artery, please see the attached guide regarding care of the device and your leg. * Leave dressing on FOR 24 hours. CARE OF YOUR WRIST INCISION; * Bruising or purple discoloration of the skin near the puncture site is common. * You may shower. * DO NOT submerge wrist. * Leave dressing on FOR 24 hours. FABIAN SARKAR MD Nov 17, 2018 07:50
--- NOTE | 2018-11-17 07:51 | Diagnostic Imaging Report ---
INDICATION: Post heart catheterization. MRI. Portable chest shows normal heart size and vascularity. The lungs are clear. There is no effusion or pneumothorax. There is no acute bony abnormality. There is no change from 11/16/2018. IMPRESSION: Stable chest. Dictated by: Dictated on workstation # [id number]
--- NOTE | 2018-11-17 07:55 | Cardiology Discharge Summary ---
Diagnosis/Chief Complaint Date of Admission Nov 15, 2018 at 05:50 Date of Discharge November 17, [address] elevation [place] Coronary artery disease Sinus bradycardia Syncope Discharge Diagnosis Acute ST elevation myocardial infarction Coronary artery disease Hypertension Hyperlipidemia Sinus bradycardia Chief Complaint/HPI Chief Complaint/HPI 62 years old lady with history of hypertension, hyperlipidemia, had history of syncope, started to have chest pain around 11 p.m. last night, came into the emergency room at 335 a.m. had minimal nondiagnostic changes while she is in the ER she developed sudden onset of bradycardia and chest pain, EKG showed ST elevation initial episode was at 410 a.m. responded to nitroglycerin, heart rate improved, continue to have ST elevation. Currently feeling better denied any chest pain or shortness of breath. No palpitation. No syncope or near syncopal episodes. No claudications Discharge Summary Hospital Course Was the Problem List Reviewed?: Yes Hospital Course Acute ST elevation myocardial infarction, inferior wall, subtotal occlusion of the distal right coronary artery and occlusion of the right PDA, successful balloon angioplasty and stent deployment using 2.515 mm Josselin stent expanded to 2.8 mm with excellent results. Reestablishment of the flow in the right coronary artery and right PDA door to balloon time was 80 minutes. Patient still have lesion in the proximal circumflex artery that need to be addressed, she has significant bruising on her groin and hematoma, She will need to have another cath and possible intervention in 2-4 weeks Sinus bradycardia, sinus node dysfunction, intermittent, history of syncope, may require pacemaker. Have a loop recorder Hypertension, continue on current medication and follow-up blood pressure Hyperlipidemia, started on Lipitor 80 mg instead of 10 mg Metabolic syndrome, managed by primary care physician, monitor electrolytes Obesity, BMI 41. Educated on weight loss. I discussed with the patient the management plan, encouraged compliance with medication and explained the importance of taking aspirin and Brilinta. 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 Hatch in one to 2 weeks Labs Laboratory Tests 11/15/18 03:48: Potassium Level 3.1L, Blood Urea Nitrogen 21H, Glucose Level 108H, Myoglobin 277.8H, Troponin I 1.159*H, B-Type Natriuretic Peptide 209.2H 11/15/18 10:55: Blood Urea Nitrogen 19H, Glucose Level 116H, Red Blood Count 4.12L, Mean Platelet Volume 10.6H, Aspartate Amino Transf (AST/SGOT) 38H 11/16/18 03:10: Blood Urea Nitrogen 19H, Troponin I 8.136*H, Red Blood Count 3.62L, Hemoglobin 10.7L, Hematocrit 33L, Chloride Level 109H 11/17/18 03:10: Blood Urea Nitrogen 22H, Glucose Level 140H, Troponin I 5.017*H, Red Blood Count 3.61L, Mean Platelet Volume 10.7H, Hemoglobin 10.7L, Hematocrit 33L, Total Protein 5.8L Procedures None. Discharge Physical Examination Allergies: Coded Allergies: NIKOLE Inhibitors (Verified Allergy, Mild, COUGH, 12/02/17) oxycodone (Verified Allergy, Mild, DEPRESSION, 12/02/17) Vitals & I&Os Vital Signs Date Time Temp Pulse Resp B/P (MAP) Pulse Ox O2 Delivery O2 Flow Rate FiO2 11/17/18 04:22 67 155/93 (113) 98 Nasal Cannula 2.00 11/17/18 04:16 98.0 11/16/18 19:05 18 General Appearance: Alert, Oriented X3, Cooperative, No Acute Distress HEENT: Atraumatic, PERRLA Respiratory: Clear to Auscultation, Normal Air Movement Cardiovascular: Regular Rate, Normal S1, Normal S2, No Murmurs Abdominal: Normal Bowel Sounds, Soft, No Tenderness, No Hepatosplenomegaly, No Masses Extremities: No Clubbing, No Cyanosis, No Edema, Normal Pulses, No Tenderness/Swelling Skin: No Rashes, No Breakdown, No Significant Lesion Neuro: Normal Gait, Normal Speech, Strength at 5/5 X4 Ext, Normal Tone, Sensation Intact, Cranial Nerves 3-12 NL, Reflexes 2+ Psych/Mental Status: Mental Status NL, Mood NL Discharge Home Medications Reviewed and agree with Discharge Medication list on patient's Discharge Instruction sheet Instructions to Patient/Family Please see electronic discharge instructions given to patient. Clinical Quality Measures Admission Status Admission Status: Inpatient Order (span 2 midnights) Reason for Inpatient Admission: acute myocardial infarction AMI/AHF: ASA po Prior to arrival: Yes (324) DVT/VTE Risk/Contraindication: Risk Factor Score Per Nursin RFS Level Per Nursing on Admit: 4+=Very High Stroke: No Anticoagulation Therapy: Bleeding Risk (had a large hematoma on the right groin) FABIAN SARKAR MD Nov 17, 2018 07:55
[2018-11-17] MEDS: FUROSEMIDE 40 MG (LASIX) TAB PO SCH (11:02)
[2018-11-17] MEDS: LOSARTAN 100 MG (COZAAR) TABLET PO SCH (11:02)
[2018-11-17] MEDS: TICAGRELOR 90 MG TABLET (BRILINTA) PO SCH (11:02)
[2018-11-17] MEDS: PANTOPRAZOLE 40 MG (PROTONIX) TAB PO SCH (11:02)
[2018-11-17] MEDS: ASPIRIN E.C. 81 MG (ECOTRIN) TAB PO SCH (11:03)
== END 2018-11-17 11:08 | disposition home or self-care (01) | DRG 247 ==
LOC: EDUNIT# 03:36 → ER 03:37 → CATH 04:54 → ICU 05:50
PROVIDERS: ADMIT Internal Medicine Cardiovascular Disease; ATTEND Internal Medicine Cardiovascular Disease
PROC: 0270346 Dilation of Coronary Artery, One Artery, Bifurcation, with Drug-eluting Intraluminal Device, Percutaneous Approach (ICD-10-PCS; principal; 2018-11-15)
PROC: 4A023N7 Measurement of Cardiac Sampling and Pressure, Left Heart, Percutaneous Approach (ICD-10-PCS; 2018-11-15)
PROC: B2111ZZ Fluoroscopy of Multiple Coronary Arteries using Low Osmolar Contrast (ICD-10-PCS; 2018-11-15)
PROC: B2151ZZ Fluoroscopy of Left Heart using Low Osmolar Contrast (ICD-10-PCS; 2018-11-15)
DX: I21.19 ST elevation (STEMI) myocardial infarction involving other coronary artery of inferior wall (principal); I25.10 Atherosclerotic heart disease of native coronary artery without angina pectoris; I97.630 Postprocedural hematoma of a circulatory system organ or structure following a cardiac catheterization; I49.5 Sick sinus syndrome; R00.1 Bradycardia, unspecified; I25.41 Coronary artery aneurysm; Z68.41 Body mass index [BMI] 40.0-44.9, adult; I10 Essential (primary) hypertension; E78.5 Hyperlipidemia, unspecified; E88.81 Metabolic syndrome and other insulin resistance; E66.9 Obesity, unspecified; K21.9 Gastro-esophageal reflux disease without esophagitis; F41.9 Anxiety disorder, unspecified; F32.9 Major depressive disorder, single episode, unspecified; M19.91 Primary osteoarthritis, unspecified site; E87.6 Hypokalemia; G47.33 Obstructive sleep apnea (adult) (pediatric); Z98.84 Bariatric surgery status; Z96.653 Presence of artificial knee joint, bilateral
CPT/HCPCS: 36415; 71045; 80048; 80053; 80061; 83690; 83735; 83874; 83880; 84100; 84484; 85025; 85027; 85610; 85730; 87081; 93005; 93041; 93306; 93458; 99291

== ENCOUNTER 2018-11-25 20:09 | Outpatient (CLI) | payer MEDICAID, MEDICARE ==
[~2018-11-25 20:09] MED LIST changes: +ASPI-983 PO; +ATOR80TA76 PO; +TICA90TA PO
== END 2018-11-26 06:30 | disposition home or self-care (01) ==
LOC: SLEEP 20:09
PROVIDERS: ATTEND Otolaryngology Otolaryngology/Facial Plastic Surgery
DX: G47.33 Obstructive sleep apnea (adult) (pediatric) (principal)
CPT/HCPCS: 95810

== ENCOUNTER 2018-12-14 07:03 | Day surgery (SDC) | payer MEDICARE, MEDICAID ==
[2018-12-14] VITALS (13 sets, daily range): BP systolic 144–197; BP diastolic 77–109
[~2018-12-14] VITALS: Ht 149.9 cm; Wt 90.7 kg
[~2018-12-14 07:03] MED LIST changes: +HEParin (CATH LAB) 2,000 ML IV ONE; +LIDOCAINE 1% INJ 20 ML 20 ML VIAL ONE; +NS IV 1000 ML 1,000 ML ONE
[2018-12-14] MEDS ORDERED: NS IV 1000 ML 1,000 ML IV SCH ×2 (07:15→09:31)
[2018-12-14 07:36] LABS: HEMOGLOBIN 12.9 G/DL (11.5-16.0); MEAN PLATELET VOLUME 10.4 FL (7.4-10.4); RED CELL DISTRIBUTION WIDTH 14.4 % (10.0-14.5); WHITE BLOOD COUNT 6.3 10^3/uL (4.3-11.0)
[2018-12-14] MEDS ORDERED: LOSA1TAB23 PO (07:41)
[2018-12-14] MEDS ORDERED: ATOR80TA76 PO (07:41)
[2018-12-14] MEDS ORDERED: ASPI-983 PO (07:41)
[2018-12-14] MEDS ORDERED: DOXA2TAB2 PO (07:41)
[2018-12-14] MEDS ORDERED: AMLO10TA4 PO (07:41)
[2018-12-14] MEDS ORDERED: SERT100T8 PO (07:41)
[2018-12-14] MEDS ORDERED: TICA90TA PO (07:41)
[2018-12-14] MEDS ORDERED: MULT1TAB69 PO (07:44)
[2018-12-14] MEDS ORDERED: NAPR220T66 PO (07:46)
[2018-12-14 07:47] LABS: PROTHROMBIN TIME PATIENT 13.5 SEC (12.2-14.7)
[2018-12-14 07:54] LABS: ALANINE AMINOTRANSFERASE 15 U/L (0-55); ALKALINE PHOSPHATASE 131 U/L (40-136); BILIRUBIN,TOTAL 0.9 MG/DL (0.1-1.0); BUN/CREATININE RATIO 14; CALCIUM 9.3 MG/DL (8.5-10.1); CARBON DIOXIDE 24 MMOL/L (21-32); CHLORIDE 108 MMOL/L (98-107); CHOLESTEROL 132 MG/DL (< 200); CREATININE SERUM 0.91 MG/DL (0.60-1.30); GFR ESTIMATED > 60; GLUCOSE 93 MG/DL (70-105); HDL CHOLESTEROL 55 MG/DL (40-60); POTASSIUM 3.5 MMOL/L (3.6-5.0); SODIUM 141 MMOL/L (135-145); TOTAL PROTEIN 7.1 GM/DL (6.4-8.2); TRIGLYCERIDES 77 MG/DL (<150); VLDL CHOLESTEROL 15 MG/DL (5-40)
--- NOTE | 2018-12-14 08:06 | NUR ---
SPOKE WITH PT (SHE BROUGHT IN HER BOTTLES WELL HER MED LIST) TO COMPLETE THE MED REC. FUROSEMIDE: PT'S BOTTLE SAYS TO TAKE DAILY BUT THE PT SAYS SHE ONLY TAKES EVERY OTHER DAY. DOXAZOSIN 2MG: THE PATIENT HAS WRITTEN ON HER MED LIST THAT SHE TAKES 1 HS, BUT ON THE EXTERNAL MED HISTORY IS SAYS TO TAKE BID. PT IS UNSURE HOW SHE TAKES THIS. I INDICATED BID ON THE MED REC, AND LET THE NURSE KNOW (PT WANTED TO DOUBLE CHECK WITH THE DR). OTC MEDS: ALEVE 220M Q 6 H PRN ASPIRIN 81M DAILY MULTIVITAMIN: 1 DAILY CITRACAL: 1 DAILY
[2018-12-14] MEDS ORDERED: MIDAZOLAM 5 MG/5 ML (VERSED) VIAL ONE (08:13)
[2018-12-14] MEDS ORDERED: fentaNYL INJECTION 100 MCG/2 ML AMP ONE (08:14)
[2018-12-14] MEDS ORDERED: NITRO DRIP 25000 MCG/D5W 0 ML IV ONE (08:16)
[2018-12-14] MEDS ORDERED: EPTIFIBATIDE BOLUS 20 ML IV ONE (08:16)
[2018-12-14] MEDS ORDERED: HEParin 1000 UNIT/ML (10ML VIAL) FOR BOLUS ONE (08:16)
[2018-12-14] MEDS ORDERED: NITROGLYCERIN 0.4 MG SL TABS BTL 25'S SL ONE (09:05)
[2018-12-14] MEDS ORDERED: ASPIRIN 81 MG CHEW (CHILDREN'S ASA) ONE (09:05)
[2018-12-14] MEDS ORDERED: meTOprolol 5 MG/5 ML (LOPRESSOR) VIAL ONE (09:07)
--- NOTE | 2018-12-14 09:31 | Cardiac Procedure Note-CS/ASA ---
Pre-Procedure Note Pre-Op Procedure Note H&P Reviewed The H&P was reviewed, patient examined and no changes noted. Date H&P Reviewed: Dec 14, 2018 Time H&P Reviewed: 08:30 Conscious Sedation Pre-Proced Time 08:30 ASA Score 3 For ASA 3 and 4: Consider anesthesia and medical clearance. Also, for patients with a history of failed moderate sedation consider anesthesia. Airway Lungs Heart ASA score ASA 1: a normal healthy patient ASA 2: a patient with a mild systemic disease (mid diabetes, controlled hypertension, obesity ASA 3: a patient with a severe systemic disease that limits activity (angina, COPD, prior Myocardial infarction) ASA 4: a patient with an incapacitating disease that is a constant threat to life (CHF, renal failure) ASA 5: a moribund patient not expected to survive 24 hrs. (ruptured aneurysm) ASA 6: a declared brain- patient whose organs are being harvested. For emergent operations, add the letter E after the classification Mallampati Classification Grade 2 Sedation Plan Analgesia, Amnesia, Plan communicated to team members, Discussed options with patient/fam, Discussed risks with patient/fam The patient is an appropriate candidate to undergo the planned procedure, sedation, and anesthesia. The patient immediately re-assessed prior to indication. COLLEEN OVIEDO MD FACP FAC CCDS Dec 14, 2018 09:31
[2018-12-14] MEDS ORDERED: ACETAMINOPHEN 325 MG TABLET PO PRN (09:45)
[2018-12-14] MEDS ORDERED: FUROSEMIDE 40 MG (LASIX) TAB PO SCH ×2 (09:45)
[2018-12-14] MEDS ORDERED: OMEPRAZOLE 20 MG (PriLOSEC) CAP PO PRN (09:45)
[2018-12-14] MEDS ORDERED: PATIENT MAY USE OWN MEDS, ALL PO SCH (09:45)
--- NOTE | 2018-12-14 10:13 | CARDIAC CATHETERIZATION ---
DATE OF SERVICE: 12/14/2018 CARDIAC CATHETERIZATION REPORT The patient is a 63-year-old lady who is known to have coronary artery disease. In early 11/2018, she underwent stenting of the right coronary artery with a Xience 2.5 x 15 mm stent to the distal right coronary artery. This was following acute ST elevation myocardial infarction. She was noted to have 80% to 90% proximal to mid vessel stenosis of the left circumflex artery. She was also noted to have considerable disease of the left anterior descending artery at that time. She has not had recurrence of the kind of chest pain that she presented with in early 11/2018. She continues to have exertional shortness of breath. Cardiac catheterization was carried out today after having obtained an informed consent. DESCRIPTION OF PROCEDURE: She was brought to the cardiac catheterization laboratory in a fasting state. Right groin was prepared and draped in the usual sterile fashion. Lidocaine 1% was used for local anesthesia. Modified Seldinger technique was used to advance a 5-Kittitian sheath in right femoral artery, 5-Kittitian JL4 catheter was used for left coronary angiography, 5-Kittitian JR4 catheter was used for right coronary angiography, 5-Kittitian pigtail catheter was used for left heart catheterization and left ventricular angiography. PERCUTANEOUS INTERVENTION TO THE LEFT CIRCUMFLEX ARTERY: Following completion of the diagnostic procedure, we carried out percutaneous intervention of the left circumflex, which was exhibiting a stenosis in its proximal portion (approximately 80% to 90%). We exchanged the sheath over a wire for a 6-Kittitian sheath. We gave a double bolus of Integrilin. We gave 6000 units of intravenous heparin. We used 6-Kittitian JL4 guide catheter to engage the left coronary artery. We advanced a BMW wire across the lesion and the tip was placed in the distal vessel. We carried out balloon angioplasty of the stenosis in the proximal left circumflex artery with Emerge 3.0 x 20 mm balloon. This was then removed and we advanced Alpine Xience 3.5 x 18 mm stent. This was carefully positioned to cover the lesion. Stent was deployed at 14 atmospheres. Subsequent angiography revealed 0% residual stenosis at the previous site of up to 80 to 90% stenosis. Flow throughout the vessel was normal. She tolerated the procedure well. Angioplasty equipment was removed. Angiography of the right femoral artery was carried out through the sheath. Mynx was used to achieve hemostasis. She tolerated the procedure well. HEMODYNAMICS: Left ventricular end-diastolic pressure following coronary angiography was 10 mmHg. There was no significant pressure gradient on pullback across the aortic valve. Ascending aortic pressure was 175/85 with a mean of 119 mmHg. LEFT VENTRICULAR ANGIOGRAPHY: Left ventricular angiography was carried out in the right anterior oblique projection. Global left ventricular systolic function appears to be within normal limits. Left ventricular ejection fraction estimated to be approximately 60%. There did not appear to be significant regional wall motion abnormality on this study. CORONARY ANGIOGRAPHY: Proximal coronary calcification is seen involving all coronary vessels. Left main coronary artery does not exhibit significant obstructive disease. Left anterior descending artery has multiple 50% stenoses throughout its course. Left circumflex artery had 80% to 90% proximal stenosis, which was successfully stented with Alpine Xience 3.5 x 18 mm stent, as described above. The mid to distal left circumflex artery has 40% to 50% stenosis that was not intervened on. The right coronary artery is dominant. There is a widely patent stent in its distal portion. The rest of the right coronary artery has multiple 40% to 50% stenosis. CONCLUSIONS: 1. Coronary artery disease Primarily consisting of 80% to 90% proximal stenosis of the left circumflex artery, which was successfully stented with Alpine Xience 3.5 x 18 mm stent. A patent stent is seen in the distal right coronary artery that is known to be Alpine Xience 2.5 x 15 mm placed on 11/15/2018. The rest of the coronary vessels have diffuse moderate disease. 2. Normal left ventricular end-diastolic pressure. 3. Normal global left ventricular systolic function with an ejection fraction of approximately 60%. DISCUSSION AND RECOMMENDATIONS: Dual antiplatelet therapy is being continued. She is being hospitalized for overnight observation. Outpatient followup is advised. Job ID: [id number] DocumentID: [id number] Dictated Date: 12/14/2018 09:27:18 Line Welder Date: 12/14/2018 10:12:15 Dictated By: COLLEEN OVIEDO MD, MA, FACP, FACC, MTDD
[2018-12-14] MEDS ORDERED: NON-FORMULARY MEDICATION 1 EA EA (Naproxen Sodium (Aleve) 220 MG) PO PRN (10:45)
[2018-12-14] MEDS ORDERED: KCL 10 MEQ PO SCH (10:45)
--- NOTE | 2018-12-14 11:28 | NUR ---
PATIENT'S OWN MEDS ID'D AND LABELED PATIENT'S OWN AMLODIPINE, ASA, ATORVASTATIN, FUROSEMIDE, LOSARTAN/HCTZ, OMEPRAZOLE, KCL, SERTRALINE, & BRILINTA - THESE WERE THE ONLY MEDS SENT TO PHARMACY AT THIS TIME
[2018-12-14] MEDS: LOSARTAN PO SCH (12:27)
[2018-12-14] MEDS: HYDROCHLOROTHIAZIDE PO SCH (12:27)
[2018-12-14] MEDS: amLODIPine 10 MG (NORVASC) TAB PO SCH (12:27)
[2018-12-14] MEDS: doxAzosin 2 MG (CARDURA) TAB PO SCH (20:27)
[2018-12-14] MEDS: TICAGRELOR 90 MG TABLET (BRILINTA) PO SCH (20:27)
[2018-12-14] MEDS ORDERED: ATORVASTATIN 80 MG (LIPITOR) TABLET PO SCH (21:00)
[2018-12-15] VITALS: BP 122/73
[2018-12-15 03:30] LABS: HEMOGLOBIN 12.4 G/DL (11.5-16.0); MEAN PLATELET VOLUME 10.8 FL (7.4-10.4); RED CELL DISTRIBUTION WIDTH 14.5 % (10.0-14.5); WHITE BLOOD COUNT 7.7 10^3/uL (4.3-11.0)
[2018-12-15 03:51] LABS: CALCIUM 9.2 MG/DL (8.5-10.1); CREATININE SERUM 1.05 MG/DL (0.60-1.30); POTASSIUM 3.3 MMOL/L (3.6-5.0)
[2018-12-15 04:00] VITALS: BP 135/77
[2018-12-15 07:44] VITALS: BP 160/92
[2018-12-15 08:00] VITALS: BP 160/92
[2018-12-15] MEDS ORDERED: ASPIRIN E.C. 81 MG (ECOTRIN) TAB PO SCH (09:00)
[2018-12-15] MEDS ORDERED: SERTRALINE 100 MG (ZOLOFT) TAB PO SCH (09:00)
[2018-12-15] MEDS ORDERED: CALCIUM CARB + VIT D 600 MG (CALCARB + D) TAB PO SCH (09:00)
[2018-12-15] MEDS ORDERED: ASPIRIN 81 MG CHEW (CHILDREN'S ASA) PO SCH (09:00)
[2018-12-15] MEDS ORDERED: MULTIVIT W/MINERALS TAB (THERAGRAN M) PO SCH (09:00)
--- NOTE | 2018-12-15 09:06 | Progress Note - Cardiology ---
Cardiology SOAP Progress Note Subjective: No chest pain or palp or syncope or groin discomfort Rash on L forearm and on the dorsal surface of the L hand. She state it is since yesterday, has improved somewhat. No discomfort or itching or other symptoms She feels well and wishes to go home Objective: I&O/Vital Signs 12/15/18 12/15/18 12/15/18 12/15/18 00:00 01:00 04:00 04:25 Temp 98.3 Pulse 61 56 64 Resp 12 16 B/P (MAP) 122/73 (89) 135/77 (96) Pulse Ox 93 93 12/15/18 12/15/18 12/15/18 07:00 07:44 07:48 Temp 98.4 Pulse 54 67 Resp 18 B/P (MAP) 160/92 (114) Pulse Ox 93 O2 Delivery Room Air Room Air 12/15/18 00:00 Intake Total 1200 ml Output Total 1600 ml Balance -400 ml Weight (Pounds): 200 Weight (Ounces): 0.0 Weight (Calculated Kilograms): 90.813792 Condition: DP/PT pulses palpable Device Insertion Site: without hematoma Bruising: moderated bruising Constitutional: AAO x 3, well-developed, other Respiratory: No accessory muscle use; lungs clear to percussion, lungs clear to auscultation Cardiovascular: regular rate-rhythm, S1 and S2, systolic murmur (faint JOSHUA at card base) Gastrointestional: No tender; soft; No guarding, No rebound; audible bowel sounds Extremities: other (macular, somewhat punctate rash on the dorsal surface of L forearm and L hand, w/o any tenderness of swelling; radial and ulnar arteries palpable on both sides; normal capillary reflux in both hands; no signs of vascular compromise in either hand; no discoloratin of the palmar aspect of either hand); No clubbing, No cyanosis, No significant edema Neurologic/Psychiatric: alert, oriented x 3, other (moves all limbs equally), power is 5/5 both on sides Skin: rash (see above under Extremities exam); No ulcerations Results/Procedures: Labs Laboratory Tests 12/15/18 02:55: White Blood Count 7.7, Red Blood Count 4.15L, Hemoglobin 12.4, Hematocrit 37, Mean Corpuscular Volume 88, Mean Corpuscular Hemoglobin 30, Mean Corpuscular Hemoglobin Concent 34, Red Cell Distribution Width 14.5, Platelet Count 163, Mean Platelet Volume 10.8H, Sodium Level 141, Potassium Level 3.3L, Chloride Level 104, Carbon Dioxide Level 25, Anion Gap 12, Blood Urea Nitrogen 14, Creatinine 1.05, Estimat Glomerular Filtration Rate 53, BUN/Creatinine Ratio 13, Glucose Level 133H, Calcium Level 9.2 Laboratory Tests 12/14/18 07:25 12/15/18 02:55 A/P: Assessment: CAD. Last cardiac cath of 12/14/18: 80% to 90% proximal stenosis of the left circumflex artery successfully stented with Alpine Xience 3.5 x 18 mm stent. A patent stent is seen in the distal right coronary artery that is known to be Alpine Xience 2.5 x 15 mm placed on 11/15/2018. The rest of the coronary vessels have diffuse moderate disease. Normal left ventricular end-diastolic pressure. Normal global left ventricular systolic function with an ejection fraction of approximately 60%. H/o acute ST elevation myocardial infarction on 11-15-18, treated with stenting of distal RCA Syncope/near-syncope, etiology undetermined, suspect postural hypotension and/or bradycardia. S/p ILR implantation on 09/16/18; no significant arrhythmia since except one 3-second pause on 12/02/18 that was asymptomatic (bradycardia-causing meds d/c'd) Labile hypertension Suspected sleep apnea - awaiting sleep studies with Dr. Chamberlain Metabolic syndrome: Hyperlipemia being treated with statin therapy and followed by her PCP, Obesity with BMI approx 40, Impaired fasting glucose S/p bilat knee replacement surgery Echo of November 16, [address] Acharya showed LVEF 55-65%. Grade 1 diastolic dysfunction. PASP 15 mmHg Rash on the dorsal aspect of L forearm and L hand of undetermined etiology, first seen on 12/14/18, for which f/u is advised with her pcp Hypokalemia during the hospitalization 12/14/18 - 12/15/18 Plan: * Replenish electrolytes * We advised f/u on the the L forearm and hand rash (see description above) with her pcp. She states she will * We had a long and detailed discussion regarding her card cath findings and the interventions undertaken * We stressed compliance with med and close clinical f/u for now * Questions were answered in detail COLLEEN OVIEDO MD FACP FAC CCDS Dec 15, 2018 09:06
[2018-12-15] MEDS ORDERED: MAGNESIUM 1 GM/100 ML IVPB 100 ML IV ONE (09:15)
[2018-12-15] MEDS ORDERED: KCL 20 MEQ TAB (K-DUR) PO ONE (09:15)
[2018-12-15] MEDS ORDERED: ASPI-999 PO (09:23)
[2018-12-15] MEDS ORDERED: POTA-51 PO (09:23)
--- NOTE | 2018-12-15 09:25 | Discharge Inst-Post CATH ---
Discharge Inst-CATH/EP Problems Reviewed?: Yes Post Cardiac Cath/EP D/C Inst Follow Up/Plan F/u with Dr Hatch in 2 weeks. Please have blood work drawn before following up at the office ACTIVITY * Go Home directly and rest. * Limit activity of the leg (or wrist if it was used) for 7 days including aerobics, swimming, jogging, bicycling, etc. * Restrict stair-climbing for 7 days if possible, if not, climb up with your non-cath leg, then bring together on the same step. * Avoid lifting, pushing, pulling or excessive movement of the affected extremity for 7 days. * Customary sexual activity may be resumed after 2 days-use caution not to use a position that strains or causes pain to the affected extremity. * No driving for 24 hours. * NO SMOKING. * Avoid straining for bowel movements for 7 days. * Gentle walking on level ground is allowed. * Returning to work will depend on the type of procedure and the results. Your doctor will discuss this with you. CALL YOUR DOCTOR FOR ANY OF THE FOLLOWING: *If bleeding from the puncture site occurs- Apply gentle pressure to site with clean cloth and call your doctor or EMS. * If a knot or lump forms under the skin, increases in size, or causes pain. * If bruising appears to be worsening or moving further down your leg instead of disappearing. * Temperature above 101 F. CARE OF YOUR GROIN INCISION; * Bruising or purple discoloration of the skin near the puncture site is common. * You may shower only, no bathtub bathing for 5 days. Be careful to avoid slipping as your leg may feel stiff. * If a closure device was used on your femoral artery, please see the attached guide regarding care of the device and your leg. * Leave dressing on FOR 24 hours. CARE OF YOUR WRIST INCISION; * Bruising or purple discoloration of the skin near the puncture site is common. * You may shower. * DO NOT submerge wrist. * Leave dressing on FOR 24 hours. [facility]EN HATCH [facility] Dec 15, 2018 09:25
--- NOTE | 2018-12-15 09:25 | Discharge Inst-Cardiology ---
Discharge Inst-Cardiac Problems Reviewed?: Yes Discharge Medications New Medications: Aspirin (Aspirin) 81 Mg Tab.chew 81 MG PO DAILY for 90 Days, #90 TAB 3 Refills Potassium Chloride (Potassium Chloride) 20 Meq Tablet.er 20 MEQ PO DAILY for 90 Days, #90 TAB 3 Refills Continued Medications: Amlodipine Besylate (Norvasc) 10 Mg Tablet 10 MG PO DAILY, TAB Atorvastatin Calcium (Atorvastatin Calcium) 80 Mg Tablet 80 MG PO HS, TAB Calcium Citrate/Vitamin D3 (Calcium Citrate - Vit D3 Tab) 1 Each Tablet 1 TAB PO DAILY, TAB Doxazosin Mesylate (Doxazosin Mesylate) 2 Mg Tablet 2 MG PO BID Furosemide (Furosemide) 40 Mg Tablet 40 MG PO Q48H, TAB Losartan/Hydrochlorothiazide (Losartan-Hctz 100-25 mg Tab) 1 Each Tablet 1 EACH PO DAILY, TAB Multivitamin (Multivitamins) 1 Each Tablet 1 EACH PO DAILY, TAB Omeprazole (Omeprazole) 20 Mg Capsule.dr 20 MG PO BID PRN for HEARTBURN, CAP Sertraline HCl (Sertraline HCl) 100 Mg Tablet 100 MG PO DAILY, TAB Ticagrelor (Brilinta) 90 Mg Tablet 90 MG PO BID, TAB Discontinued Medications: Aspirin (Aspirin EC) 81 Mg Tablet.dr 81 MG PO DAILY, TAB Naproxen Sodium (Aleve) 220 Mg Tablet 220 MG PO Q6H PRN for PAIN-MILD, TAB Potassium Chloride (Potassium Chloride) 10 Meq Tab.er.prt 20 MEQ PO Q48H Orders-Post D/C & Referrals Pneu Vac Indicated: Yes COLLEEN OVIEDO MD FACP FAC CCDS Dec 15, 2018 09:25
--- NOTE | 2018-12-15 09:37 | Cardiology Discharge Summary ---
Diagnosis/Chief Complaint Date of Admission 12/14/18 Date of Discharge 12/15/18 Final/Discharge Diagnosis CAD. Last cardiac cath of 12/14/18: 80% to 90% proximal stenosis of the left circumflex artery successfully stented with Alpine Xience 3.5 x 18 mm stent. A patent stent is seen in the distal right coronary artery that is known to be Alpine Xience 2.5 x 15 mm placed on 11/15/2018. The rest of the coronary vessels have diffuse moderate disease. Normal left ventricular end-diastolic pressure. Normal global left ventricular systolic function with an ejection fraction of approximately 60%. H/o acute ST elevation myocardial infarction on 11-15-18, treated with stenting of distal RCA Syncope/near-syncope, etiology undetermined, suspect postural hypotension and/or bradycardia. S/p ILR implantation on 09/16/18; no significant arrhythmia since except one 3-second pause on 12/02/18 that was asymptomatic (bradycardia-causing meds d/c'd) Labile hypertension Suspected sleep apnea - awaiting sleep studies with Dr. Chamberlain Metabolic syndrome: Hyperlipemia being treated with statin therapy and followed by her PCP, Obesity with BMI approx 40, Impaired fasting glucose S/p bilat knee replacement surgery Echo of November 16, [address] Acharya showed LVEF 55-65%. Grade 1 diastolic dysfunction. PASP 15 mmHg Rash on the dorsal aspect of L forearm and L hand of undetermined etiology, first seen on 12/14/18, for which f/u is advised with her pcp Hypokalemia during the hospitalization 12/14/18 - 12/15/18 Chief Complaint/HPI Chief Complaint/HPI Please see the progress note of the same date (12/15/18) for hosp course and condition at discharge Discharge Summary Hospital Course Pending Labs Laboratory Tests 12/15/18 02:55: White Blood Count 7.7, Red Blood Count 4.15, Hemoglobin 12.4, Hematocrit 37, Mean Corpuscular Volume 88, Mean Corpuscular Hemoglobin 30, Mean Corpuscular Hemoglobin Concent 34, Red Cell Distribution Width 14.5, Platelet Count 163, Mean Platelet Volume 10.8, Sodium Level 141, Potassium Level 3.3, Chloride Level 104, Carbon Dioxide Level 25, Anion Gap 12, Blood Urea Nitrogen 14, Creatinine 1.05, Estimat Glomerular Filtration Rate 53, BUN/Creatinine Ratio 13, Glucose Level 133, Calcium Level 9.2 Discussion & Recommendations Home Medications Reviewed patient Home Medication Reconciliation performed by pharmacy medication reconciliations two way radio technician and/or nursing. Patients Allergies have been reviewed. Discharge Home Medications: Reviewed and agree with Discharge Medication list on patient's Discharge Instruc tion sheet Instructions to patient/family F/u with Dr Oviedo in 2 weeks. Please have blood work drawn before following up at the office COLLEEN OVIEDO MD FACP FAC CCDS Dec 15, 2018 09:37
[2018-12-15] MEDS: TICAGRELOR 90 MG TABLET (BRILINTA) PO SCH (09:38)
[2018-12-15] MEDS: LOSARTAN PO SCH (09:40)
[2018-12-15] MEDS: HYDROCHLOROTHIAZIDE PO SCH (09:40)
[2018-12-15] MEDS: amLODIPine 10 MG (NORVASC) TAB PO SCH (09:40)
[2018-12-15] MEDS: doxAzosin 2 MG (CARDURA) TAB PO SCH (09:45)
[2018-12-15 10:15] VITALS: BP 160/92
[2018-12-16] MEDS ORDERED: ASPI-999 PO (09:39)
[2018-12-16] MEDS ORDERED: POTA20TA15 PO (09:39)
[2018-12-16] MEDS ORDERED: AMLO10TA7 PO (09:39)
[2018-12-17] MEDS ORDERED: CEFU500T63 PO (13:30)
[2018-12-17] MEDS ORDERED: LOSA100T57 PO (13:30)
[2018-12-17] MEDS ORDERED: POTA10TA PO ×2 (13:30→13:35)
[2018-12-17] MEDS ORDERED: DOXA2TAB PO (13:30)
== END 2018-12-15 10:15 | disposition home or self-care (01) ==
LOC: CATH 07:03 → ICU 09:53 → CATH 12-15 10:15
PROVIDERS: ATTEND Internal Medicine Cardiovascular Disease
DX: I25.10 Atherosclerotic heart disease of native coronary artery without angina pectoris (principal); I21.09 ST elevation (STEMI) myocardial infarction involving other coronary artery of anterior wall; I77.1 Stricture of artery; I10 Essential (primary) hypertension; E66.9 Obesity, unspecified; E78.5 Hyperlipidemia, unspecified; R06.00 Dyspnea, unspecified; E11.9 Type 2 diabetes mellitus without complications; Z95.1 Presence of aortocoronary bypass graft; Z88.4 Allergy status to anesthetic agent; Z88.8 Allergy status to other drugs, medicaments and biological substances; Z79.82 Long term (current) use of aspirin; Z68.41 Body mass index [BMI] 40.0-44.9, adult; Z79.899 Other long term (current) drug therapy; Z82.3 Family history of stroke; Z82.49 Family history of ischemic heart disease and other diseases of the circulatory system
CPT/HCPCS: 36415; 80048; 80053; 80061; 85027; 85610; 85730; 87081; 93005; 93458

== ENCOUNTER 2018-12-15 18:15 | Inpatient (IN) | payer MEDICARE, MEDICAID | END 2018-12-18 11:55 | disposition home or self-care (01) | LOC: ICU 12-17 11:15 → ER 18:15 → 4TH 20:30 | DX: I21.4 Non-ST elevation (NSTEMI) myocardial infarction (principal); R00.1 Bradycardia, unspecified; I95.1 Orthostatic hypotension; I46.9 Cardiac arrest, cause unspecified; I21.A1 Myocardial infarction type 2; Z68.41 Body mass index [BMI] 40.0-44.9, adult; E86.9 Volume depletion, unspecified; Z66 Do not resuscitate; I25.10 Atherosclerotic heart disease of native coronary artery without angina pectoris; I44.0 Atrioventricular block, first degree; I25.2 Old myocardial infarction; I10 Essential (primary) hypertension; R11.2 Nausea with vomiting, unspecified; R19.7 Diarrhea, unspecified; E88.81 Metabolic syndrome and other insulin resistance; E66.9 Obesity, unspecified; G47.30 Sleep apnea, unspecified; E78.00 Pure hypercholesterolemia, unspecified; K21.9 Gastro-esophageal reflux disease without esophagitis; M54.9 Dorsalgia, unspecified; M19.91 Primary osteoarthritis, unspecified site; E87.6 Hypokalemia; R21 Rash and other nonspecific skin eruption; F41.9 Anxiety disorder, unspecified; F32.9 Major depressive disorder, single episode, unspecified; Z95.5 Presence of coronary angioplasty implant and graft; Z96.653 Presence of artificial knee joint, bilateral; Z77.22 Contact with and (suspected) exposure to environmental tobacco smoke (acute) (chronic); Z97.8 Presence of other specified devices ==

== ENCOUNTER → 2021-06-13 | Outpatient (CLI) | payer MEDICARE, MEDICAID ==
[~2021-06-13] MED LIST changes: +AMLO-251 PO; +AMLO10TA4 PO; +ASPI-1238 PO; -ASPI-983 PO; +ASPI-999 PO; +CEFU500T63 PO; +DOXA2TAB PO; +DOXA2TAB2 PO; -HEParin (CATH LAB) 2,000 ML IV ONE; -LIDOCAINE 1% INJ 20 ML 20 ML VIAL ONE; +MULT-567 PO; +NAPR220T66 PO; -NS IV 1000 ML 1,000 ML ONE; -OMEP20CA13 PO; +OMEP20CA18 PO; +POTA-179 PO; +POTA-51 PO; -POTA10TA36 PO; +POTA10TA37 PO; +SERT-413 PO; +SERT-414 PO; -SERT50TA9 PO
== END ==
LOC: CARD 14:00
PROVIDERS: ATTEND Nurse Practitioner Family
DX: I51.7 Cardiomegaly (principal)
CPT/HCPCS: 93306

== ENCOUNTER → 2021-06-14 | Outpatient (CLI) | payer MEDICARE, MEDICAID ==
[~2021-06-14] MED LIST changes: +CATHETER FLUSH 10 ML SYR IVP PRN; +REGADENOSON 0.4 MG/5 ML SYR (LEXISCAN) IV ONE
[2021-06-14 09:23] VITALS: BP 197/75
--- NOTE | 2021-06-16 15:32 | STRESS TEST ---
DATE OF SERVICE: 06/14/2021 RESTING AND POST REGADENOSON TECHNETIUM-99M TETROFOSMIN SPECT CT IMAGING ORDERING PHYSICIAN: Milana Zhang APRN PRIMARY PHYSICIAN: Dr. Brito. CLINICAL DIAGNOSIS: Chest discomfort. Baseline images were carried out after injection of 10.9 mCi of technetium-99m Tetrofosmin. This was followed by 0.4 mg regadenoson and 27.1 mCi of technetium-99m Tetrofosmin for stress imaging. The electrocardiogram showed sinus rhythm at baseline. It did not change significantly with the regadenoson infusion. The patient reported shortness of breath following regadenoson infusion, which resolved in a few minutes. Review of images at rest and following stress does not indicate any significant perfusion defects consistent with myocardial ischemia or infarction. Gated images show normal global left ventricular systolic function with normal regional wall motion. Left ventricular ejection fraction is calculated to be 70 to 72%. CONCLUSIONS: 1. No evidence of any significant myocardial ischemia or infarction on this study. 2. Normal regional wall motion. 3. Normal global left ventricular systolic function with a calculated ejection fraction of 72%. Job ID: [id number] DocumentID: [id number] Dictated Date: 06/16/2021 14:32:24 Sports Attorney Date: 06/16/2021 15:30:39 Dictated By: COLLEEN OVIEDO MD, MA, FACP, FACC,
== END ==
LOC: CARD 08:00
PROVIDERS: ATTEND Nurse Practitioner Family
DX: R07.89 Other chest pain (principal); R06.09 Other forms of dyspnea
CPT/HCPCS: 78452; 93017; A9502

== ENCOUNTER 2022-01-14 10:00 | Day surgery (SDC) | payer OTHER, MEDICAID ==
[2022-01-14] VITALS (10 sets, daily range): BP systolic 108–140; BP diastolic 69–88
[~2022-01-14] VITALS: Ht 149.9 cm; Wt 106.2 kg
[2022-01-14 08:43] LABS: HEMATOCRIT 31 % (35-52); HEMOGLOBIN 9.4 g/dL (11.5-16.0); MEAN CORPUSCULAR HEMOGLOBIN 25 pg (25-34); MEAN CORPUSCULAR HGB CONC 30 g/dL (32-36); MEAN CORPUSCULAR VOLUME 81 fL (80-99); PLATELET COUNT 230 10^3/uL (130-400); WHITE BLOOD COUNT 5.7 10^3/uL (4.3-11.0)
[2022-01-14 09:02] LABS: INR 1.1 (0.8-1.4); PROTHROMBIN TIME PATIENT 14.8 SEC (12.2-14.7)
[2022-01-14 09:12] LABS: ALBUMIN 3.8 GM/DL (3.2-4.5); BILIRUBIN,TOTAL 0.4 MG/DL (0.1-1.0); CALCIUM 9.1 MG/DL (8.5-10.1); CREATININE SERUM 1.49 MG/DL (0.60-1.30); POTASSIUM 4.1 MMOL/L (3.6-5.0); TOTAL PROTEIN 7.2 GM/DL (6.4-8.2)
[~2022-01-14 10:00] MED LIST changes: +APIX5TAB PO; -CATHETER FLUSH 10 ML SYR IVP PRN; +CLN.1T PO; +CYAN-23 PO; +FOLI1TAB33 PO; +HEParin (CATH LAB) 2,000 ML IV ONE; +LIDOCAINE 1% INJ 30 ML (XYLOCAINE) VIAL ONE; +NS IV 1000 ML 1,000 ML IV SCH; +NS IV 1000 ML 1,000 ML ONE; +PANT40TA52 PO; +POTA-177 PO; -POTA10TA37 PO; -REGADENOSON 0.4 MG/5 ML SYR (LEXISCAN) IV ONE
[2022-01-14] MEDS ORDERED: fentaNYL INJ 100 MCG/2 ML AMP ONE (10:19)
[2022-01-14] MEDS ORDERED: MIDAZOLAM 2 MG/2 ML (VERSED) VIAL ONE ×2 (10:20→10:37)
[2022-01-14] MEDS ORDERED: HEParin 1000 UNIT/ML (10ML VIAL) FOR BOLUS ONE (11:17)
[2022-01-14] MEDS ORDERED: ADENOSINE 90 MG/30 ML (ADENOSCAN) VIAL IV ONE (11:18)
--- NOTE | 2022-01-14 11:37 | Cardiac Procedure Note-CS/ASA ---
Pre-Procedure Note Pre-Op Procedure Note Date of Available H&P: Jan 09, 2022 Date H&P Reviewed: Jan 14, 2022 Time H&P Reviewed: 10:30 History & Physical: No changes noted Conscious Sedation Pre-Proced ASA Score 3 For ASA 3 and 4: Consider anesthesia and medical clearance. Also, for patients with a history of failed moderate sedation consider anesthesia. Airway Lungs Heart ASA score ASA 1: a normal healthy patient ASA 2: a patient with a mild systemic disease (mid diabetes, controlled hypertension, obesity ASA 3: a patient with a severe systemic disease that limits activity (angina, COPD, prior Myocardial infarction) ASA 4: a patient with an incapacitating disease that is a constant threat to life (CHF, renal failure) ASA 5: a moribund patient not expected to survive 24 hrs. (ruptured aneurysm) ASA 6: a declared brain- patient whose organs are being harvested. For emergent operations, add the letter E after the classification Mallampati Classification Grade 3 Sedation Plan Analgesia, Amnesia, Plan communicated to team members The patient is an appropriate candidate to undergo the planned procedure, sedation, and anesthesia. The patient immediately re-assessed prior to indication. COLLEEN OVIEDO MD FACP FAC CCDS Jan 14, 2022 11:37
--- NOTE | 2022-01-14 11:40 | Discharge Inst-Cardiology ---
Discharge Inst-Cardiac Discharge Medications Continued Medications: Amlodipine Besylate (Amlodipine Besylate) 10 Mg Tablet 10 MG PO DAILY, TAB Apixaban (Eliquis) 5 Mg Tablet 5 MG PO BID, TAB Atorvastatin Calcium (Atorvastatin Calcium) 80 Mg Tablet 80 MG PO HS, TAB Clonidine HCl (Clonidine HCl) 0.1 Mg Tablet 0.1 MG PO BID, TAB Cyanocobalamin (Vitamin B-12) (Vitamin B-12) 1,000 Mcg Capsule 1000 MCG PO DAILY, CAP Folic Acid (Folic Acid) 1 Mg Tablet 1 MG PO DAILY, TAB Furosemide (Furosemide) 40 Mg Tablet 40 MG PO Q48H, TAB Losartan Potassium (Losartan Potassium) 100 Mg Tablet 100 MG PO DAILY, #30 TAB 5 Refills Multivitamin (Multivitamins) 1 Each Tablet 1 TAB PO DAILY, TAB Omeprazole (Omeprazole) 20 Mg Capsule.dr 20 MG PO BID PRN for HEARTBURN, CAP Pantoprazole Sodium (Pantoprazole Sodium) 40 Mg Tablet.dr 40 MG PO DAILY, TAB Sertraline HCl (Sertraline HCl) 100 Mg Tablet 100 MG PO DAILY, TAB Ticagrelor (Brilinta) 90 Mg Tablet 90 MG PO BID, TAB COLLEEN OVIEDO MD FACP FAC CCDS Jan 14, 2022 11:40
--- NOTE | 2022-01-14 11:42 | Discharge Inst-Post CATH ---
Discharge Inst-CATH/EP Post Cardiac Cath/EP D/C Inst Follow Up/Plan F/u with Dr Hatch in 1 - 2 weeks F/u with family physician for evaluation and treatment of anemia as soon as possible ACTIVITY * Go Home directly and rest. * Limit activity of the leg (or wrist if it was used) for 7 days including aerobics, swimming, jogging, bicycling, etc. * Restrict stair-climbing for 7 days if possible, if not, climb up with your non-cath leg, then bring together on the same step. * Avoid lifting, pushing, pulling or excessive movement of the affected extremity for 7 days. * Customary sexual activity may be resumed after 2 days-use caution not to use a position that strains or causes pain to the affected extremity. * No driving for 24 hours. * NO SMOKING. * Avoid straining for bowel movements for 7 days. * Gentle walking on level ground is allowed. * Returning to work will depend on the type of procedure and the results. Your doctor will discuss this with you. CALL YOUR DOCTOR FOR ANY OF THE FOLLOWING: *If bleeding from the puncture site occurs- Apply gentle pressure to site with clean cloth and call your doctor or EMS. * If a knot or lump forms under the skin, increases in size, or causes pain. * If bruising appears to be worsening or moving further down your leg instead of disappearing. * Temperature above 101 F. CARE OF YOUR GROIN INCISION; * Bruising or purple discoloration of the skin near the puncture site is common. * You may shower only, no bathtub bathing for 5 days. Be careful to avoid slipping as your leg may feel stiff. * If a closure device was used on your femoral artery, please see the attached guide regarding care of the device and your leg. * Leave dressing on FOR 24 hours. CARE OF YOUR WRIST INCISION; * Bruising or purple discoloration of the skin near the puncture site is common. * You may shower. * DO NOT submerge wrist. * Leave dressing on FOR 24 hours. [address]LEEN HATCH MD [facility] CCDS Jan 14, 2022 11:42
[2022-01-14] MEDS ORDERED: PATIENT MAY USE OWN MEDS, ALL PO SCH (11:45)
[2022-01-14] MEDS ORDERED: NS IV 1000 ML 1,000 ML IV SCH (11:45)
--- NOTE | 2022-01-14 14:55 | CARDIAC CATHETERIZATION ---
DATE OF SERVICE: 01/14/2022 CARDIAC CATHETERIZATION REPORT The patient is a 66-year-old lady who is known to have coronary artery disease. She has lately been experiencing nonspecific symptoms of fatigue and shortness of breath and has been concerned that there may be cardiac origin. She has continuing risk factors. Given these data, we proceeded with cardiac catheterization for further evaluation. Informed consent was obtained. Vigorous perioperative hydration was carried out because of the patient's chronic kidney disease. DESCRIPTION OF PROCEDURE: She was brought to the cardiac catheterization laboratory. Right groin was prepared and draped in the usual sterile fashion. Lidocaine 1% was used for local anesthesia. Modified Seldinger technique was used to advance a 5-Bruneian sheath in right femoral artery, 5-Bruneian JL4 catheter for left coronary angiography, 5-Bruneian JR4 catheter for right coronary angiography, 5-Bruneian pigtail catheter was used for left heart catheterization. Left ventricular angiography was not performed. This was to conserve contrast because of the patient's chronic kidney disease. FRACTIONAL FLOW RESERVE MEASUREMENT IN THE LEFT ANTERIOR DESCENDING: We then proceeded with fractional flow reserve measurement in the left anterior descending, which has multiple 50% stenosis. We evaluated the stenosis in the mid portion of the left anterior descending. We exchanged the sheath over a wire for a 6-Bruneian sheath. We used a 6-Bruneian JL4 guide catheter. We advanced a pressure wire across the lesions and the tip of the wire was placed in the distal vessel. We gave 140 mcg per kilogram per minute infusion of adenosine over 2-1/2 minutes. Fractional flow reserve across the mid vessel lesions in the left anterior descending was 0.82, indicating that they were hemodynamically nonsignificant. We removed the wire. Repeat angiography confirmed that there were no complications from the fractional flow reserve measurement procedure. The guide catheter was removed. Mynx was used to achieve hemostasis following sheath removal. Angiography of the right femoral artery had been carried out prior to Mynx deployment. Overall, she tolerated the procedure well. HEMODYNAMICS: Left ventricular end-diastolic pressure following coronary angiography was 16 mmHg. There is no significant pressure gradient on pullback across the aortic valve. Ascending aortic pressure was 130/65 with a mean of 91 mmHg. CORONARY ANGIOGRAPHY: Coronary calcification is seen. Left main coronary artery does not exhibit significant obstructive disease. Left anterior descending artery has diffuse moderate plaque. There are multiple stenoses of up to approximately 50%. Fractional flow reserve across the mid vessel lesions is 0.82, indicating that they are hemodynamically nonsignificant. The left circumflex artery exhibits a widely patent stent in its proximal portion. This is known to be Alpine Xience 2.5 x 15 mm that was placed in 2019. The right coronary artery is dominant and has a widely patent stent in its distal portion that is known to be Alpine Xience 3.5 x 18 mm that was placed in 2019. The rest of the right coronary artery has multiple stenoses of up to approximately 50%. CONCLUSIONS: 1. Moderate coronary artery disease as detailed above. This consists of multiple 50% stenoses in the left anterior descending and the right coronary arteries. There is diffuse moderate plaque involving all coronary vessels. There is a patent stent in the proximal left circumflex (Alpine Xience 2.5 x 15 mm placed in 2019) and in the distal right coronary (Alpine Xience 3.5 x 18 placed in 2019). 2. Mild elevation of left ventricular end-diastolic pressure (16 mmHg). DISCUSSION AND RECOMMENDATIONS: Based on results of the study, it appears appropriate to continue a conservative approach. Risk factor modification has been reviewed. Current regimen is being continued. She is noted to be anemic and has been advised to follow up with family physician as soon as possible for evaluation and treatment of her moderate anemia. Job ID: [id number] DocumentID: [id number] Dictated Date: 01/14/2022 11:54:27 Media Marketing Specialist Date: 01/14/2022 14:54:51 Dictated By: COLLEEN OVIEDO MD, MA, FACP, FACC, MTDD
== END 2022-01-14 16:05 | disposition home or self-care (01) ==
LOC: CATH 10:00 → SDC 12:04 → CATH 16:05
PROVIDERS: ATTEND Internal Medicine Cardiovascular Disease
DX: I25.10 Atherosclerotic heart disease of native coronary artery without angina pectoris (principal); E66.9 Obesity, unspecified; Z68.42 Body mass index [BMI] 45.0-49.9, adult; I49.5 Sick sinus syndrome; I65.23 Occlusion and stenosis of bilateral carotid arteries; I11.0 Hypertensive heart disease with heart failure; I50.9 Heart failure, unspecified; E78.2 Mixed hyperlipidemia; Z95.0 Presence of cardiac pacemaker; I48.0 Paroxysmal atrial fibrillation; D64.9 Anemia, unspecified
CPT/HCPCS: 80053; 80061; 85027; 85610; 85730; 87081; 93005; 93458; 93571; C1760; C1769; C1887; C1894 ×2; 36415

== ENCOUNTER 2022-12-08 11:57 | Emergency (ER) | payer MEDICARE, MEDICAID ==
[~2022-12-08 11:57] MED LIST changes: -DOXA2TAB PO; +DOXA2TAB92 PO; -HEParin (CATH LAB) 2,000 ML IV ONE; -LIDOCAINE 1% INJ 30 ML (XYLOCAINE) VIAL ONE; -LOSA100T57 PO; +LOSA100T58 PO; -NS IV 1000 ML 1,000 ML IV SCH; -NS IV 1000 ML 1,000 ML ONE; +POTA-185 PO; +POTA-330 PO; -POTA-51 PO
--- NOTE | 2022-12-08 12:35 | ED Integumentary General ---
General Chief Complaint: Skin/Wound Problems Stated Complaint: SKIN CONCERNS ON PACEMAKER SCAR Nursing Triage Note: PT AMB TO FT WITH WALKER WITH C/O POSS BUG BITE OVER PACEMAKER SITE. PT NOTICED REDDNESS AND ITCHING THURSDAY. PT DENIES ITCHING OR PAIN AT THIS TIME Source: patient Exam Limitations: no limitations History of Present Illness Date Seen by Provider: Dec 08, 2022 Time Seen by Provider: 12:14 Initial Comments 67-year-old female presents the ER with reports of redness and itching over her pacemaker since 12/05/22. She reports that she put hand dye maker over it, which is what she usually does for mosquito bites. Reports that this improves the itching. States it has not been itching since then. Denies any fevers. Denies any pain at the site. Allergies and Home Medications Allergies Coded Allergies: NIKOLE Inhibitors (Verified Allergy, Mild, COUGH, 12/02/17) oxycodone (Verified Allergy, Mild, DEPRESSION, 12/02/17) Patient Home Medication List Home Medication List Reviewed: Yes Amlodipine Besylate (Amlodipine Besylate) 10 Mg Tablet, 10 MG PO DAILY, (Repor henri) Entered as Reported by: SERGIO ESCAMILLA on 12/16/18 0939 Apixaban (Eliquis) 5 Mg Tablet, 5 MG PO BID, (Reported) Entered as Reported by: PORSHA LAZO on 01/14/22901 Atorvastatin Calcium (Atorvastatin Calcium) 80 Mg Tablet, 80 MG PO HS, (Reported) Entered as Reported by: TIERRA MONTERROSO on 12/14/18 0741 Clonidine HCl (Clonidine HCl) 0.1 Mg Tablet, 0.1 MG PO BID, (Reported) Entered as Reported by: PORSHA LAZO on 01/14/22901 Cyanocobalamin (Vitamin B-12) (Vitamin B-12) 1,000 Mcg Capsule, 1,000 MCG PO DAILY, (Reported) Entered as Reported by: PORSHA LAZO on 01/14/22901 Folic Acid (Folic Acid) 1 Mg Tablet, 1 MG PO DAILY, (Reported) Entered as Reported by: PORSHA LAZO on 01/14/22901 Furosemide (Furosemide) 40 Mg Tablet, 40 MG PO Q48H, (Reported) Entered as Reported by: GERDA MIKE on 12/02/17 1206 Losartan Potassium (Losartan Potassium) 100 Mg Tablet, 100 MG PO DAILY Prescribed by: CHARISSA KIM on 12/17/18 1330 Multivitamin (Multivitamins) 1 Each Tablet, 1 TAB PO DAILY, (Reported) Entered as Reported by: TIERRA MONTERROSO on 12/14/18 0744 Omeprazole (Omeprazole) 20 Mg Capsule.dr, 20 MG PO BID PRN for HEARTBURN, (Reported) Entered as Reported by: GERDA MIKE on 12/02/17 1206 Pantoprazole Sodium (Pantoprazole Sodium) 40 Mg Tablet.dr, 40 MG PO DAILY, (Reported) Entered as Reported by: PORSHA LAZO on 01/14/22 0902 Sertraline HCl (Sertraline HCl) 100 Mg Tablet, 100 MG PO DAILY, (Reported) Entered as Reported by: TIERRA MONTERROSO on 12/14/18 0741 Ticagrelor (Brilinta) 90 Mg Tablet, 90 MG PO BID, (Reported) Entered as Reported by: TIERRA MONTERROSO on 12/14/18 0741 Review of Systems Review of Systems Constitutional: see HPI Past [id number] Hx Patient Social History Tobacco Use?: No Use of E-Cig and/or Vaping dev: No Substance use?: No Alcohol Use?: No Pt feels they are or have been: No Immunizations Up To Date Tetanus Booster (TDap): Less than 5yrs PED Vaccines UTD: Yes Seasonal Allergies Seasonal Allergies: No Past Medical History Surgery/Hospitalization HX: PACER, STENTS HTN, COPD, GERD, DEPRESSION Surgeries: No (BILAT TKR, C/S X2, BLADDER MESH, R TKR REVISION, LAP SLEEVE GASTRECTOMY) Section, Hysterectomy, Joint Replacement, Orthopedic, Tonsillectomy Respiratory: No Currently Using CPAP: No Currently Using BIPAP: No Cardiac: Yes Atrial Fibrillation, Coronary Artery Disease, Heart Attack, High Cholesterol, Hypertension Neurological: No 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 Sexually Transmitted Disease: No HIV/AIDS: No Genitourinary: No Gastrointestinal: Yes Gastroesophageal Reflux, Diverticulosis, Polyps Musculoskeletal: No Arthritis Endocrine: No Loss of Vision: Bilateral Hearing Impairment: Denies Cancer: No Psychosocial: Yes Anxiety, Depression Integumentary: No Blood Disorders: No Adverse Reaction/Blood Tranf: No Family Medical History Alcoholism G8 BROTHER Arthritis 19 FATHER 19 MOTHER G8 BROTHER G8 SISTER Cardiovascular disease G8 BROTHER G8 SISTER Completed stroke G8 BROTHER Diabetes mellitus G8 SISTER Hypertension 19 FATHER G8 BROTHER G8 SISTER Myocardial infarction 19 FATHER G8 BROTHER G8 SISTER No Family History of: AIDS Abdominal aortic aneurysm Alzheimer's disease Asthma Cataracts Colon cancer Dementia Drug abuse Glaucoma Kidney disease Parkinson's disease Prostate cancer Respiratory disorder Seizure disorder Severe allergy Thyroid disease Tuberculosis Visual disorder Physical Exam Vital Signs Vital Signs - First Documented 12/08/22 12:08 Temp 36.0 Pulse 83 Resp 16 B/P (MAP) 129/91 (104) Pulse Ox 97 O2 Delivery Room Air Capillary Refill : General Appearance: WD/WN, no apparent distress Cardiovascular: regular rate, rhythm Respiratory: lungs clear, normal breath sounds, no respiratory distress, no accessory muscle use Extremities: normal range of motion, normal inspection Neurologic/Psychiatric: alert, normal mood/affect Skin: warm/dry Skin Problem Location: torso (Left upper chest near pacemaker) Skin Problem Character: erythema, linear, other (2 raised areas) Progress/Results/Core Measures Results/Orders Vital Signs/I&O 12/08/22 12/08/22 12:08 12:43 Temp 36.0 36.0 Pulse 83 83 Resp 16 16 B/P (MAP) 129/91 (104) 129/91 Pulse Ox 97 97 O2 Delivery Room Air Room Air Blood Pressure Mean: 104 Progress Progress Note : Progress Note Patient seen and evaluated, resting comfortably in recliner, no acute distress. Based on exam and symptoms, this is likely an insect bite. Mild area of erythema, 2 small areas of elevation, area does not feel warmer than the rest of her skin. I do not think that this is infected. Patient instructed to monitor the area for increase in redness or swelling. Discharge instructions and return precautions provided. Departure Impression Primary Impression: Insect bite Disposition: 01 HOME, SELF-CARE Condition: Stable Departure-Patient Inst. Decision time for Depature: 12:38 Referrals: FAB NEWMAN DO (PCP/Family) Primary Care Physician Patient Instructions: Insect Bites and Stings ED Add. Discharge Instructions: Monitor area, return or see your primary care provider if the area of redness increases becomes painful. Return for any new, concerning, or worsening symptoms. All discharge instructions reviewed with patient and/or family. Voiced understanding. PRAKASH VALDIVIA APRN Dec 08, 2022 12:35
[2022-12-08 12:43] VITALS: BP 129/91
== END 2022-12-08 12:43 | disposition home or self-care (01) ==
LOC: EDUNIT# 11:57 → ER 11:59
DX: S20.362A Insect bite (nonvenomous) of left front wall of thorax, initial encounter (principal); Z95.0 Presence of cardiac pacemaker; W57.XXXA Bitten or stung by nonvenomous insect and other nonvenomous arthropods, initial encounter
CPT/HCPCS: 99281